=== PATIENT | male | born 1950 | race Hispanic/Latino ===

== ENCOUNTER 2017-07-30 16:02 | Emergency (ER) | payer MEDICAID, MEDICARE ==
[2017-07-30] MEDS ORDERED: ISOVUE-370 76%-LOCM 1 ML ONE (16:12)
--- NOTE | 2017-07-30 16:57 | RAD ---
RADIOGRAPH CHEST 1 VIEW: HISTORY: 66-year-old male with hematemesis. FINDINGS: There is no air space density, pulmonary edema, or pneumothorax. The lateral costophrenic angles ar e sharp. IMPRESSION: No acute pulmonary findings. margareth [] POS: KYLAH
[2017-07-30 17:04] LABS: #Eosinphils 0.1 thou/uL (0.0-0.7); #Lymphocytes 0.7 thou/uL (1.20-3.40); #Monocytes 0.4 thou/uL (0.11-0.59); %Eosinophils 0.7 % (0.0-10.0); %Lymphocytes 7.2 % (21.0-51.0); %Monocytes 3.9 % (0.0-10.0); Hematocrit 47.1 % (42.0-52.0); Mean Platelet Volume 10.4 fL (7.4-10.4); Red Blood Cell (RBC) Count 5.07 mill/uL (4.70-6.10); White Blood Cell (WBC) Count 10.2 thou/uL (4.8-10.8)
[2017-07-30 17:10] LABS: PTT 35.7 SEC (22.9-36.1); Prothrombin Time 13.9 SEC (12.0-14.7)
[2017-07-30 17:23] LABS: ALT (SGPT) 23 U/L (8-55); AST (SGOT) 17 U/L (5-34); Alkaline Phosphatase 114 U/L (40-150); Anion Gap 14 mmol/L (10-20); BUN (Urea Nitrogen) 21 mg/dL (8.4-25.7); Bilirubin, Total 0.5 mg/dL (0.2-1.2); Calc. Creatinine Clearance 0 mL/min (70-130); Calcium 10.4 mg/dL (7.8-10.44); Carbon Dioxide 31 mmol/L (23-31); Chloride 100 mmol/L (98-107); Estimated GFR-MDRD Greater than 90; Globulin 3.6 g/dL (2.4-3.5); Lipase 52 U/L (8-78); Magnesium 1.8 mg/dL (1.6-2.6); Protein, Total 7.6 g/dL (5.8-8.1)
[2017-07-30] MEDS ORDERED: Ondansetron HCl/PF 4 MG/2 ML Vial ONE (18:52)
[2017-07-30] MEDS ORDERED: Metoclopramide HCl 10 MG/2 ML VIAL ONE (20:53)
--- NOTE | 2017-07-30 21:27 | CT ---
CT ABDOMEN WITH CONTRAST CT PELVIS WITH CONTRAST: DATE: 07/30/2017 TIME: 7:23 p.m. HISTORY: A 66-year-old male with hematemesis, vomiting, and nausea. Small bowel obstruction. COMPARISON: 02/05/2014 TECHNIQUE: IV injection of iodinated contrast media: Administered. Oral contrast media: Not administered. FINDINGS: Again noted is the percutaneous gastrostomy tube. Again noted is the ventral diastasis between the very thin left and right rectus abdominus muscles, at midline, in the upper portion of the abdomen. This has widened from previous diameter of 5.8 cm, to current diameter of 7 cm. Again noted is a p ortion of the gastric body herniating through this. There is a new finding of a loop of transverse colon which also now herniates through this. There is no edema within the hernia sac, and no coloni c or small intestinal dilation to indicate any bowel obstruction. The lung bases are grossly clear. No pneumoperitoneum or ascites. Atherosclerotic calcification without aneurysm of the abdominal a ephraim. Distended urinary bladder with normal, thin zavala. No acute colonic diverticulitis. Normal appendix. Adherence of ascending colon and small bowel loops to the right anterior peritoneal surfa ce, suggestive of adhesions from previous surgery. No fat stranding. A dependent layer of numerous tiny calcified gallstones, significantly increased in number since previous CT. No gallbladder wal l thickening or pericholecystic edema. No major pathology of the bilateral kidneys, liver, pancreas , adrenals, or spleen. Diffuse mural thickening and mural low attenuation of the distal esophagus. IMPRESSION: 1. Possible esophagitis. 2. Percutaneous gastrostomy tube. 3. Interval widening of ventral hernia, with herniation of portions of the transverse colon and sto mach. 4. Cholelithiasis without acute cholecystitis. 5. No small bowel obstruction. JAKE Riley POS: KYLA[facility]
== END 2017-07-30 21:55 | disposition home or self-care (01) ==
LOC: ERS 16:02
DX: K20.9 Esophagitis, unspecified (principal); D64.9 Anemia, unspecified; E11.9 Type 2 diabetes mellitus without complications; F32.9 Major depressive disorder, single episode, unspecified; F41.9 Anxiety disorder, unspecified; I10 Essential (primary) hypertension; J44.9 Chronic obstructive pulmonary disease, unspecified; K21.9 Gastro-esophageal reflux disease without esophagitis; Z87.891 Personal history of nicotine dependence; Z86.73 Personal history of transient ischemic attack (TIA), and cerebral infarction without residual deficits; Z79.84 Long term (current) use of oral hypoglycemic drugs; Z79.899 Other long term (current) drug therapy
CPT/HCPCS: 36415; 71010; 74177; 80053; 82271; 82274; 83690; 83735; 85025; 85610; 85730; 86850; 86900; 86901; 96361; 96365; 96375; J2405; J2765

== ENCOUNTER 2018-01-18 16:16 | Emergency (ER) | payer MEDICARE, MEDICAID ==
[~2018-01-18 16:16] MED LIST: ISOVUE-370 76%-LOCM 1 ML ONE; Iopamidol 370 76% 50 ML VIAL FS ONE
[2018-01-18] MEDS ORDERED: Ondansetron HCl/PF 4 MG/2 ML Vial ONE (17:07)
[2018-01-18 17:17] LABS: Hemoglobin 15.4 g/dL (14.0-18.0); Mean Corpuscular HGB CONC 34.7 g/dL (32.0-36.0); Mean Platelet Volume 10.5 fL (7.4-10.4); Platelet Count 158 thou/uL (130-400); RBC Distribution Width 12.4 % (11.5-14.5); White Blood Cell (WBC) Count 13.7 thou/uL (4.8-10.8)
--- NOTE | 2018-01-18 17:20 | RAD ---
PORTABLE CHEST: FINDINGS: Provided Clinical History: Cough. FINDINGS: Comparison 07-30-17. Cardiac and mediastinal silhouette is unchanged in appearance. Lungs appear clear. No pleural fluid o r pneumothorax apparent. IMPRESSION: No evidence for an acute cardiopulmonary process. POS: CET
[2018-01-18 17:22] LABS: INR-International Normal Ratio 1.2; PTT 38.8 SEC (22.9-36.1)
[2018-01-18 17:31] LABS: Band 6 % (5-11); Eosinophils 1 % (0-10); Lymphocytes 1 % (21-51); MDiff Complete? YES; Monocytes 1 % (0-10); Neutrophil 90 % (42-75); PLT Morphology Comment Appears Adequate; RBC Morphology Normal; Reactive Lymphocytes 1 % (0-10)
[2018-01-18 17:39] LABS: ALT (SGPT) 33 U/L (8-55); AST (SGOT) 21 U/L (5-34); Alkaline Phosphatase 112 U/L (40-150); Anion Gap 15 mmol/L (10-20); BUN (Urea Nitrogen) 18 mg/dL (8.4-25.7); Bilirubin, Total 1.2 mg/dL (0.2-1.2); CK (CPK) 55 U/L (30-200); Calc. Creatinine Clearance 0 mL/min (70-130); Carbon Dioxide 26 mmol/L (23-31); Chloride 101 mmol/L (98-107); Estimated GFR-MDRD Greater than 90; Globulin 3.5 g/dL (2.4-3.5); Glucose 126 mg/dL (80-115); Potassium 4.2 mmol/L (3.5-5.1); Protein, Total 7.5 g/dL (5.8-8.1); Sodium 138 mmol/L (136-145)
--- NOTE | 2018-01-18 21:34 | CT ---
ABDOMEN AND PELVIC CT SCAN WITH IV CONTRAST: 01/18/18 HISTORY: 67-year-old male with abdominal distention. COMPARISON: 07/30/17. FINDINGS: Minimal bilateral posterior pleural thickening and minimal pleural based parenchymal changes having m ore of an appearance of chronic change versus some minimal subsegmental atelectasis. There does appea r to be some distal esophageal borderline wall thickening, nonspecific, possibly related to some esop hagitis. Three vessel coronary artery calcific disease. Gallstones in the dependent portion of the ga llbladder without gallbladder wall thickening or pericholecystic fluid or fat stranding. The liver, p ancreas, spleen, adrenal glands are unremarkable. No evidence for renal calculi or acute obstructi on. Again noted is a very large ventral hernia which contains a portion of a somewhat gas and barium distended stomach, although there does not appear to be any associated obstruction with this. Gastros delmer tube in place. Oral contrast has progressed throughout most of the small bowel and into the ileu m in the right lower quadrant without evidence for associated bowel obstruction. No CT evidence for a cute appendicitis. 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 No abscess or adenopathy or abnormal fluid collection. IMPRESSION: Fairly large anterior abdominal defect/ventral hernia containing a somewhat gas and barium distended portion of the stomach without evidence for associated obstruction. Contrast media has progressed wel l into the ileum. Cholelithiasis without cholecystitis. Possible mild thickening of the distal esopha garfield, nonspecific. Nonspecific pleural thickening and pleural based parenchymal changes in both lung b ases, possibly chronic versus minimal subsegmental atelectasis. No evidence for other significant acu te process. POS: KYLA[facility]
--- NOTE | 2018-01-22 00:26 | EKG ---
Test Reason : Blood Pressure : / mmHG Vent. Rate : 096 BPM Atrial Rate : 096 BPM P-R Int : 148 ms QRS Dur : 080 ms QT Int : 364 ms P-R-T Axes : 044 070 043 degrees QTc Int : 459 ms Normal sinus rhythm Nonspecific T wave abnormality Abnormal ECG Confirmed by ANGELA TORO ([id number]), television news video editor DESHAWN PAEZ ([id number]) on 01/22/2018 12:25:29 AM Referred By: Confirmed By:ANGELA TORO
== END 2018-01-18 21:54 | disposition home or self-care (01) ==
LOC: ERS 16:16
DX: K43.9 Ventral hernia without obstruction or gangrene (principal); K20.9 Esophagitis, unspecified; J44.9 Chronic obstructive pulmonary disease, unspecified; I10 Essential (primary) hypertension; D64.9 Anemia, unspecified; F41.9 Anxiety disorder, unspecified; F32.9 Major depressive disorder, single episode, unspecified; E11.9 Type 2 diabetes mellitus without complications; K21.9 Gastro-esophageal reflux disease without esophagitis; Z79.899 Other long term (current) drug therapy; Z87.442 Personal history of urinary calculi; Z87.891 Personal history of nicotine dependence; Z86.73 Personal history of transient ischemic attack (TIA), and cerebral infarction without residual deficits
CPT/HCPCS: 36415; 71045; 74177; 80053; 82550; 85025; 85610; 85730; 86850; 86900; 86901; 87040; 87149; 87186; 93005; 94760; 96374; J2405

== ENCOUNTER 2018-01-24 09:31 | Emergency (ER) | payer MEDICARE, MEDICAID ==
[2018-01-24 10:33] LABS: Hemoglobin 13.9 g/dL (14.0-18.0); Mean Corpuscular HGB CONC 33.8 g/dL (32.0-36.0); Mean Corpuscular Hemoglobin 32.4 pg (27.0-31.0); Mean Corpuscular Volume 95.9 fl (80.0-94.0); Mean Platelet Volume 9.8 fL (7.4-10.4); Platelet Count 215 thou/uL (130-400); RBC Distribution Width 12.3 % (11.5-14.5); Red Blood Cell (RBC) Count 4.29 mill/uL (4.70-6.10); White Blood Cell (WBC) Count 7.8 thou/uL (4.8-10.8)
[2018-01-24 10:52] LABS: ALT (SGPT) 29 U/L (8-55); AST (SGOT) 23 U/L (5-34); Albumin 3.7 g/dL (3.4-4.8); Alkaline Phosphatase 94 U/L (40-150); Anion Gap 12 mmol/L (10-20); BUN (Urea Nitrogen) 20 mg/dL (8.4-25.7); Band 4 % (5-11); Bilirubin, Total 0.3 mg/dL (0.2-1.2); CRP (Inflammatory) 3.64 mg/dL (= or < 0.5); Calc. Creatinine Clearance 0 mL/min (70-130); Calcium 9.9 mg/dL (7.8-10.44); Carbon Dioxide 29 mmol/L (23-31); Chloride 103 mmol/L (98-107); Eosinophils 3 % (0-10); Estimated GFR-MDRD Greater than 90; Globulin 3.6 g/dL (2.4-3.5); Glucose 131 mg/dL (80-115); Lymphocytes 12 % (21-51); MDiff Complete? YES; Monocytes 5 % (0-10); Neutrophil 76 % (42-75); Potassium 4.1 mmol/L (3.5-5.1); Protein, Total 7.3 g/dL (5.8-8.1); RBC Morphology Normal; Sodium 140 mmol/L (136-145)
== END 2018-01-24 13:10 | disposition home or self-care (01) ==
LOC: ERS 09:31
DX: R10.9 Unspecified abdominal pain (principal); F03.90 Unspecified dementia, unspecified severity, without behavioral disturbance, psychotic disturbance, mood disturbance, and anxiety; I10 Essential (primary) hypertension; J44.9 Chronic obstructive pulmonary disease, unspecified; D64.9 Anemia, unspecified; E11.9 Type 2 diabetes mellitus without complications; K21.9 Gastro-esophageal reflux disease without esophagitis; F41.9 Anxiety disorder, unspecified; Z87.442 Personal history of urinary calculi; Z87.891 Personal history of nicotine dependence; Z79.899 Other long term (current) drug therapy; Z79.84 Long term (current) use of oral hypoglycemic drugs
CPT/HCPCS: 36415; 80053; 85025; 85652; 86140; 87040; 99285

== ENCOUNTER 2018-07-11 16:18 | Emergency (ER) | payer MEDICARE, MEDICAID | END 2018-07-11 16:38 | disposition home or self-care (01) | LOC: ERS 16:18 | DX: Z43.1 Encounter for attention to gastrostomy (principal); F41.9 Anxiety disorder, unspecified; F32.9 Major depressive disorder, single episode, unspecified; D64.9 Anemia, unspecified; I10 Essential (primary) hypertension; J44.9 Chronic obstructive pulmonary disease, unspecified; Z86.73 Personal history of transient ischemic attack (TIA), and cerebral infarction without residual deficits; Z79.899 Other long term (current) drug therapy; Z87.442 Personal history of urinary calculi; Z79.84 Long term (current) use of oral hypoglycemic drugs | CPT/HCPCS: 43760; B4087 ==

== ENCOUNTER 2019-05-25 11:24 | Inpatient (IN) | payer MEDICARE, MEDICAID ==
--- NOTE | 2019-05-25 13:22 | CT ---
CT OF THE ABDOMEN AND PELVIS WITH CONTRAST: Date: 05/25/19 COMPARISON: 01/18/18. HISTORY: Sepsis. TECHNIQUE: Multiple contiguous axial images were obtained in a CT of the abdomen and pelvis with contrast. A sma ll amount of enteric contrast was given. Coronal reformats were performed. FINDINGS: There are calcified gallstones in the gallbladder. The liver, kidneys, adrenal glands, spleen, and pa ncreas are unremarkable. No free air, free fluid, or stranding changes are seen in the abdomen or pel vis. The patient has a large ventral hernia measuring 6.2 cm in width containing colon and stomach. A meng rostomy tube is seen in the stomach. The small bowel is normal in caliber. No abdominal or pelvic lym phadenopathy seen. Atherosclerotic calcifications are seen in the aorta. Degenerative changes are seen in the spine. Bibasilar atelectasis is seen in the lung bases. IMPRESSION: 1. Cholelithiasis. 2. Ventral hernia containing stomach and colon that are nonobstructed. POS: KYLA[facility]
[2019-05-25 14:11] LABS: Lactic Acid 1.6 mmol/L (0.5-2.2)
[2019-05-25] MEDS ORDERED: ISOVUE-370 76%-LOCM 1 ML ONE (15:49)
[2019-05-25] MEDS ORDERED: Ondansetron ODT 4 MG TAB SL PRN (16:15)
[2019-05-25] MEDS ORDERED: Sodium Chloride 0.9% 1,000 ML IV SCH (16:15)
[2019-05-25] MEDS ORDERED: Ondansetron PF 4 MG/2 ML Vial IVP PRN (16:15)
[2019-05-25 16:34] VITALS: BMI 25.4
[2019-05-25] MEDS ORDERED: Piperacillin/Tazobactam 4.5 GM in Sodium Chloride 0.9% 100 ML IVPB SCH (17:00)
[2019-05-25] MEDS ORDERED: Acetaminophen 650 MG Suppository PR PRN (18:11)
[2019-05-25] MEDS ORDERED: Bisacodyl 10 MG SUPP PR PRN (18:11)
[2019-05-25] MEDS ORDERED: Enoxaparin Sodium 40 MG/0.4 ML SYRINGE SC SCH (18:15)
[2019-05-25] MEDS ORDERED: Dextrose 50% Abboject 50 ML SYRINGE SLOW IVP PRN (18:44)
[2019-05-25] MEDS ORDERED: Insulin Regular 300 UNITS/3 ML VIAL SC PRN (18:44)
[2019-05-25] MEDS ORDERED: Dextrose 5% in Water 1,000 ML IV PRN (18:44)
[2019-05-25] MEDS ORDERED: hydrALAZINE 20 MG/ML VIAL SLOW IVP PRN (18:48)
[2019-05-25] MEDS ORDERED: Haloperidol Lactate 5 MG/ML VIAL IM PRN (18:49)
[2019-05-25] MEDS ORDERED: Lorazepam 2 MG/ML VIAL SLOW IVP PRN (18:50)
[2019-05-25 19:35] LABS: Bilirubin Negative (Negative); Blood, Urine 2+ (Negative); Clarity Clear (Clear); Glucose, Urine (Dipstick) Normal (Negative); Leukocyte 25 Leu/uL (Negative); Nitrite Negative (Negative); Protein, Urine (Dipstick) 10 mg/dL (Neg-Trace); Urobilinogen Normal mg/dL (Less than 2)
--- NOTE | 2019-05-25 19:45 | RAD ---
XR Chest 1 View History: Shortness of breath Comparison: Radiograph same day Findings: Mild atelectasis in the lung bases. No pneumothorax. No acute osseous abnormality. There is a collection of contrast within the gastric fundus. Impression: Mild atelectasis in the lung bases.
[2019-05-25] MEDS: levETIRAcetam In NaCl (Iso-Os) 1,000 MG in Premix Bag 1 BAG IVPB SCH (20:26)
--- NOTE | 2019-05-25 20:37 | HP ---
CHIEF COMPLAINT: Sepsis. HISTORY OF PRESENT ILLNESS: Mr. Cannon is an unfortunate 68-year-old gentleman with extensive past medical history including stroke with residual deficits, dysphagia with chronic PEG tube, hypertension, seizure disorder, depression, BPH, seasonal allergies, and diabetes. The patient is minimally verbal at baseline and is able to only answer yes and no to simple questions. Per history, the patient is a chronic resident of long term facility. There was some difficulty with his feeding tube and the patient was transferred for further evaluation where he was found to be febrile and having elevated WBC count. He was transferred to [facility] for higher level of care. History is primarily obtained from chart and staff as the patient is not able to give meaningful history. At outside facility, the patient was found to have WBC count of 15,000 and fever of 102 in addition to elevated lactic acid level at 2.8. Upon arrival to [place], the patient was found to be afebrile after administration of broad-spectrum antibiotics including vancomycin and Zosyn in addition to several liters of IV fluid resuscitation. It was reported that the patient was having malfunctioning PEG tube at [facility], however, when further tested in the emergency department, appears to be flushing and returning fluid without difficulty. I have found the patient on the medical floor/surgical floor in no apparent distress and resting in bed comfortably. The patient does have significant flexion contractures of the right upper extremity and profound generalized weakness. Again, the patient not able to give much meaningful history at this time. PAST MEDICAL HISTORY: 1. Cerebrovascular accident with residual right-sided motor deficits with flexion contractures. 2. Seizure disorder. 3. Diabetes mellitus. 4. Hypertension. 5. Hyperlipidemia. 6. Depression. 7. GERD. 8. BPH. REVIEW OF SYSTEMS: A 10-point review of systems was obtained, however, unreliable secondary to the patient's mental status. MEDICATIONS: See full list for details: 1. Multivitamin. 2. Amlodipine. 3. Acetaminophen. 4. Escitalopram. 5. Doxazosin. 6. Docusate liquid. 7. Loratadine. 8. Esomeprazole. 9. Metoprolol tartrate. 10. Milk of magnesia. 11. Potassium chloride. 12. Polyethylene glycol 3350 (MiraLax). 13. Zofran. 14. Ranitidine. 15. Keppra. 16. Simethicone. 17. Saccharomyces. 18. Metformin. ALLERGIES: CODEINE. PHYSICAL EXAMINATION: GENERAL: The patient is lying in bed, in no acute distress. He is responsive with yes and no to simple questions; however, he is not able to give any other words or significant history. VITAL SIGNS: Temperature on arrival 98.3, pulse 81, respirations 20, O2 saturations 95% on 2 L nasal cannula, blood pressure 124/76. HEENT: The patient has moist mucous membranes. Pupils are equally round and reactive to light and accommodation. Extraocular muscles are intact. NECK: Supple. CARDIOVASCULAR: Regular rate and rhythm. No murmur appreciated. No rubs or gallops. LUNGS: There is diffuse wheezing bilaterally in upper lung moise, more significant in lower lung moise. There are few scattered rhonchi, no rales. ABDOMEN: PEG tube is intact, however, not connected. Dressing is clean and dry. There is no obvious infection at PEG tube site. Abdomen is soft, nontender, nondistended. EXTREMITIES: Right upper extremity with flexion contracture. The patient does resist active and passive range of motion and it is stuck in a flexed position. The patient is globally weak, however, motor strength cannot be accurately assessed secondary to mental status. PSYCHIATRIC: The patient answers yes to his name and answers no to if he knows where he is at. The patient answers no to pain. LABORATORY DATA: Much of the laboratory data was performed at outside facility and initially reviewed for WBC count of 15,000. Lactic acid level of 2.8. Please see for transfer documents for detail. IMAGING DATA: CT scan of the abdomen, impression: 1. Cholelithiasis without acute cholecystitis. 2. Ventral hernia containing the stomach that is nonobstructive. 3. Gastrostomy tube is seen in the stomach. ASSESSMENT: 1. Sepsis without definitive source at this time. Chest x-ray was clear from outside facility. Urinalysis is pending though the patient is a resident of a nursing facility. The patient was started on broad-spectrum IV antibiotics, sepsis protocol, IV fluid resuscitation. 2. Leukocytosis. 3. Fever. 4. Cerebrovascular accident with residual deficits on the right side. 5. Seizure disorder. 6. Diabetes mellitus. 7. Hypertension. 8. Hyperlipidemia. 9. Benign prostatic hypertrophy. 10. Chronic dysphagia with percutaneous endoscopic gastrostomy tube. PLAN: 1. Admit to medical floor/surgical unit. 2. Broad-spectrum IV antibiotics. 3. IV fluid resuscitation. 4. Sepsis protocol. 5. Gastroenterology consultation requested to further assess the patient's malfunctioning PEG tube that was reported at long term [facility]. 6. We will resume enteral nutrition after being given the okay by Gastroenterology. 7. Resume home medications as able, no oral medications at this time as we are not using the PEG tube. 8. Symptomatic control of elevated blood pressure. 9. Symptomatic control for agitation. Job ID: [id number]
[2019-05-25] MEDS ORDERED: Vancomycin HCl 1 GM in Premix Bag 1 BAG IVPB SCH (22:00)
[2019-05-25] MEDS: Vancomycin HCl 1.25 GM in Sodium Chloride 0.9% 250 ML 250 ML IVPB SCH (22:17)
[2019-05-26] MEDS: Piperacillin/Tazobactam 4.5 GM in Sodium Chloride 0.9% 100 ML IVPB SCH ×5 (00:04→23:54)
[2019-05-26 05:53] LABS: #Lymphocytes 0.6 thou/uL (1.20-3.40); #Monocytes 0.8 thou/uL (0.11-0.59); #Neutrophils 8.3 thou/uL (1.40-6.50); %Eosinophils 0.1 % (0.0-10.0); %Lymphocytes 5.9 % (21.0-51.0); %Monocytes 8.1 % (0.0-10.0); %Neutrophils 85.9 % (42.0-75.0); Hemoglobin 12.9 g/dL (14.0-18.0); Mean Corpuscular HGB CONC 34.4 g/dL (32.0-36.0); Mean Corpuscular Hemoglobin 32.3 pg (27.0-31.0); Mean Platelet Volume 11.2 fL (7.4-10.4); Platelet Count 127 thou/uL (130-400); Red Blood Cell (RBC) Count 3.99 mill/uL (4.70-6.10); White Blood Cell (WBC) Count 9.6 thou/uL (4.8-10.8)
[2019-05-26 06:10] LABS: Albumin 3.3 g/dL (3.4-4.8); Anion Gap 11 mmol/L (10-20); BUN (Urea Nitrogen) 15 mg/dL (8.4-25.7); BUN/Creatinine Ratio 20.55; Calc. Creatinine Clearance 113 mL/min (70-130); Calcium 8.5 mg/dL (7.8-10.44); Carbon Dioxide 24 mmol/L (23-31); Chloride 108 mmol/L (98-107); Estimated GFR-MDRD Greater than 90; Glucose 109 mg/dL (80-115); Potassium 3.1 mmol/L (3.5-5.1); Sodium 140 mmol/L (136-145)
[2019-05-26 06:16] LABS: Phosphorus 1.9 mg/dL (2.3-4.7)
[2019-05-26] MEDS ORDERED: Potassium Phosphate 21 MMOL in Sodium Chloride 0.9% 250 ML 250 ML IVPB SCH (06:45)
[2019-05-26] MEDS ORDERED: Furosemide 40 MG/4 ML VIAL SLOW IVP SCH (06:45)
[2019-05-26] MEDS: levETIRAcetam In NaCl (Iso-Os) 1,000 MG in Premix Bag 1 BAG IVPB SCH (09:05)
[2019-05-26] MEDS: Vancomycin HCl 1.25 GM in Sodium Chloride 0.9% 250 ML 250 ML IVPB SCH ×2 (10:30→22:27)
[2019-05-26] MEDS ORDERED: Docusate Sodium 100 MG/10 ML UDCUP PER TUBE PRN (13:32)
[2019-05-26] MEDS ORDERED: Loratadine 10 MG TAB PER TUBE PRN (13:32)
[2019-05-26] MEDS ORDERED: Polyethylene Glycol 3350 17 GM Packet PER TUBE PRN (13:32)
[2019-05-26] MEDS ORDERED: Milk Of Magnesia 30 ML UDCUP PER TUBE PRN (13:32)
[2019-05-26] MEDS ORDERED: [UNRECOGNIZED DRUG - REMARK] PER TUBE PRN (13:32)
[2019-05-26] MEDS ORDERED: Non-Formulary Item 1 EACH (Ondansetron Hcl [Zofran] 4 MG) PER TUBE PRN (13:32)
[2019-05-26] MEDS ORDERED: Mag-Al Plus 1200 MG/1200 MG/120 MG/30 ML UDCUP PER TUBE PRN (13:32)
[2019-05-26] MEDS ORDERED: Acetaminophen 650 MG/20.3 ML UDCUP PER TUBE PRN (13:40)
[2019-05-26] MEDS ORDERED: Ondansetron ORAL SOLN. 4 MG/5 ML UDCUP PER TUBE PRN (13:53)
--- NOTE | 2019-05-26 14:10 | PDOC.HOSPP ---
- Subjective Subjective: Patient seen and examined. Doing better clinically. Discussed case with GI who state that PEG tube is now functional. Patient more quick to respond to questions. Denies pain. Denies trouble breathing though there are still audible secretions in upper airway even without stethoscope. Duonebs seem to be helping. Resuming meds and feedings via PEG. - Objective Vital Signs & Weight: Vital Signs (12 hours) Temp Pulse Resp BP Pulse Ox 05/26/19 11:05 99 20 96 05/26/19 10:35 99.0 F 99 18 132/76 100 05/26/19 08:31 100 05/26/19 08:28 100 05/26/19 07:31 97.7 F 110 H 18 129/75 100 05/26/19 07:14 99 05/26/19 07:12 98 20 99 05/26/19 04:00 98.6 F 102 H 18 129/75 97 05/26/19 02:27 103 H 18 96 Weight Weight 177 lb Result Diagrams: 05/26/19 05:27 05/26/19 05:27 Additional Labs: Accuchecks 05/26/19 05/26/19 05/26/19 10:42 08:32 05:18 POC Glucose 134 H 130 H 109 05/26/19 05/25/19 00:19 19:26 POC Glucose 113 H 117 H Radiology Reviewed by me: Yes (Reviewed CXR portable) ROS - Medication Medications: Active Medications Generic Name Dose Route Start Last Admin Trade Name Freq PRN Reason Stop Dose Admin Albuterol/Ipratropium 3 ml 05/25/19 22:30 05/26/19 11:05 Duoneb NEB 3 ml [id number] ZHANG Administration Vancomycin HCl 1.25 gm/ Sodium 250 mls @ 166.67 mls/hr 05/25/19 22:00 10:30 Chloride IVPB 250 mls 1000,2200 ZHANG Administration Piperacillin Sod/Tazobactam 100 mls @ 200 mls/hr 05/25/19 23:59 05/26/19 12: 50 Sod 4.5 gm/ Sodium Chloride IVPB 06/01/19 23:59 100 mls Q6HR ZHANG Administration - Exam NAD Eye: PERRL, anicteric sclera Neck: supple, symmetric Heart: RRR, no murmur Respiratory: rhonchi, wheezes Respiratory - other findings: Decreased pulm excursion, poor air movement secondary to position in bed Gastrointestinal: soft, non-tender, non-distended Gastrointestinal - other findings: PEG tube in position, dressing clean and dry Extremities: no edema Skin: normal turgor, no lesions Skin - other findings: No significant skin breakdown/ sacral decub, see wound care pictures Neurological: no new deficit Neurological - other findings: Baseline flexion contractures and motor deficits from old CVA Musculoskeletal: generalized weakness, diffuse muscle atrophy Psychiatric: oriented to person, flat affect, lethargic Hosp A/P - Plan Plan: GI consultion, recommendations appreciated PEG tube now functional Resume diet and meds via PEG On broad spectrum ABX for sepsis. Improving WBC count 15 -> 9.6 Lactic acidosis resolving No significant growth on cultures to date Would consider ID consult if patient does not respond to IV ABX DVT PPX GI PPX
[2019-05-26] MEDS: levETIRAcetam 500 mg/5 ml Oral Solution PER TUBE SCH (20:28)
[2019-05-26] MEDS: Famotidine 40 MG/5 ML Oral Suspension PER TUBE SCH (20:30)
[2019-05-26] MEDS: Metoprolol Tartrate 50 MG TAB PER TUBE SCH (20:30)
[2019-05-26] MEDS: Simethicone Chewable 80 MG TAB PER TUBE SCH (20:30)
[2019-05-26] MEDS ORDERED: Non-Formulary Item 1 EACH (Ranitidine Hcl [Ranitidine Hcl] 150 MG) PER TUBE SCH (21:00)
[2019-05-26 21:26] LABS: Vancomycin, Trough 16.9 ug/mL
[2019-05-27] MEDS: Piperacillin/Tazobactam 4.5 GM in Sodium Chloride 0.9% 100 ML IVPB SCH ×3 (05:24→17:54)
[2019-05-27 06:04] LABS: Hemoglobin 12.5 g/dL (14.0-18.0); Mean Corpuscular HGB CONC 33.6 g/dL (32.0-36.0); Mean Corpuscular Hemoglobin 31.7 pg (27.0-31.0); Mean Corpuscular Volume 94.5 fL (78.0-98.0); Mean Platelet Volume 11.5 fL (7.4-10.4); Platelet Count 133 thou/uL (130-400); RBC Distribution Width 12.1 % (11.5-14.5); Red Blood Cell (RBC) Count 3.95 mill/uL (4.70-6.10); White Blood Cell (WBC) Count 9.4 thou/uL (4.8-10.8)
[2019-05-27 06:29] LABS: Anion Gap 13 mmol/L (10-20); BUN (Urea Nitrogen) 17 mg/dL (8.4-25.7); Calc. Creatinine Clearance 79 mL/min (70-130); Calcium 9.1 mg/dL (7.8-10.44); Carbon Dioxide 25 mmol/L (23-31); Chloride 107 mmol/L (98-107); Estimated GFR-MDRD 71; Glucose 109 mg/dL (80-115); Sodium 142 mmol/L (136-145)
[2019-05-27 06:34] LABS: Potassium 2.8 mmol/L (3.5-5.1)
[2019-05-27] MEDS: levETIRAcetam 500 mg/5 ml Oral Solution PER TUBE SCH ×2 (08:58→20:13)
[2019-05-27] MEDS: Pantoprazole 40 MG GRANULES PACKET PER TUBE SCH (08:59)
[2019-05-27] MEDS: Metoprolol Tartrate 50 MG TAB PER TUBE SCH ×2 (08:59→20:13)
[2019-05-27] MEDS: Saccharomyces boulardii 250 MG CAP PER TUBE SCH (08:59)
[2019-05-27] MEDS: Doxazosin Mesylate 1 MG TAB PER TUBE SCH (08:59)
[2019-05-27] MEDS: Escitalopram Oxalate 20 mg Tablet PER TUBE SCH (08:59)
[2019-05-27] MEDS: Simethicone Chewable 80 MG TAB PER TUBE SCH ×2 (08:59→20:13)
[2019-05-27] MEDS: Multivits W-Minerals Liquid 15mL UDCUP PER TUBE SCH (09:00)
[2019-05-27] MEDS ORDERED: MULTIVITAMIN PER TUBE SCH (09:00)
[2019-05-27] MEDS ORDERED: IRON PER TUBE SCH (09:00)
[2019-05-27] MEDS ORDERED: Non-Formulary Item 1 EACH (Esomeprazole Magnesium [Nexium Oral Suspension] 40 MG) PER TUBE SCH (09:00)
[2019-05-27] MEDS ORDERED: FOLIC ACID PER TUBE SCH (09:00)
[2019-05-27] MEDS: Famotidine 40 MG/5 ML Oral Suspension PER TUBE SCH ×2 (09:00→20:16)
[2019-05-27] MEDS: Vancomycin HCl 1.25 GM in Sodium Chloride 0.9% 250 ML 250 ML IVPB SCH (09:00)
[2019-05-27] MEDS: Amlodipine 10 MG TAB PER TUBE SCH (11:39)
--- NOTE | 2019-05-27 13:03 | PDOC.HOSPP ---
- Subjective Subjective: Patient seen and examined. Clinically improved. Faster to answers questions. More awake and alert. Right side remains with deficit and flexion contracture. Denies pain. Breathing more easily, still with some rhonchi. - Objective Vital Signs & Weight: Vital Signs (12 hours) Temp Pulse Resp BP BP Pulse Ox 05/27/19 11:39 88 119/76 05/27/19 10:24 103 H 20 05/27/19 08:00 96 05/27/19 07:10 99.1 F 98 17 104/70 96 05/27/19 06:38 97 05/27/19 06:37 90 20 05/27/19 04:47 99.2 F 95 19 129/76 95 05/27/19 01:36 84 18 95 Weight Admit Weight 177 lb Weight 177 lb I&O: 05/26/19 05/27/19 05/28/19 06:59 06:59 06:59 Intake Total 1100 Balance 1100 Result Diagrams: 05/27/19 05:07 05/27/19 05:07 Additional Labs: Accuchecks 05/27/19 05/27/19 05/27/19 11:26 07:39 04:34 POC Glucose 122 H 134 H 155 H 05/26/19 05/26/19 21:19 16:29 POC Glucose 163 H 145 H Radiology Reviewed by me: Yes (No new imaging) ROS - Medication Medications: Active Medications Generic Name Dose Route Start Last Admin Trade Name Freq PRN Reason Stop Dose Admin Albuterol/Ipratropium 3 ml 05/25/19 22:30 05/27/19 10:24 Duoneb NEB 3 ml [id number] ZHANG Administration Amlodipine Besylate 10 mg 05/27/19 09:00 05/27/19 11:39 Norvasc PER TUBE 10 mg DAILY ZHANG Administration Doxazosin Mesylate 1 mg 05/27/19 09:00 05/27/19 08:59 Cardura PER TUBE 1 mg DAILY ZHANG Administration Escitalopram Oxalate 20 mg 05/27/19 09:00 05/27/19 08:59 Lexapro PER TUBE 20 mg DAILY ZHANG Administration Famotidine 20 mg 05/26/19 21:00 05/27/19 09:00 Pepcid PER TUBE 20 mg BID ZHANG Administration Vancomycin HCl 1.25 gm/ Sodium 250 mls @ 166.67 mls/hr 05/25/19 22:00 09:00 Chloride IVPB 250 mls 1000,2200 ZHANG Administration Piperacillin Sod/Tazobactam 100 mls @ 200 mls/hr 05/25/19 23:59 05/27/19 12: 58 Sod 4.5 gm/ Sodium Chloride IVPB 06/01/19 23:59 100 mls Q6HR ZHANG Administration Iron/Minerals/Multivitamins 15 ml 05/27/19 09:00 05/27/19 09:00 Certa Praveen Liquid PER TUBE 15 ml DAILY ZHANG Administration Levetiracetam 1,000 mg 05/26/19 21:00 05/27/19 08:58 Keppra Oral Solution PER TUBE 1,000 mg BID ZHANG Administration Metoprolol Tartrate 75 mg 05/26/19 21:00 05/27/19 08:59 Lopressor PER TUBE 75 mg BID ZHANG Administration Pantoprazole Sodium 40 mg 05/27/19 09:00 05/27/19 08:59 Protonix PER TUBE 40 mg DAILY ZHANG Administration Potassium Chloride 20 meq 05/27/19 09:00 05/27/19 11:38 Klor-Con PER TUBE 20 meq DAILY ZHANG Administration Potassium Chloride 20 meq 05/27/19 08:00 05/27/19 11:38 Klor-Con PO 20 meq BID-WM ZHANG Administration Saccharomyces Boulardii 250 mg 05/27/19 09:00 05/27/19 08:59 Florastor PER TUBE 250 mg DAILY ZHANG Administration Simethicone 80 mg 05/26/19 21:00 05/27/19 08:59 Mylicon Chewable PER TUBE 80 mg BID ZHANG Administration Sodium Chloride 10 ml 05/26/19 21:00 05/27/19 09:00 Flush - Normal Saline IVF 10 ml Q12HR ZHANG Administration - Exam NAD, awake alert Eye: PERRL, anicteric sclera ENT: moist mucosa Neck: supple, symmetric Heart: RRR, no murmur, no gallops, no rubs Respiratory: rhonchi (Though improving). negative: rales Respiratory - other findings: Improved air movement. Breathing more easily. Gastrointestinal: soft, non-tender, non-distended, normal bowel sounds, no palpable masses, no hepatomegaly, no splenomegaly Gastrointestinal - other findings: PEG in position Extremities: no edema Skin: no lesions Neurological: no new deficit, speech deficit (at baseline) Neurological - other findings: Right sided deficits at baseline. Left UE 4/4 motor. Left LE 2/4 motor. Musculoskeletal: generalized weakness Psychiatric: oriented to person, flat affect Hosp A/P - Plan old records reviewed/req, PT/OT Plan: De escilate broad spectrum ABX for sepsis, culture negative at 48 hours will D/ c vancomycin. No significant growth on cultures to date Continue Zosyn Improving WBC count 15 -> 9.6 -> 9.4 GI consultion, recommendations appreciated PEG tube now functional Resume diet and meds via PEG Continue home meds as able DVT PPX GI PPX
[2019-05-28] MEDS: Piperacillin/Tazobactam 4.5 GM in Sodium Chloride 0.9% 100 ML IVPB SCH ×4 (05:46→17:02)
[2019-05-28 05:53] LABS: Hemoglobin 12.5 g/dL (14.0-18.0); Mean Corpuscular HGB CONC 33.5 g/dL (32.0-36.0); Mean Corpuscular Hemoglobin 31.2 pg (27.0-31.0); Mean Corpuscular Volume 93.2 fL (78.0-98.0); Mean Platelet Volume 10.6 fL (7.4-10.4); Platelet Count 119 thou/uL (130-400); Red Blood Cell (RBC) Count 4.02 mill/uL (4.70-6.10); White Blood Cell (WBC) Count 7.5 thou/uL (4.8-10.8)
[2019-05-28 06:21] LABS: Anion Gap 12 mmol/L (10-20); BUN (Urea Nitrogen) 26 mg/dL (8.4-25.7); Calc. Creatinine Clearance 40 mL/min (70-130); Carbon Dioxide 23 mmol/L (23-31); Chloride 111 mmol/L (98-107); Estimated GFR-MDRD 33; Glucose 141 mg/dL (80-115); Potassium 3.9 mmol/L (3.5-5.1); Sodium 142 mmol/L (136-145)
[2019-05-28] MEDS: Doxazosin Mesylate 1 MG TAB PER TUBE SCH (09:53)
[2019-05-28] MEDS: Metoprolol Tartrate 50 MG TAB PER TUBE SCH ×2 (09:53→20:16)
[2019-05-28] MEDS: levETIRAcetam 500 mg/5 ml Oral Solution PER TUBE SCH ×2 (09:53→20:16)
[2019-05-28] MEDS: Escitalopram Oxalate 20 mg Tablet PER TUBE SCH (09:53)
[2019-05-28] MEDS: Pantoprazole 40 MG GRANULES PACKET PER TUBE SCH (09:54)
[2019-05-28] MEDS: Amlodipine 10 MG TAB PER TUBE SCH (09:54)
[2019-05-28] MEDS: Saccharomyces boulardii 250 MG CAP PER TUBE SCH (09:55)
[2019-05-28] MEDS: Simethicone Chewable 80 MG TAB PER TUBE SCH ×2 (09:55→20:16)
[2019-05-28] MEDS: Multivits W-Minerals Liquid 15mL UDCUP PER TUBE SCH (09:55)
[2019-05-28] MEDS: Famotidine 40 MG/5 ML Oral Suspension PER TUBE SCH (09:57)
--- NOTE | 2019-05-28 11:06 | CON ---
DATE OF CONSULTATION: 05/26/2019 REASON FOR CONSULTATION/HISTORY OF PRESENT ILLNESS: A 68-year-old Latin- Maltese male, previous CVA, status post PEG tube placement in the past. Apparently, there was some malfunctioning of the PEG tube and he was [facility]. There is also history of some fever of 102 at the [facility]. MEDICAL ILLNESSES: 1. CVA with residual right-sided weakness and contractions on the right side. 2. Seizure disorder. 3. Diabetes mellitus. 4. Hypertension. 5. Hyperlipidemia. 6. Depression. 7. Chronic upper extremity contractures 8. BPH. ALLERGIES: CODEINE. SOCIAL HISTORY: The patient does not smoke or drink alcohol. MEDICATIONS: List reviewed, multiple, per Dr. Graf's admitting history and physical. REVIEW OF SYSTEMS: Nonrelevant. PHYSICAL EXAMINATION: GENERAL: The patient appears very comfortable. He is awake and alert and does communicate well. He has abdominal pain and nausea. He has right-sided contractures upper extremities. VITAL SIGNS: Afebrile, pulse is 81, and blood pressure is 124/76. NECK: Supple. CARDIOVASCULAR SYSTEM: Within normal limits. LUNGS: Within normal limits. ABDOMEN: Soft. Abdomen is mildly distended, but nontender. Does have a gastrostomy tube and was irrigated with water and_ suctioned out, there is good flow. RECOMMENDATIONS: 1. We will start tube feeding as before. 2. We will sign off and if any problems, please call us back. Job ID: [id number] [id number]
[2019-05-28] MEDS: 1/2 NS w/KCL 20 mEq 1,000 ML IV SCH (12:55)
--- NOTE | 2019-05-28 14:35 | PDOC.HOSPP ---
- Subjective Subjective: Patient seen and examined. Clinically unchanged from yesterday. Yes and no to questions. Denies pain. Breathing better. Renal function up trending, starting IV fluids, will consider Nephrology consultation if does not improve. - Objective Vital Signs & Weight: Vital Signs (12 hours) Temp Pulse Resp BP BP Pulse Ox 05/28/19 14:07 106 H 20 96 05/28/19 13:00 123/65 05/28/19 10:28 87 16 96 05/28/19 10:11 98 05/28/19 09:54 106 H 123/67 05/28/19 07:17 98.0 F 106 H 18 123/67 98 05/28/19 06:35 98 16 94 L Weight Admit Weight 177 lb Weight 177 lb I&O: 05/27/19 05/28/19 05/29/19 06:59 06:59 06:59 Intake Total 1100 Balance 1100 Result Diagrams: 05/28/19 05:39 05/28/19 05:39 Additional Labs: Accuchecks 05/28/19 05/27/19 05/27/19 04:44 20:31 15:49 POC Glucose 140 H 127 H 126 H ROS - Medication Medications: Active Medications Generic Name Dose Route Start Last Admin Trade Name Freq PRN Reason Stop Dose Admin Albuterol/Ipratropium 3 ml 05/25/19 22:30 05/28/19 14:07 Duoneb NEB 3 ml [id number] ZHANG Administration Amlodipine Besylate 10 mg 05/27/19 09:00 05/28/19 09:54 Norvasc PER TUBE 10 mg DAILY ZHANG Administration Doxazosin Mesylate 1 mg 05/27/19 09:00 05/28/19 09:53 Cardura PER TUBE 1 mg DAILY ZHANG Administration Escitalopram Oxalate 20 mg 05/27/19 09:00 05/28/19 09:53 Lexapro PER TUBE 20 mg DAILY ZHANG Administration Piperacillin Sod/Tazobactam 100 mls @ 200 mls/hr 05/25/19 23:59 05/28/19 12: 34 Sod 4.5 gm/ Sodium Chloride IVPB 06/01/19 23:59 100 mls Q6HR ZHANG Administration Potassium Chloride/Sodium Chloride 1,000 mls @ 75 mls/hr 05/28/19 08:30 05/28 12:55 1/2 Ns W/Kcl 20 Meq IV 1,000 mls .[id number] ZHANG Administration Iron/Minerals/Multivitamins 15 ml 05/27/19 09:00 05/28/19 09:55 Certa Praveen Liquid PER TUBE 15 ml DAILY ZHANG Administration Levetiracetam 1,000 mg 05/26/19 21:00 05/28/19 09:53 Keppra Oral Solution PER TUBE 1,000 mg BID ZHANG Administration Metoprolol Tartrate 75 mg 05/26/19 21:00 05/28/19 09:53 Lopressor PER TUBE 75 mg BID ZHANG Administration Pantoprazole Sodium 40 mg 05/27/19 09:00 05/28/19 09:54 Protonix PER TUBE 40 mg DAILY ZHANG Administration Saccharomyces Boulardii 250 mg 05/27/19 09:00 05/28/19 09:55 Florastor PER TUBE 250 mg DAILY ZHANG Administration Simethicone 80 mg 05/26/19 21:00 05/28/19 09:55 Mylicon Chewable PER TUBE 80 mg BID ZHANG Administration Sodium Chloride 10 ml 05/26/19 21:00 05/28/19 09:57 Flush - Normal Saline IVF 10 ml Q12HR ZHANG Administration Sodium Chloride 10 ml 05/26/19 10:42 05/28/19 12:38 Flush - Normal Saline IVF 10 ml PRN PRN Administration Saline Flush - Exam NAD, awake alert Eye: PERRL, anicteric sclera ENT: moist mucosa Neck: supple, symmetric, no lymphadenopathy Heart: no murmur, no gallops, no rubs Respiratory: normal chest expansion, rhonchi, wheezes Respiratory - other findings: Few scattered rhonchi and wheezes - though improved since admission Gastrointestinal: soft, non-tender, non-distended, normal bowel sounds Gastrointestinal - other findings: Peg tube in position Extremities: no edema Neurological: no new deficit Neurological - other findings: Right sided deficits at baseline. Psychiatric: oriented to person, flat affect Hosp A/P (1) UTI (urinary tract infection) Status: Acute (2) History of CVA (cerebrovascular accident) Code(s): Z86.73 - PRSNL HX OF TIA (TIA), AND CEREB INFRC W/O RESID DEFICITS Status: Acute (3) ARNALDO (acute kidney injury) Code(s): N17.9 - ACUTE KIDNEY FAILURE, UNSPECIFIED Status: Acute (4) Dysphagia as late effect of cerebral aneurysm Code(s): I69.891 - DYSPHAGIA FOLLOWING OTHER CEREBROVASCULAR DISEASE Status: Acute (5) Shortness of breath Code(s): R06.02 - SHORTNESS OF BREATH Status: Acute (6) PEG tube malfunction Code(s): K94.23 - GASTROSTOMY MALFUNCTION Status: Acute - Plan Plan: Renal function up trending, starting IV fluids, will consider Nephrology consultation if does not improve. Start IV fluids for ARNALDO Confirmed with RN and dietitian that patient has been getting 200mL free water flush Q6 hours - though I&O only documented as 200mL for 24 hours De escilate broad spectrum ABX for sepsis, culture negative at 48 hours will D/ c vancomycin. No significant growth on cultures to date Continue Zosyn GI consultion, recommendations appreciated PEG tube now functional Resume diet and meds via PEG Continue home meds as able DVT PPX GI PPX
[2019-05-29] MEDS: Piperacillin/Tazobactam 4.5 GM in Sodium Chloride 0.9% 100 ML IVPB SCH ×5 (00:20→23:00)
[2019-05-29] MEDS: 1/2 NS w/KCL 20 mEq 1,000 ML IV SCH ×3 (05:14→23:00)
[2019-05-29 06:30] LABS: Hemoglobin 12.1 g/dL (14.0-18.0); Mean Corpuscular HGB CONC 33.5 g/dL (32.0-36.0); Mean Corpuscular Volume 95.6 fL (78.0-98.0); Mean Platelet Volume 10.7 fL (7.4-10.4); Platelet Count 118 thou/uL (130-400); Red Blood Cell (RBC) Count 3.78 mill/uL (4.70-6.10); White Blood Cell (WBC) Count 6.4 thou/uL (4.8-10.8)
[2019-05-29 06:46] LABS: Anion Gap 12 mmol/L (10-20); BUN (Urea Nitrogen) 27 mg/dL (8.4-25.7); Calc. Creatinine Clearance 40 mL/min (70-130); Calcium 8.7 mg/dL (7.8-10.44); Carbon Dioxide 23 mmol/L (23-31); Chloride 110 mmol/L (98-107); Estimated GFR-MDRD 32; Glucose 111 mg/dL (80-115); Potassium 4.2 mmol/L (3.5-5.1); Sodium 141 mmol/L (136-145)
[2019-05-29] MEDS: levETIRAcetam 500 mg/5 ml Oral Solution PER TUBE SCH ×2 (09:20→20:46)
[2019-05-29] MEDS: Metoprolol Tartrate 50 MG TAB PER TUBE SCH ×2 (09:20→20:48)
[2019-05-29] MEDS: Amlodipine 10 MG TAB PER TUBE SCH (09:20)
[2019-05-29] MEDS: Saccharomyces boulardii 250 MG CAP PER TUBE SCH (09:20)
[2019-05-29] MEDS: Simethicone Chewable 80 MG TAB PER TUBE SCH ×2 (09:21→20:48)
[2019-05-29] MEDS: Doxazosin Mesylate 1 MG TAB PER TUBE SCH (09:21)
[2019-05-29] MEDS: Escitalopram Oxalate 20 mg Tablet PER TUBE SCH (09:22)
[2019-05-29] MEDS: Multivits W-Minerals Liquid 15mL UDCUP PER TUBE SCH (09:22)
[2019-05-29] MEDS: Pantoprazole 40 MG GRANULES PACKET PER TUBE SCH (09:22)
--- NOTE | 2019-05-29 13:46 | PDOC.HOSPP ---
- Subjective Subjective: Seen and examined. Alert and oriented to his baseline. Denies pain. Breathing well. Renal function stabilized, if downtrends may plan for D/c back to SNF. - Objective Vital Signs & Weight: Vital Signs (12 hours) Temp Pulse Resp BP BP Pulse Ox 05/29/19 11:41 83 20 116/76 95 05/29/19 10:25 81 16 94 L 05/29/19 09:20 99 116/64 05/29/19 09:19 99 96 05/29/19 09:00 95 05/29/19 07:40 98.4 F 120 H 22 H 116/64 95 05/29/19 06:59 94 16 92 L 05/29/19 02:28 82 16 98 Weight Admit Weight 177 lb Weight 177 lb I&O: 05/28/19 05/29/19 05/30/19 06:59 06:59 06:59 Intake Total 3525 Balance 3525 Result Diagrams: 05/29/19 06:09 05/29/19 06:09 ROS - Medication Medications: Active Medications Generic Name Dose Route Start Last Admin Trade Name Freq PRN Reason Stop Dose Admin Albuterol/Ipratropium 3 ml 05/25/19 22:30 05/29/19 10:25 Duoneb NEB 3 ml [id number] ZHANG Administration Amlodipine Besylate 10 mg 05/27/19 09:00 05/29/19 09:20 Norvasc PER TUBE 10 mg DAILY ZHANG Administration Doxazosin Mesylate 1 mg 05/27/19 09:00 05/29/19 09:21 Cardura PER TUBE 1 mg DAILY ZHANG Administration Escitalopram Oxalate 20 mg 05/27/19 09:00 05/29/19 09:22 Lexapro PER TUBE 20 mg DAILY ZHANG Administration Piperacillin Sod/Tazobactam 100 mls @ 200 mls/hr 05/25/19 23:59 05/29/19 11: 38 Sod 4.5 gm/ Sodium Chloride IVPB 06/01/19 23:59 100 mls Q6HR ZHANG Administration Potassium Chloride/Sodium Chloride 1,000 mls @ 75 mls/hr 05/28/19 08:30 05/29 11:38 1/2 Ns W/Kcl 20 Meq IV Not Given .[id number] ZHANG Iron/Minerals/Multivitamins 15 ml 05/27/19 09:00 05/29/19 09:22 Certa Praveen Liquid PER TUBE 15 ml DAILY ZHANG Administration Levetiracetam 1,000 mg 05/26/19 21:00 05/29/19 09:20 Keppra Oral Solution PER TUBE 1,000 mg BID ZHANG Administration Metoprolol Tartrate 75 mg 05/26/19 21:00 05/29/19 09:20 Lopressor PER TUBE 75 mg BID ZHANG Administration Pantoprazole Sodium 40 mg 05/27/19 09:00 05/29/19 09:22 Protonix PER TUBE 40 mg DAILY ZHANG Administration Potassium Chloride 20 meq 05/28/19 17:00 05/29/19 09:17 Klor-Con PO 20 meq BID-WM ZHANG Administration Saccharomyces Boulardii 250 mg 05/27/19 09:00 05/29/19 09:20 Florastor PER TUBE 250 mg DAILY ZHANG Administration Simethicone 80 mg 05/26/19 21:00 05/29/19 09:21 Mylicon Chewable PER TUBE 80 mg BID ZHANG Administration Sodium Chloride 10 ml 05/26/19 21:00 05/29/19 09:22 Flush - Normal Saline IVF Not Given Q12HR ZHANG Sodium Chloride 10 ml 05/26/19 10:42 05/28/19 12:38 Flush - Normal Saline IVF 10 ml PRN PRN Administration Saline Flush - Exam NAD, awake alert Eye: PERRL Eye - other findings: EOMI ENT: moist mucosa Neck: supple, no JVD Heart: RRR, no murmur, no gallops Respiratory: no wheezes, no rales, normal chest expansion, rhonchi Gastrointestinal: soft, non-tender, non-distended Extremities: no edema Neurological: CN's grossly intact, normal sensation to touch, no weakness, no focal deficits Musculoskeletal: generalized weakness, diffuse muscle atrophy Psychiatric: oriented to person, flat affect Hosp A/P (1) UTI (urinary tract infection) Status: Acute (2) History of CVA (cerebrovascular accident) Code(s): Z86.73 - PRSNL HX OF TIA (TIA), AND CEREB INFRC W/O RESID DEFICITS Status: Acute (3) ARNALDO (acute kidney injury) Code(s): N17.9 - ACUTE KIDNEY FAILURE, UNSPECIFIED Status: Acute (4) Dysphagia as late effect of cerebral aneurysm Code(s): I69.891 - DYSPHAGIA FOLLOWING OTHER CEREBROVASCULAR DISEASE Status: Acute (5) Shortness of breath Code(s): R06.02 - SHORTNESS OF BREATH Status: Acute (6) PEG tube malfunction Code(s): K94.23 - GASTROSTOMY MALFUNCTION Status: Acute - Plan Plan: Renal function now stabilized on IV fluids, if continues to downtrend will plan for D/c in the next 24 hours IV fluids for ARNALDO Confirmed with RN and dietitian that patient has been getting 200mL free water flush Q6 hours - though I&O only documented as 200mL for 24 hours De escilate broad spectrum ABX for sepsis, culture negative at 48 hours D/c vancomycin. No significant growth on cultures to date Continue Zon GI consultion, recommendations appreciated PEG tube now functional Resume diet and meds via PEG Continue home meds as able DVT PPX GI PPX
[2019-05-29 14:51] LABS: Anion Gap 12 mmol/L (10-20); BUN (Urea Nitrogen) 27 mg/dL (8.4-25.7); Calc. Creatinine Clearance 41 mL/min (70-130); Calcium 9.2 mg/dL (7.8-10.44); Carbon Dioxide 23 mmol/L (23-31); Chloride 110 mmol/L (98-107); Estimated GFR-MDRD 33; Glucose 105 mg/dL (80-115); Potassium 5.2 mmol/L (3.5-5.1); Sodium 140 mmol/L (136-145)
[2019-05-30 05:45] LABS: Hemoglobin 12.1 g/dL (14.0-18.0); Mean Corpuscular HGB CONC 33.9 g/dL (32.0-36.0); Mean Corpuscular Hemoglobin 32.3 pg (27.0-31.0); Mean Corpuscular Volume 95.1 fL (78.0-98.0); Mean Platelet Volume 10.9 fL (7.4-10.4); Platelet Count 123 thou/uL (130-400); Red Blood Cell (RBC) Count 3.75 mill/uL (4.70-6.10); White Blood Cell (WBC) Count 6.7 thou/uL (4.8-10.8)
[2019-05-30 06:03] LABS: Anion Gap 10 mmol/L (10-20); BUN (Urea Nitrogen) 25 mg/dL (8.4-25.7); Calc. Creatinine Clearance 42 mL/min (70-130); Calcium 8.8 mg/dL (7.8-10.44); Carbon Dioxide 24 mmol/L (23-31); Chloride 108 mmol/L (98-107); Estimated GFR-MDRD 34; Glucose 106 mg/dL (80-115); Potassium 4.1 mmol/L (3.5-5.1); Sodium 138 mmol/L (136-145)
[2019-05-30] MEDS: Piperacillin/Tazobactam 4.5 GM in Sodium Chloride 0.9% 100 ML IVPB SCH ×3 (06:04→11:16)
[2019-05-30] MEDS: Pantoprazole 40 MG GRANULES PACKET PER TUBE SCH (09:19)
[2019-05-30] MEDS: Saccharomyces boulardii 250 MG CAP PER TUBE SCH (09:20)
[2019-05-30] MEDS: levETIRAcetam 500 mg/5 ml Oral Solution PER TUBE SCH (09:20)
[2019-05-30] MEDS: Amlodipine 10 MG TAB PER TUBE SCH (09:20)
[2019-05-30] MEDS: Simethicone Chewable 80 MG TAB PER TUBE SCH (09:20)
[2019-05-30] MEDS: Metoprolol Tartrate 50 MG TAB PER TUBE SCH (09:20)
[2019-05-30] MEDS: Escitalopram Oxalate 20 mg Tablet PER TUBE SCH (09:20)
[2019-05-30] MEDS: Doxazosin Mesylate 1 MG TAB PER TUBE SCH (09:21)
[2019-05-30] MEDS: Multivits W-Minerals Liquid 15mL UDCUP PER TUBE SCH (09:26)
[2019-05-30 11:40] VITALS: BP 125/72; TEMP 97.7
--- NOTE | 2019-05-30 16:13 | DIS ---
DATE OF ADMISSION: 05/25/2019 DATE OF DISCHARGE: 05/30/2019 REASON FOR HOSPITALIZATION: Malfunctioning PEG tube and severe sepsis. SIGNIFICANT FINDINGS: The patient is found to be septic. PROCEDURES PERFORMED AND TREATMENTS RENDERED: The patient was placed on broad-spectrum antibiotics with good improvement of symptoms. The patient was seen by Gastroenterology, who addressed malfunctioning PEG tube. CONDITION ON DISCHARGE: Stable. SPECIFIC INSTRUCTIONS WITH PATIENT OR FAMILY: 1. The patient is to take all medications as directed. 2. The patient is to complete a full 7-day course of IV piperacillin/tazobactam/Zosyn to be completed on 06/01/2019. 3. The patient is to continue all home medications as directed, to be re- evaluated by admitting physician at assisted facility. 4. The patient changed from Glucerna to Nepro enteral feeding per recommendations of dietitian. DISCHARGE DIAGNOSES: 1. Acute urinary tract infection. 2. Malfunctioning percutaneous endoscopic gastrostomy tube. 3. Insulin-dependent diabetes mellitus. 4. Hypertension. 5. Hyperlipidemia. 6. History of cerebrovascular accident with residual right-sided deficits. 7. Dysphagia chronically with percutaneous endoscopic gastrostomy tube in place. 8. Gastroesophageal reflux disease. 9. Depression. 10. Seizure disorder. DISCHARGE MEDICATIONS: Please see full home medication list for details. HISTORY OF PRESENT ILLNESS/HOSPITAL COURSE: Mr. Cannon is a 68-year-old gentleman with past medical history of CVA with residual right-sided deficit, who is bedbound at baseline, who was transferred from assisted facility for malfunctioning PEG tube, found to be septic with urinary tract infection. The patient was initially transferred from [facility] for higher level of care. The patient was seen by Gastroenterology, please see full consultation note for details. Gastroenterology testing PEG tube and was able to get the PEG tube to functional status again. The patient was placed on broad-spectrum IV antibiotics or sepsis with WBC count of 15,000 and fever of 102 on arrival. The patient was treated for sepsis with good improvement of symptoms. On the day of discharge, the patient's WBC count is 6.7. The patient is afebrile. The patient's renal function did trend up with sepsis, however, remained stable with a new creatinine baseline at the level of 1.9. Dietitian consultation requested, please see full consultation and progress notes for details. Dietitian recommending changing the patient to Nepro to avoid renal complication. The patient recommended safe for discharge by all specialists on 05/30/2019. The patient recommended safer transfer back to assisted facility, where he is a chronic resident. The patient recommended to complete a full course of IV antibiotics, Zosyn, which will be completed on 06/01/2019. The patient to continue all other home medications as directed, to be re-evaluated by admitting physician. The patient recommended to return to acute care hospital immediately if signs or symptoms return, worsen, or any other new symptoms occur. Greater than 35 minutes spent with discharge planning, coordinating on this patient. Job ID: [id number] MTDD
== END 2019-05-30 12:38 | DRG 872 ==
LOC: ERS 11:24 → T4-A 13:27
PROVIDERS: ADMIT Internal Medicine; ATTEND Internal Medicine
DX: A41.9 Sepsis, unspecified organism (principal); K94.23 Gastrostomy malfunction; N39.0 Urinary tract infection, site not specified; I69.351 Hemiplegia and hemiparesis following cerebral infarction affecting right dominant side; N17.9 Acute kidney failure, unspecified; E87.2 Acidosis; R65.20 Severe sepsis without septic shock; Y83.3 Surgical operation with formation of external stoma as the cause of abnormal reaction of the patient, or of later complication, without mention of misadventure at the time of the procedure; I10 Essential (primary) hypertension; E78.5 Hyperlipidemia, unspecified; E11.9 Type 2 diabetes mellitus without complications; G40.909 Epilepsy, unspecified, not intractable, without status epilepticus; K21.9 Gastro-esophageal reflux disease without esophagitis; F32.9 Major depressive disorder, single episode, unspecified; J30.2 Other seasonal allergic rhinitis; N40.0 Benign prostatic hyperplasia without lower urinary tract symptoms; R13.10 Dysphagia, unspecified; Z88.8 Allergy status to other drugs, medicaments and biological substances; I69.391 Dysphagia following cerebral infarction; Z79.4 Long term (current) use of insulin
CPT/HCPCS: 36415; 36416; 71045; 74177; 80048; 80069; 80202; 83605; 85025; 85027; 87086; 94640; J1650; J1940; J1953; J1956; J2543; J3370; J3480; J3490; J7050; J7620; Q9966

== ENCOUNTER 2019-12-14 21:32 | Emergency (ER) | payer MEDICAID | END 2019-12-14 23:14 | LOC: ERS 21:32 | DX: Z43.1 Encounter for attention to gastrostomy (principal); F03.90 Unspecified dementia, unspecified severity, without behavioral disturbance, psychotic disturbance, mood disturbance, and anxiety; E11.9 Type 2 diabetes mellitus without complications; I10 Essential (primary) hypertension; K21.9 Gastro-esophageal reflux disease without esophagitis; D50.9 Iron deficiency anemia, unspecified; Z86.73 Personal history of transient ischemic attack (TIA), and cerebral infarction without residual deficits; G40.909 Epilepsy, unspecified, not intractable, without status epilepticus; J44.9 Chronic obstructive pulmonary disease, unspecified; F41.9 Anxiety disorder, unspecified; F32.9 Major depressive disorder, single episode, unspecified; Z87.891 Personal history of nicotine dependence; Z79.84 Long term (current) use of oral hypoglycemic drugs; Z79.899 Other long term (current) drug therapy | CPT/HCPCS: 43762; B4087 ==

== ENCOUNTER 2020-05-01 05:04 | Inpatient (IN) | payer MEDICARE, MEDICAID, OTHER ==
[2020-05-01 05:46] LABS: Bacteria/HPF None Seen HPF (None Seen); Bilirubin Negative (Negative); Blood, Urine Negative (Negative); Clarity Clear (Clear); Glucose, Urine (Dipstick) Normal (Negative); Ketone, Urine Negative (Negative); Leukocyte Negative Leu/uL (Negative); Nitrite Negative (Negative); Protein, Urine (Dipstick) 30 mg/dL (Neg-Trace); RBC/HPF 0-3 HPF (0-3); Specific Gravity, Urine 1.027 (1.002-1.036); Squamous Epithelial None Seen HPF (0-3); Urobilinogen Normal mg/dL (Less than 2); WBC/HPF 0-3 HPF (0-3)
[2020-05-01] MEDS ORDERED: Acetaminophen 500 MG TAB ONE (05:50)
[2020-05-01 05:59] LABS: Hemoglobin 13.8 g/dL (14.0-18.0); Mean Corpuscular HGB CONC 32.5 g/dL (32.0-36.0); Mean Corpuscular Hemoglobin 30.2 pg (27.0-31.0); Mean Corpuscular Volume 92.9 fL (78.0-98.0); Mean Platelet Volume 11.8 fL (7.4-10.4); Platelet Count 156 thou/uL (130-400); Red Blood Cell (RBC) Count 4.56 mill/uL (4.70-6.10); White Blood Cell (WBC) Count 16.4 thou/uL (4.8-10.8)
[2020-05-01 06:07] LABS: ALT (SGPT) 20 U/L (8-55); AST (SGOT) 16 U/L (5-34); Alkaline Phosphatase 102 U/L (40-110); Anion Gap 16 mmol/L (10-20); BUN (Urea Nitrogen) 41 mg/dL (8.4-25.7); Bilirubin, Total 0.5 mg/dL (0.2-1.2); Calc. Creatinine Clearance 0 mL/min (70-130); Calcium 9.8 mg/dL (7.8-10.44); Carbon Dioxide 28 mmol/L (23-31); Chloride 101 mmol/L (98-107); Estimated GFR-MDRD 79; Globulin 3.7 g/dL (2.4-3.5); Glucose 140 mg/dL (80-115); Potassium 3.8 mmol/L (3.5-5.1); Protein, Total 7.7 g/dL (5.8-8.1); Sodium 141 mmol/L (136-145)
[2020-05-01] MEDS ORDERED: Vancomycin 1 GM/200 ML BAG ONE (06:07)
[2020-05-01] MEDS ORDERED: Cefepime 2 GM VIAL ONE (06:07)
[2020-05-01 06:18] LABS: Band 5 % (5-11); Lymphocytes 3 % (21-51); MDiff Complete? YES; Monocytes 7 % (0-10); Neutrophil 85 % (42-75); Platelet Morphology Comment Appears Adequate; RBC Morphology Normal
[2020-05-01 07:29] LABS: SARS-CoV-2 NAA Rapid Test Not Detected (NotDetected)
--- NOTE | 2020-05-01 07:43 | RAD ---
EXAM: Single view of the chest HISTORY: Cough and upper GI bleed COMPARISON: 05/25/2019 FINDINGS: Single view of the chest shows a normal sized cardiomediastinal silhouette. There is no samantha dence of consolidation, mass, or pleural effusion. Degenerative changes are seen in the spine. IMPRESSION: No evidence of acute cardiopulmonary disease
[2020-05-01 08:52] LABS: Lactic Acid 3.9 mmol/L (0.5-2.2)
[2020-05-01 10:23] VITALS: BMI 23.5
[2020-05-01] MEDS ORDERED: Acetaminophen 325 MG TAB PO PRN (11:09)
[2020-05-01] MEDS ORDERED: Pantoprazole 80 MG in Sodium Chloride 0.9% 100 ML IVP SCH (11:15)
[2020-05-01 12:12] LABS: Hemoglobin 12.1 g/dL (14.0-18.0)
[2020-05-01] MEDS: Sodium Chloride 0.9% 1,000 ML IV SCH ×2 (13:23→20:16)
[2020-05-01] MEDS: Cefepime 2 GM in Sodium Chloride 0.9% 100 ML IVPB SCH ×2 (13:23→22:09)
--- NOTE | 2020-05-01 13:27 | HP ---
PRIMARY CARE PHYSICIAN: Dr. Garzon. CHIEF COMPLAINT: Vomiting. HISTORY OF PRESENT ILLNESS: The patient is a 69-year-old male with past medical history significant for diabetes type 2, GERD, ischemic CVA, and dementia. He presented to the ER today for two episodes of coffee-ground emesis. The vomiting episodes were last night at 10 o'clock and then just prior to arrival in the ER this morning. No vomiting per EMS, just dry heaving, they gave him 12.[address] into the hospital. He does have a PEG tube site and there was some coffee-ground drainage from the site. Of note, he also was 90% on room air when EMS got him when he is normally not in need of O2. He is unable to provide any further history due to his baseline dementia. When interviewed, he states that he feels fine. No cough noted, but it was charted in the ER that he had a significant thick cough with weak effort. He denies any pain at this time. He does confirm that he vomited, but states he feels good now. Today in the ER, they completed lab work , urinalysis, COVID swab, and a chest x-ray. PAST MEDICAL HISTORY: Diabetes type 2, GERD, iron deficiency anemia, ischemic CVA, epilepsy, dementia, COPD. 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 ALLERGIES: CODEINE. MEDICATIONS: 1. Metformin 1000 mg q.a.m. 2. Keppra 1000 mg twice a day. 3. Simethicone 80 mg twice a day. 4. Florastor 250 mg daily. 5. Ranitidine 150 mg daily. 6. Potassium chloride 20 mEq daily. 7. MiraLAX 17 g daily. 8. Multivitamin daily. 9. Metoprolol 25 mg twice a day. 10. Nexium 40 mg daily. 11. Lexapro 20 mg daily. 12. Cardura 1 mg daily. 13. Norvasc 10 mg daily. SOCIAL HISTORY: The patient lives in [facility] as a resident. He is a former tobacco user. He quit about 2 years ago. No alcohol or illicit drug use. FAMILY HISTORY: Noncontributory to this case. REVIEW OF SYSTEMS: All other review of systems negative unless noted in the HPI. PHYSICAL EXAMINATION: VITAL SIGNS: Temperature 98.2, pulse 107, respiratory rate 20, 100% on 2 L, 136 /82 for blood pressure. GENERAL: The patient appears nontoxic and pain-free. HEENT: Head; normocephalic, atraumatic. Eyes; extraocular muscles intact. PERRLA. ENT; mucous membranes moist. RESPIRATORY: Clear to auscultation bilaterally. Normal chest expansion. No rhonchi. No wheezes. No rales. No cough. CARDIOVASCULAR: Tachycardic. Regular rate and rhythm. No murmurs. No gallops. No rubs. ABDOMEN: PEG tube to left upper quadrant. Large parastomal hernia, soft and easily reducible. No tenderness. Bowel sounds normal. EXTREMITIES: Posterior tibial pulses intact. Pedal pulse intact. No edema. No cyanosis. NEURO: The patient is awake and responsive, oriented to person only. SKIN: Warm, dry, and normal. LABORATORY DATA: COVID swab negative. WBC 16.4, RBCs 4.56, hemoglobin 13.8. Next hemoglobin was 12.1. Initial hematocrit of 42.4, second one 35.6. Sodium 141, BUN elevated at 41, glucose 140. Lactic acid 4.8. Initial troponin negative. BNP 43.2. His initial lactic acid 4.8, next one was 3.9. Urine does not show signs of acute urinary infection. EKG showed sinus tach 116 beats per minute. Chest x- ray, no evidence of acute cardiopulmonary disease. IMPRESSION AND PLAN: We will consult GI for presumed upper GI bleed. The patient's hemoglobin and hematocrit both decreased since admission and we will continue to trend them along with his vital signs. We will continue his IV antibiotics as the patient was septic and hypoxic upon arrival to the ER. The patient will be started on a Protonix drip for the GI bleed. GI prophylaxis will be covered with him on Protonix drip. VTE prophylaxis will be SCDs as we are holding anticoagulants due to the possible bleed. Code status, full. We will obtain next-of-kin information from the [facility]. The patient has been discussed with Dr. Justice. Job ID: [id number] [facility]
[2020-05-01 17:43] LABS: Hemoglobin 11.2 g/dL (14.0-18.0)
--- NOTE | 2020-05-01 19:17 | CON ---
DATE OF CONSULTATION: 05/01/2020 CHIEF COMPLAINT: Coffee-ground emesis. HISTORY OF PRESENT ILLNESS: Mr. Cannon is a 69-year-old man, who is senior care bound and has a gastrostomy tube in place. He was sent to the emergency room from the senior care because he vomited last night and then was also noted to have some coffee-ground drainage from his gastrostomy site. He has had no blood in the stool. No known diarrhea or constipation. The patient is not significantly verbally communicative, is unable to contribute to his history. He is able to state that he has no pain and feels fine. He has had a gastrostomy tube in place for years. History is primarily from the chart. PAST MEDICAL HISTORY: Diabetes mellitus type 2, gastroesophageal reflux disease, stroke, dementia, COPD, and anemia. 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 FAMILY HISTORY: Negative for GI malignancy. SOCIAL HISTORY: The patient lives at [facility]. Former smoker. No drugs or alcohol. ALLERGIES: CODEINE. MEDICATIONS: Prior to admission; 1. Metformin. 2. Keppra. 3. Simethicone. 4. Florastor. 5. Ranitidine. 6. Potassium chloride. 7. MiraLAX. 8. Multiple vitamin. 9. Metoprolol. 10. Nexium. 11. Lexapro. 12. Cardura. 13. Norvasc. REVIEW OF SYSTEMS: Negative x10 systems reviewed except extremely limited based on the patient's ability to communicate. PHYSICAL EXAMINATION: VITAL SIGNS: Temperature is 98.5, pulse 96, blood pressure 122/77. GENERAL: He is in no acute distress. He is awake and responds to some questions. NECK: He has no cervical or supraclavicular lymphadenopathy. HEENT: Eyes have no scleral icterus. Oropharynx has poor dentition. LUNGS: Clear to auscultation bilaterally. HEART: Regular rate and rhythm without murmur. ABDOMEN: Soft, nontender, and nondistended. Bowel sounds are present. He has an incisional hernia in the epigastric region. EXTREMITIES: Have no lower extremity edema. His gastrostomy tube appears healthy with some granulation tissue around the gastrostomy site. I opened his gastrostomy tube, and thin brown liquid about 300 mL drained out. There was no blood in the liquid. No typical coffee-ground material. RECTAL: Performed and reveals light brown to yellowish stool again without melena or evidence of GI bleed. LABORATORY DATA: Creatinine 0.95, BUN 41, bilirubin 0.5, AST 16, ALT 20, and alkaline phosphatase 102, albumin 4.0. COVID test was negative. White blood cell count 16.4, hemoglobin was 13.8 initially this morning and 12.1 on recheck after hydration, and platelets 156. IMPRESSION: 1. Gastrointestinal bleed. There was a question of coffee-ground material draining from his gastrostomy tube earlier this morning. Currently does have brownish fluid that drains from his tube, but no obvious coffee-grounds and no red blood. Rectal exam reveals no melena or blood in the rectal vault. He just has light brown to yellowish stool there. His hemoglobin is 12.1, which is at his baseline from previous draws. He does not appear to have a significant bleed at this point; however, his BUN is elevated, and if he passed a coffee-ground material earlier, he could have had some gastritis and/or peptic ulcer bleed. At this point, I would put him on a proton pump inhibitor IV daily and recheck his hemoglobin tomorrow. As he does not appear to have any active bleeding now, I would hold off endoscopy. 2. Leukocytosis and dehydration on presentation. He is on broad-spectrum antibiotics now. 3. Question of mild ileus. He did have 300 mL of fluid in his stomach that drained out from the gastrostomy tube. He had an episode of vomiting this morning. This can be managed symptomatically for now, and he should continue to receive IV fluids. RECOMMENDATIONS: Proton pump inhibitor. Job ID: [id number]
[2020-05-01] MEDS: Vancomycin 1 GM in Premix Bag 1 BAG IVPB SCH (20:15)
[2020-05-01] MEDS: Pantoprazole 40 MG VIAL IVP SCH (20:16)
[2020-05-01 23:45] LABS: Hemoglobin 11.1 g/dL (14.0-18.0)
[2020-05-02] MEDS: Sodium Chloride 0.9% 1,000 ML IV SCH ×4 (05:18→21:59)
[2020-05-02] MEDS: Cefepime 2 GM in Sodium Chloride 0.9% 100 ML IVPB SCH ×3 (05:59→22:00)
[2020-05-02 06:45] LABS: Mean Corpuscular HGB CONC 33.3 g/dL (32.0-36.0); Mean Corpuscular Hemoglobin 31.8 pg (27.0-31.0); Mean Corpuscular Volume 95.5 fL (78.0-98.0); Red Blood Cell (RBC) Count 3.77 mill/uL (4.70-6.10)
[2020-05-02 06:55] LABS: Anion Gap 10 mmol/L (10-20); BUN (Urea Nitrogen) 25 mg/dL (8.4-25.7); Calc. Creatinine Clearance 96 mL/min (70-130); Calcium 8.8 mg/dL (7.8-10.44); Carbon Dioxide 26 mmol/L (23-31); Chloride 107 mmol/L (98-107); Estimated GFR-MDRD Greater than 90; Glucose 84 mg/dL (80-115); Potassium 3.6 mmol/L (3.5-5.1); Sodium 139 mmol/L (136-145)
[2020-05-02 07:20] LABS: #Eosinphils 0.2 thou/uL (0.0-0.7); #Monocytes 0.5 thou/uL (0.11-0.59); #Neutrophils 7.2 thou/uL (1.40-6.50); %Basophils 0.3 % (0.0-1.0); %Eosinophils 2.4 % (0.0-10.0); %Lymphocytes 11.1 % (21.0-51.0); %Neutrophils 80.1 % (42.0-75.0); Mean Platelet Volume 11.5 fL (7.4-10.4); Platelet Count 108 thou/uL (130-400); Platelet Morphology Comment Appears Decreased; RBC Morphology Normal
[2020-05-02 07:28] LABS: Band 2 % (5-11); Lymphocytes 12 % (21-51); Monocytes 4 % (0-10); Neutrophil 82 % (42-75)
[2020-05-02 07:30] LABS: MDiff Complete? YES
[2020-05-02] MEDS: Pantoprazole 40 MG VIAL IVP SCH ×2 (08:16→20:40)
[2020-05-02] MEDS ORDERED: Prevnar 13-Val Conj/PF 0.5 ML SYRINGE IM ONE (09:00)
[2020-05-02] MEDS: Vancomycin 1 GM in Premix Bag 1 BAG IVPB SCH ×2 (09:50→20:35)
--- NOTE | 2020-05-02 12:24 | PRG ---
DATE OF SERVICE: 05/02/2020 SUBJECTIVE: Mr. Cannon has had no further vomiting or signs of overt bleeding. No bowel movement reported. OBJECTIVE: VITAL SIGNS: Temperature 98.0, pulse 86, blood pressure 133/77. GENERAL: He is in no acute distress. He is able to tell me that he has no pain or discomfort. LUNGS: Clear to auscultation bilaterally. HEART: Regular rate and rhythm without murmur. ABDOMEN: Soft. Bowel sounds are active. Has mild abdominal distention. EXTREMITIES: Have no lower extremity edema. LABORATORY DATA: Hemoglobin is 12.0. IMPRESSION: Reported hematemesis with coffee-grounds emesis. No signs of ongoing overt bleeding now. His rectal exam yesterday was negative for melena. He had no red blood in his effluent from his gastrostomy yesterday. We will restart his tube feeds today. If he has recurrent vomiting, then a small-bowel follow-through could be considered. RECOMMENDATIONS: 1. Restart tube feeds today. If he tolerates these then he can discharge home. 2. If he vomits his tube feeds again, then obtain abdominal x-rays and if those are not helpful, then a small-bowel follow-through could be considered as a next step. Job ID: [id number]
--- NOTE | 2020-05-02 14:09 | PDOC.HOSPP ---
- Subjective Encounter Date: 05/02/20 Encounter Time: 14:07 Subjective: Patient minimally verbal, unable to answer open ended questions but follows comands and answers yes & no. Denies any pain. Denies any n/v. Confirmed with RN, patient has not had any vomiting yet since starting tube feedings. He does have abdominal bloating which is reportedly stable until tube feedings started. Now seems to be more distended. He has had urine output as well. No bowel movement since admission. Seen by Dr. Quiñonez today who advised d/c if tolerated feedings. However if he developed vomiting will need small bowel FT. - Objective Vital Signs & Weight: Vital Signs (12 hours) Temp Pulse Resp BP Pulse Ox 05/02/20 12:00 98.6 F 80 18 122/72 98 05/02/20 08:01 98.0 F 86 18 133/77 95 05/02/20 02:30 99 Weight Admit Weight 159 lb 3.2 oz Weight 159 lb 3.2 oz I&O: 05/01/20 05/02/20 05/03/20 06:59 06:59 06:59 Intake Total 2176 Balance 2176 Result Diagrams: 05/02/20 06:00 05/02/20 06:00 Additional Labs: Accuchecks 05/02/20 05/02/20 05/01/20 11:22 04:53 20:22 POC Glucose 105 92 116 H 05/01/20 16:34 POC Glucose 115 H Radiology Reviewed by me: Yes EKG Reviewed by me: Yes Hospitalist ROS - Review of Systems ROS unobtainable: due to mental status - Medication Medications: Active Medications Generic Name Dose Route Start Last Admin Trade Name Freq PRN Reason Stop Dose Admin Cefepime HCl 2 gm/ Sodium 100 mls @ 200 mls/hr 05/01/20 14:00 05/02/20 05:59 Chloride IVPB 100 mls Q8HR ZHANG Administration Vancomycin HCl 1 gm/ Device 200 mls @ 200 mls/hr 05/01/20 21:00 05/02/20 09: 50 IVPB 200 mls Q12HR ZHANG Administration Levofloxacin 750 mg/ Device 150 mls @ 100 mls/hr 05/02/20 08:00 05/02/20 08: 04 IVPB 150 mls 0800 ZHANG Administration Pantoprazole Sodium 40 mg 05/01/20 21:00 05/02/20 08:16 Protonix IVP 40 mg Q12HR ZHANG Administration Sodium Chloride 10 ml 05/01/20 21:00 05/02/20 08:22 Flush - Normal Saline IVF 10 ml Q12HR ZHANG Administration - Exam General Appearance: NAD, awake alert Eye: PERRL ENT: dry oral mucosa Neck: supple, no lymphadenopathy Heart: RRR, no murmur, no gallops, no rubs, normal peripheral pulses Respiratory: CTAB, no wheezes, no rales, no ronchi, normal chest expansion Gastrointestinal: soft, normal bowel sounds, tender to palpation (Winced on palpation of suprapubic region which feels semi-firm), distended Gastrointestinal - other findings: ventral hernia, also distended but reducible with no tenderness noted Extremities: no edema Skin: normal turgor, no lesions, no rashes Psychiatric: flat affect Hosp A/P (1) GI bleed Code(s): K92.2 - GASTROINTESTINAL HEMORRHAGE, UNSPECIFIED Status: Acute Plan: H/H stable, continue to monitor. Continue PPI IV. Management as per GI team. Seen by Dr. Quiñonez today. (2) Abdominal distention Code(s): R14.0 - ABDOMINAL DISTENSION (GASEOUS) Status: Acute Plan: Worse since starting tube feedings but patient without vomiting. Tube feedings stopped and KUB ordered. Obtain bladder scan to ensure patient is not retaining. (3) Leukocytosis Code(s): D72.829 - ELEVATED WHITE BLOOD CELL COUNT, UNSPECIFIED Status: Resolved (4) Dehydration Code(s): E86.0 - DEHYDRATION Status: Acute Plan: Continue IV fluids. Monitor renal function. (5) Dysphagia as late effect of cerebral aneurysm Code(s): I69.891 - DYSPHAGIA FOLLOWING OTHER CEREBROVASCULAR DISEASE Status: Chronic (6) History of CVA (cerebrovascular accident) Code(s): Z86.73 - PRSNL HX OF TIA (TIA), AND CEREB INFRC W/O RESID DEFICITS Status: Chronic
--- NOTE | 2020-05-02 14:32 | RAD ---
EXAM: Single view of the abdomen HISTORY: Abdominal distention COMPARISON: 05/25/2019 FINDINGS: Single view of the abdomen shows a nonspecific, nonobstructive bowel gas pattern. Air is se en throughout the colon to the level the rectum. There appears to be a gastrostomy tube overlying the stomach. No suspicious calcifications are seen. Degenerative changes are seen in the spine. IMPRESSION: Unremarkable exam
[2020-05-02 19:54] LABS: Vancomycin, Trough 17.7 ug/mL
[2020-05-03] MEDS: Sodium Chloride 0.9% 1,000 ML IV SCH ×3 (03:11→21:56)
[2020-05-03] MEDS: Cefepime 2 GM in Sodium Chloride 0.9% 100 ML IVPB SCH (05:23)
[2020-05-03 06:49] LABS: #Basophils 0.1 thou/uL (0.0-0.2); #Eosinphils 0.2 thou/uL (0.0-0.7); #Lymphocytes 0.8 thou/uL (1.20-3.40); #Monocytes 0.5 thou/uL (0.11-0.59); #Neutrophils 4.5 thou/uL (1.40-6.50); %Basophils 1.1 % (0.0-1.0); %Eosinophils 2.8 % (0.0-10.0); %Lymphocytes 12.7 % (21.0-51.0); %Monocytes 8.3 % (0.0-10.0); %Neutrophils 75.1 % (42.0-75.0); Hemoglobin 12.3 g/dL (14.0-18.0); Mean Corpuscular HGB CONC 34.1 g/dL (32.0-36.0); Mean Corpuscular Hemoglobin 31.2 pg (27.0-31.0); Mean Corpuscular Volume 91.7 fL (78.0-98.0); Mean Platelet Volume 11.9 fL (7.4-10.4); Platelet Count 116 thou/uL (130-400); RBC Distribution Width 11.7 % (11.5-14.5); Red Blood Cell (RBC) Count 3.93 mill/uL (4.70-6.10)
[2020-05-03 06:50] LABS: Anion Gap 9 mmol/L (10-20); BUN (Urea Nitrogen) 14 mg/dL (8.4-25.7); Calc. Creatinine Clearance 90 mL/min (70-130); Carbon Dioxide 30 mmol/L (23-31); Chloride 104 mmol/L (98-107); Estimated GFR-MDRD Greater than 90; Glucose 91 mg/dL (80-115); Potassium 3.5 mmol/L (3.5-5.1); Sodium 139 mmol/L (136-145)
[2020-05-03] MEDS: Pantoprazole 40 MG VIAL IVP SCH ×2 (07:53→21:55)
[2020-05-03] MEDS: Vancomycin 1 GM in Premix Bag 1 BAG IVPB SCH (09:30)
[2020-05-03] MEDS ORDERED: Electrolyte Replacement Protocol FS PRN (09:30)
[2020-05-03] MEDS ORDERED: Electrolyte Replacement Protoc 1 EACH EACH FS SCH (09:30)
[2020-05-03] MEDS ORDERED: levETIRAcetam 500 mg/5 ml Oral Solution PER TUBE SCH (10:15)
[2020-05-03] MEDS ORDERED: Potassium Chloride 40 MEQ in Sodium Chloride 0.9% 250 ML 250 ML IVPB SCH (10:45)
--- NOTE | 2020-05-03 17:58 | PDOC.HOSPP ---
- Subjective Encounter Date: 05/03/20 Encounter Time: 10:00 Subjective: overnight, feeding stopped due to abdominal distention but no reported nausea / vomiting. This morning, patient feeling well. Difficult to understand the patient but seems to be complaining of mild abdominal pain. Feedings restarted, nurse requested to check residual and increase as per environmental studies professor recs, stop only in case of residuals = rate x 2 or vomiting. - Objective Vital Signs & Weight: Vital Signs (12 hours) Temp Pulse Resp BP Pulse Ox 05/03/20 08:00 97 05/03/20 07:18 98.9 F 97 20 131/91 H 97 Weight Admit Weight 159 lb 3.2 oz Weight 159 lb 3.2 oz I&O: 05/02/20 05/03/20 05/04/20 06:59 06:59 06:59 Intake Total 2176 950 255 Output Total 1850 Balance 2174 310 -5743 Result Diagrams: 05/03/20 06:01 05/03/20 06:01 Additional Labs: Accuchecks 05/03/20 05/03/20 05/03/20 16:09 11:16 04:13 POC Glucose 114 H 122 H 95 05/02/20 19:35 POC Glucose 98 Hospitalist ROS - Review of Systems Constitutional: denies: fever Respiratory: denies: cough, shortness of breath Cardiovascular: denies: chest pain Gastrointestinal: reports: abdominal pain. denies: nausea, vomiting, diarrhea, constipation - Medication Medications: Active Medications Generic Name Dose Route Start Last Admin Trade Name Freq PRN Reason Stop Dose Admin Sodium Chloride 1,000 mls @ 75 mls/hr 05/02/20 14:02 05/03/20 17:55 Normal Saline 0.9% IV Not Given .[id number] ZHANG Pantoprazole Sodium 40 mg 05/01/20 21:00 05/03/20 07:53 Protonix IVP 40 mg Q12HR ZHANG Administration Sodium Chloride 10 ml 05/01/20 21:00 05/03/20 07:56 Flush - Normal Saline IVF 10 ml Q12HR ZHANG Administration - Exam General Appearance: NAD, awake alert Neck: no JVD Heart: RRR, no murmur, no gallops, no rubs Respiratory: CTAB, no wheezes, no rales, no ronchi Gastrointestinal: soft, non-tender, non-distended, normal bowel sounds Gastrointestinal - other findings: periumbilical hernia with audible bowel sounds, easily reducible Extremities: no edema Psychiatric: normal affect, normal behavior, A&O x 3 Hosp A/P - Plan #dysphagia #cerebal aneurysm restarted tube feeds; as of time of writing this note, 40cc/hr with no residuals , well tolerated -increase up to 60cc/hr; if residuals > 120cc or vomiting, hold feeds #urinary retention -straight cath yeilded 700cc urine -likely due to holding doxazosin -lyles placed -doxazosin restarted -lyles trial prior to discharge ELOS: 1 night if tolerating tube feeds
--- NOTE | 2020-05-03 18:48 | PRG ---
DATE OF SERVICE: 05/03/2020 SUBJECTIVE: Mr. Cannon is awake and reports no abdominal pain. Nursing states that his abdomen became more distended after starting tube feeds yesterday, but he had no residuals in his stomach. Tube feeds were held, but then today, after nursing palpated his abdomen, they recognized that his bladder was distended and he had a Godinez catheter placed with immediate return of 700 mL of urine. Since then, his feeds have been restarted and he is tolerating those again well without residuals. OBJECTIVE: VITAL SIGNS: Temperature 98.9, pulse 97, blood pressure 131/91. LUNGS: Clear to auscultation bilaterally. HEART: Regular rate and rhythm without murmur. ABDOMEN: Soft, nondistended. He has a midline ventral incisional hernia, which is reducible. EXTREMITIES: No lower extremity edema. IMPRESSION: 1. Gastrointestinal bleed, resolved. There was a question of coffee-ground emesis on presentation, but no further evidence of overt bleeding and his hemoglobin is stable. 2. Nausea and vomiting. Again, these are resolved. He is tolerating tube feeds with minimal residuals now. 3. Bladder distention, improved, status post Godinez catheter placement. RECOMMENDATIONS: 1. Continue tube feeds. 2. I will sign off for now. Please call if GI can be of assistance. Job ID: [id number]
[2020-05-04 06:39] LABS: Anion Gap 8 mmol/L (10-20); BUN (Urea Nitrogen) 13 mg/dL (8.4-25.7); Calc. Creatinine Clearance 95 mL/min (70-130); Calcium 8.6 mg/dL (7.8-10.44); Carbon Dioxide 31 mmol/L (23-31); Chloride 104 mmol/L (98-107); Estimated GFR-MDRD Greater than 90; Glucose 143 mg/dL (80-115); Magnesium 1.7 mg/dL (1.6-2.6); Potassium 3.4 mmol/L (3.5-5.1); Sodium 140 mmol/L (136-145)
[2020-05-04] MEDS ORDERED: Magnesium 2 GM/50 ML 2 GM in Premix Bag 1 BAG IVPB SCH ×2 (07:00→08:45)
[2020-05-04] MEDS ORDERED: Potassium Chloride 40 MEQ in Sodium Chloride 0.9% 250 ML 250 ML IVPB SCH (07:00)
[2020-05-04 08:35] LABS: #Eosinphils 0.2 thou/uL (0.0-0.7); #Lymphocytes 0.7 thou/uL (1.20-3.40); #Monocytes 0.5 thou/uL (0.11-0.59); #Neutrophils 3.4 thou/uL (1.40-6.50); %Basophils 0.3 % (0.0-1.0); %Eosinophils 4.8 % (0.0-10.0); %Lymphocytes 15.3 % (21.0-51.0); %Monocytes 10.1 % (0.0-10.0); %Neutrophils 69.5 % (42.0-75.0); Hemoglobin 11.1 g/dL (14.0-18.0); Large Platelets SLIGHT; MDiff Complete? YES; Mean Corpuscular HGB CONC 33.7 g/dL (32.0-36.0); Mean Corpuscular Hemoglobin 31.2 pg (27.0-31.0); Mean Corpuscular Volume 92.8 fL (78.0-98.0); Mean Platelet Volume 12.2 fL (7.4-10.4); Platelet Count 125 thou/uL (130-400); Platelet Morphology Comment Appears Decreased; RBC Distribution Width 11.9 % (11.5-14.5); Red Blood Cell (RBC) Count 3.57 mill/uL (4.70-6.10); White Blood Cell (WBC) Count 4.8 thou/uL (4.8-10.8)
[2020-05-04] MEDS: metFORMIN 500 MG TAB PER TUBE SCH (09:07)
[2020-05-04] MEDS: Escitalopram Oxalate 20 mg Tablet PER TUBE SCH (09:07)
[2020-05-04] MEDS: Docusate Sodium 100 MG/10 ML UDCUP PER TUBE SCH (09:07)
[2020-05-04] MEDS: Pantoprazole 40 MG VIAL IVP SCH ×2 (09:08→21:27)
[2020-05-04] MEDS: levETIRAcetam 500 mg/5 ml Oral Solution PER TUBE SCH (09:08)
[2020-05-04] MEDS: Doxazosin Mesylate 1 MG TAB PER TUBE SCH (09:08)
[2020-05-04] MEDS: Sodium Chloride 0.9% 1,000 ML IV SCH (09:09)
[2020-05-04 13:07] LABS: Potassium 3.8 mmol/L (3.5-5.1)
--- NOTE | 2020-05-04 17:00 | PDOC.HOSPP ---
- Subjective Encounter Date: 05/04/20 Encounter Time: 09:00 Subjective: no overnight events. tolerated continuous feeds well. Will attempt to transition to bolus feeds. On attempt to ROS, winces face but doesn't verbally explain - Objective Vital Signs & Weight: Vital Signs (12 hours) Temp Pulse Resp BP Pulse Ox 05/04/20 16:40 98.4 F 87 20 109/70 98 05/04/20 12:20 99.0 F 87 20 126/82 18 L 05/04/20 08:00 99 05/04/20 07:36 98.6 F 96 18 159/92 H 99 Weight Admit Weight 159 lb 3.2 oz Weight 159 lb 3.2 oz I&O: 05/03/20 05/04/20 05/05/20 06:59 06:59 06:59 Intake Total 950 2505 310 Output Total 2625 Balance 950 -120 310 Result Diagrams: 05/04/20 05:39 05/04/20 12:27 Additional Labs: Accuchecks 05/04/20 05/04/20 05/03/20 11:48 05:59 20:26 POC Glucose 129 H 151 H 135 H Hospitalist ROS - Review of Systems ROS unobtainable: due to mental status (not verbal) - Medication Medications: Active Medications Generic Name Dose Route Start Last Admin Trade Name Jarvisq PRN Reason Stop Dose Admin Docusate Sodium 100 mg 05/04/20 09:00 05/04/20 09:07 Colace Liquid PER TUBE 100 mg DAILY ZHANG Administration Doxazosin Mesylate 1 mg 05/04/20 09:00 05/04/20 09:08 Cardura PER TUBE 1 mg DAILY ZHANG Administration Escitalopram Oxalate 10 mg 05/04/20 09:00 05/04/20 09:07 Lexapro PER TUBE 10 mg DAILY ZHANG Administration Sodium Chloride 1,000 mls @ 75 mls/hr 05/02/20 14:02 05/04/20 09:09 Normal Saline 0.9% IV 1,000 mls .[id number] ZHANG Administration Levetiracetam 1,000 mg 05/04/20 09:00 05/04/20 09:08 Keppra Oral Solution PER TUBE 1,000 mg DAILY ZHANG Administration Metformin HCl 1,000 mg 05/04/20 08:00 05/04/20 09:07 Glucophage PER TUBE 1,000 mg QAM-WM ZHANG Administration Pantoprazole Sodium 40 mg 05/01/20 21:00 05/04/20 09:08 Protonix IVP 40 mg Q12HR ZHANG Administration Sodium Chloride 10 ml 05/01/20 21:00 05/04/20 09:09 Flush - Normal Saline IVF 10 ml Q12HR ZHANG Administration - Exam General Appearance: NAD, awake alert Neck: no JVD Heart: RRR, no murmur, no gallops, no rubs Respiratory: CTAB, no wheezes, no rales, no ronchi Gastrointestinal: soft, non-tender, non-distended, normal bowel sounds Gastrointestinal - other findings: periumbilical hernia easily reducible Extremities: no edema Hosp A/P - Plan #dysphagia #cerebal aneurysm restarted tube feeds; as of time of writing this note, 40cc/hr with no residuals , well tolerated well tolerated tube feeds at 65cc/hr with no residuals -attempt to transition to bolus #urinary retention -straight cath yeilded 700cc urine -likely due to holding doxazosin -lyles trial -doxazosin restarted ELOS: 1 night
[2020-05-05 06:01] LABS: #Eosinphils 0.4 thou/uL (0.0-0.7); #Lymphocytes 0.8 thou/uL (1.20-3.40); #Monocytes 0.2 thou/uL (0.11-0.59); #Neutrophils 3.7 thou/uL (1.40-6.50); %Basophils 0.4 % (0.0-1.0); %Eosinophils 7.3 % (0.0-10.0); %Lymphocytes 15.4 % (21.0-51.0); %Monocytes 4.7 % (0.0-10.0); %Neutrophils 72.3 % (42.0-75.0); Hemoglobin 11.7 g/dL (14.0-18.0); Mean Corpuscular HGB CONC 34.2 g/dL (32.0-36.0); Mean Corpuscular Hemoglobin 32.2 pg (27.0-31.0); Mean Corpuscular Volume 94.2 fL (78.0-98.0); Mean Platelet Volume 11.4 fL (7.4-10.4); Platelet Count 124 thou/uL (130-400); RBC Distribution Width 12.1 % (11.5-14.5); Red Blood Cell (RBC) Count 3.62 mill/uL (4.70-6.10); White Blood Cell (WBC) Count 5.1 thou/uL (4.8-10.8)
[2020-05-05 06:19] LABS: Anion Gap 9 mmol/L (10-20); BUN (Urea Nitrogen) 17 mg/dL (8.4-25.7); Calc. Creatinine Clearance 102 mL/min (70-130); Calcium 8.7 mg/dL (7.8-10.44); Carbon Dioxide 31 mmol/L (23-31); Chloride 103 mmol/L (98-107); Estimated GFR-MDRD Greater than 90; Glucose 90 mg/dL (80-115); Potassium 3.7 mmol/L (3.5-5.1); Sodium 139 mmol/L (136-145)
[2020-05-05] MEDS ORDERED: Magnesium 2 GM/50 ML 2 GM in Premix Bag 1 BAG IVPB SCH (06:30)
[2020-05-05 07:42] VITALS: TEMP 98.6
[2020-05-05] MEDS: Escitalopram Oxalate 20 mg Tablet PER TUBE SCH (09:12)
[2020-05-05] MEDS: metFORMIN 500 MG TAB PER TUBE SCH (09:13)
[2020-05-05] MEDS: levETIRAcetam 500 mg/5 ml Oral Solution PER TUBE SCH (09:14)
[2020-05-05] MEDS: Docusate Sodium 100 MG/10 ML UDCUP PER TUBE SCH (09:14)
[2020-05-05] MEDS: Doxazosin Mesylate 1 MG TAB PER TUBE SCH (09:15)
[2020-05-05] MEDS: Pantoprazole 40 MG VIAL IVP SCH (09:16)
--- NOTE | 2020-05-05 15:49 | PQF ---
Q55 2019 [facility] Updated: CLINICAL DOCUMENTATION CLARIFICATION FORM: Patient Name: JACI GENTILE Date of : 1950 Account: [id number] Admit Date: 05/01/2020 Facility: [facility] Dear Dr. Han Date 05/05/20 Please exercise your independent, professional judgment in responding to the clarification form. Clinical indicators are provided on the bottom of this form for your review. Please check appropriate box(es) to clarify if the following diagnosis has been ruled in our ruled out: SEPSIS [ ] Ruled in diagnosis [ ] Continue to treat [ ] Resolved [ x ] Ruled out diagnosis [ ] Improving [ ] Cannot rule out diagnosis [ ] Other diagnosis [ ] Unable to determine In addition, please specify: Present on Admission (POA): [ ] Yes [ ] No [ ] Unable to determine ER NOTE: "SEVERE SEPSIS WITH SEPTIC SHOCK" PULSE 115 RR 32 RECTAL TEMP 100.5 LACTIC ACID (05/01): 4.8 H&P (A. MEGHA): "THE PATIENT WAS SEPTIC AND HYPOXIC UPON ARRIVAL TO ER" NO FURTHER MENTION OF SEPSIS RISKS: H/O COPD (ER NOTE) H/O DIABETES (ER NOTE) TREATMENT: IN LEVAQUIN (ER) IV VANCOMYCIN (ER) IV FLUIDS (ER-05/04) IV CEFEPIME (ER) BLOOD CULTURES 05/01 For continuity of documentation, please document condition throughout progress notes and discharge summary. Thank You. CDS/[place] Signature: Macie Rossi RN Phone #: Date 05/05/20 This is a permanent part of the Medical Record [facility]
[2020-05-05 16:36] VITALS: BP 134/83
--- NOTE | 2020-05-06 12:17 | DIS ---
DATE OF ADMISSION: 05/01/2020 DATE OF DISCHARGE: 05/05/2020 Mr. Cannon is a 69-year-old male with medical history of CVA, dysphagia, and enteral feeding through a PEG tube, who presented with acute nausea and vomiting. He was diagnosed with acute gastroenteritis. The patient initially did not tolerate his tube feedings, but feedings were well tolerated after the second day of admission. On the second day of the admission, the patient also developed urinary retention, most likely due to discontinuation of his doxazosin. Godinez was placed, but was discontinued on the 3rd day of admission of inpatient stay. The patient passed a Godinez trial. Tube feedings were changed to bolus feeds and he tolerated feeds with minimal residuals. He was discharged home hemodynamically stable with no complaints and with dietitian recommendations regarding his tube feeds. PHYSICAL EXAMINATION: VITAL SIGNS: Blood pressure 171/94, pulse 101, respiratory rate 20, oxygen saturation 97% on room air, and temperature 98.6. GENERAL: Lying comfortably in bed. Alert, following commands, nonverbal, which is baseline. HEENT: No JVD. HEART: Regular rate and rhythm. No murmurs, gallops, or rubs. RESPIRATORY: Clear to auscultation bilaterally. No wheezing, rales, or rhonchi. GASTROINTESTINAL: History of reducible periumbilical hernia. Soft, nontender, and nondistended. Normal bowel sounds. EXTREMITIES: No edema. MEDICATION LIST: New medications: No new medications. Modified medications: No modified medications. Discontinued medications: No discontinued medications. Old medications: 1. Docusate. 2. Doxazosin. 3. Escitalopram. 4. Levetiracetam. 5. Metformin. 6. Acetaminophen p.r.n. 7. Amlodipine. 8. Chlorpheniramine p.r.n. 9. Meclizine p.r.n. Job ID: [id number]
--- NOTE | 2020-05-06 13:01 | PQF ---
CLINICAL DOCUMENTATION CLARIFICATION FORM: Dear : Isauro Han Date / Time: 05/06/2020 Please exercise your independent, professional judgment in responding to the clarification form. Clinical indicators are provided on the bottom of this form for your review Please check appropriate box(es) to clarify if the following diagnosis has been ruled in our ruled out: Ileus [ ] Ruled in diagnosis [ ] Continue to treat [ ] Resolved [ ] Ruled out diagnosis [ ] Improving [ ] Cannot rule out diagnosis [ ] Other diagnosis [ x] Unable to determine In addition, please specify: Present on Admission (POA): [ x ] Yes [ ] No [ ] Unable to determine To be completed by CDI/Coding staff for physician review: Present Clinical Indicators - Signs / Symptoms / Labs Results and Location in Medical Record [ x ] Question of mild ileus. He did have 300 mL of fluid in his stomach that drained out from the gastrostomy tube. Had an episode of vomiting this morning. This can be managed symptomatically for now and he should continue to receive IV fluids Consult 05/01 by Levi Quiñonez MD [ x ] He presented to the ER today for 2 episodes of coffee-ground emesis. The vomiting episodes were last night and just prior to arrival in the ER this morning H&P Present Risk Factors Results and Location in Medical Record [ x ] Acute gastroenteritis Discharge summary Present Treatments Results and Location in Medical Record [ x ] IV fluids 05/01-05/05 Medications CDS/Desktop Architect Signature: SJ1 Phone #: Date/ Time: 05/06/2020 This is a permanent part of the Medical Record [facility]
--- NOTE | 2020-05-12 12:27 | PQF ---
CLINICAL DOCUMENTATION CLARIFICATION FORM: Dear : Isauro Han Date / Time: 05/12/2020 Please exercise your independent, professional judgment in responding to the clarification form. Clinical indicators are provided on the bottom of this form for your review Please check appropriate box(es): [ ] GI bleed is due to gastritis [ ] GI bleed is due to peptic ulcer disease [ ] GI bleed is due to gastroenteritis [ x ] Other diagnosis _no GI bleed [ ] Unable to determine In addition, please specify: Present on Admission (POA): [ ] Yes [ x ] No [ ] Unable to determineSHEA To be completed by CDI/Coding staff for physician review: Present Clinical Indicators - Signs / Symptoms / Labs Results and Location in Medical Record [ x ] Gastrointestinal bleed. If he passed a coffee-ground material earlier, he could have had some gastritis and/or peptic ulcer bleed Consult 05/01 by Levi Quiñonez MD [ x ] Report hematemesis with coffee-ground emesis. No signs of ongoing over bleeding now Progress note 05/02 by Levi Quiñonez MD [ x ] GI bleed, acute. H/H stable, continue to monitor. Continue PPI IV Progress 05/02 by Cristina Nicole [ x ] Gastrointestinal bleed resolved. There was a question of coffee-ground emesis on presentation, but no further evidence of overt bleeding Progress 05/01 by Levi Quiñonez MD [ x ] Presented with acute nausea and vomiting. He was diagnosed with acute gastroenteritis Discharge summary Present Risk Factors Results and Location in Medical Record [ x ] Gastroenteritis Discharge summary [ x ] PEG tube placement H&P Present Treatments Results and Location in Medical Record [ x ] Would put him on a proton pump inhibitor IV and recheck his hemoglobin tomorrow Consult 05/01 by Levi Quiñonez MD CDS/Facilities Maintenance Assistant Signature: [email or web address] Phone #: Date/ Time: 05/12/2020 This is a permanent part of the Medical Record [facility]
== END 2020-05-05 16:25 | DRG 392 ==
LOC: ERS 05:04 → T4-B 08:55
PROVIDERS: ADMIT Internal Medicine; ATTEND Internal Medicine
PROC: 0T9B70Z Drainage of Bladder with Drainage Device, Via Natural or Artificial Opening (ICD-10-PCS; principal; 2020-05-03)
DX: K52.9 Noninfective gastroenteritis and colitis, unspecified (principal); K56.7 Ileus, unspecified; Z20.828 Contact with and (suspected) exposure to other viral communicable diseases; K21.9 Gastro-esophageal reflux disease without esophagitis; E11.9 Type 2 diabetes mellitus without complications; F03.90 Unspecified dementia, unspecified severity, without behavioral disturbance, psychotic disturbance, mood disturbance, and anxiety; J44.9 Chronic obstructive pulmonary disease, unspecified; G40.909 Epilepsy, unspecified, not intractable, without status epilepticus; F41.9 Anxiety disorder, unspecified; F32.9 Major depressive disorder, single episode, unspecified; D72.829 Elevated white blood cell count, unspecified; N32.89 Other specified disorders of bladder; R14.0 Abdominal distension (gaseous); R11.2 Nausea with vomiting, unspecified; E86.0 Dehydration; R33.9 Retention of urine, unspecified; I69.891 Dysphagia following other cerebrovascular disease; Z93.1 Gastrostomy status; Z88.5 Allergy status to narcotic agent; Z79.84 Long term (current) use of oral hypoglycemic drugs; Z87.891 Personal history of nicotine dependence
CPT/HCPCS: 36415; 36416; 71045; 74018; 80048; 80053; 80202; 81003; 81015; 82271; 83605; 83735; 83880; 84484; 85025; 87040; 87149; 93005; 96361; 96365; 96367; 96375; C9113; J0692; J1956; J3370; J3475; J3480; J3490; J7050; U0002

== ENCOUNTER 2020-06-02 18:35 | Inpatient (IN) | payer MEDICARE, MEDICAID, OTHER ==
[~2020-06-02 18:35] MED LIST changes: -ISOVUE-370 76%-LOCM 1 ML ONE; -Iopamidol 370 76% 50 ML VIAL FS ONE; +Iopamidol-370 76% 500 ML 1 ML ONE
[2020-06-02 19:23] LABS: #Basophils 0.1 thou/uL (0.0-0.2); #Monocytes 0.8 thou/uL (0.11-0.59); #Neutrophils 13.6 thou/uL (1.40-6.50); %Basophils 0.3 % (0.0-1.0); %Eosinophils 0.2 % (0.0-10.0); %Lymphocytes 6.6 % (21.0-51.0); %Neutrophils 87.8 % (42.0-75.0); Hemoglobin 9.2 g/dL (14.0-18.0); Mean Corpuscular HGB CONC 33.2 g/dL (32.0-36.0); Mean Corpuscular Hemoglobin 32.2 pg (27.0-31.0); Mean Platelet Volume 11.8 fL (7.4-10.4); Platelet Count 200 thou/uL (130-400); RBC Distribution Width 12.2 % (11.5-14.5); Red Blood Cell (RBC) Count 2.87 mill/uL (4.70-6.10); White Blood Cell (WBC) Count 15.5 thou/uL (4.8-10.8)
[2020-06-02 19:31] LABS: INR-International Normal Ratio 1.1; Prothrombin Time 14.6 sec (12.0-14.7)
[2020-06-02 19:39] LABS: ALT (SGPT) 27 U/L (8-55); AST (SGOT) 14 U/L (5-34); Alkaline Phosphatase 65 U/L (40-110); Anion Gap 14 mmol/L (10-20); BUN (Urea Nitrogen) 78 mg/dL (8.4-25.7); Bilirubin, Total 0.2 mg/dL (0.2-1.2); Calc. Creatinine Clearance 0 mL/min (70-130); Calcium 9.1 mg/dL (7.8-10.44); Carbon Dioxide 30 mmol/L (23-31); Chloride 109 mmol/L (98-107); Estimated GFR-MDRD 78; Globulin 2.5 g/dL (2.4-3.5); Glucose 126 mg/dL (80-115); Lipase 25 U/L (8-78); Potassium 4.2 mmol/L (3.5-5.1); Protein, Total 5.5 g/dL (5.8-8.1); Sodium 149 mmol/L (136-145)
--- NOTE | 2020-06-02 20:45 | CT ---
CT abdomen and pelvis with IV contrast HISTORY: Hematemesis. COMPARISON: Multiple exams back to 2012. FINDINGS: Minimal atelectasis at the lung bases. Left upper quadrant PEG in place. Upper abdominal an terior midline hernia contains a small amount of the stomach and colon without obstruction. Stable. Calcification within the coronary arteries and other arterial structures. Significant fluid within the partially visualized esophagus. Small right adrenal lesion is stable back to 2012 and consistent with an adenoma. Hyperdense stones are present within the dependent portion of the gallbladder lumen. Prominent degenerative changes throughout the lumbar spine. IMPRESSION : Gastroesophageal reflux. Cause for hematemesis is not apparent. Left upper quadrant PEG in good posit ion. Atherosclerosis. Cholelithiasis. Chronic-type findings are stable.
--- NOTE | 2020-06-02 23:26 | PDOC.HHP ---
Hospitalist HPI - History of Present Illness coffe ground emesis History of Present Illness: Case of an 69y/o male bed bound skilled nursing resident with pmhx of cva with residual effects, dm, htn and dementia who comes to hospital due to two episodes of coffe ground hemesis. apparently patient was on his usual state of health until today when he had those episodes. of note patient with a similar admission 1 month ago for similar symptoms and was dx with acute gastoenteritis , this time patient seems to be more dehydrated and a decreased of 2-3grams of hemoglobin in 1 month. ED called Gi which refer no need for urget egd, hospitalist was called for further evaluation and management. history is limited , patient is almost non verbal can follow simple commands and answer simple questions, does refer abdominal pain Hospitalist ROS - Review of Systems ROS unobtainable: due to mental status Hospitalist History - Past Surgical History Other Surgical History: uanble to asses due to mental status - Family History Other Family History: uanble to asses due to mental status - Social History Other Social History: unable to asses due to mental status - Exam General Appearance: NAD, awake alert Eye: PERRL, anicteric sclera ENT: normocephalic atraumatic, no oropharyngeal lesions Neck: supple, symmetric, no JVD Heart: no murmur, no gallops, no rubs Heart - other findings: tachycardic Respiratory: CTAB, no wheezes, no rales Gastrointestinal: tender to palpation Extremities: no cyanosis, no clubbing, no edema Skin: normal turgor, no lesions, no rashes Neurological: no new deficit Musculoskeletal: normal tone, normal strength Psychiatric: normal affect, normal behavior Hospitalist Results - Labs Result Diagrams: 06/02/20 19:11 06/02/20 19:11 Lab results: WBC 15.5 thou/uL (4.8-10.8) H 06/02/20 19:11 Hgb 9.2 g/dL (14.0-18.0) L 06/02/20 19:11 Hct 27.8 % (42.0-52.0) L 06/02/20 19:11 MCV 97.0 fL (78.0-98.0) 06/02/20 19:11 Plt Count 200 thou/uL (130-400) 06/02/20 19:11 Neutrophils % 87.8 % (42.0-75.0) H 06/02/20 19:11 Sodium 149 mmol/L (136-145) H 06/02/20 19:11 Potassium 4.2 mmol/L (3.5-5.1) 06/02/20 19:11 Chloride 109 mmol/L (98-107) H 06/02/20 19:11 Carbon Dioxide 30 mmol/L (23-31) 06/02/20 19:11 BUN 78 mg/dL (8.4-25.7) H 06/02/20 19:11 Creatinine 0.96 mg/dL (0.7-1.3) 06/02/20 19:11 Glucose 126 mg/dL (80-115) H 06/02/20 19:11 Calcium 9.1 mg/dL (7.8-10.44) 06/02/20 19:11 Total Bilirubin 0.2 mg/dL (0.2-1.2) 06/02/20 19:11 AST 14 U/L (5-34) 06/02/20 19:11 ALT 27 U/L (8-55) 06/02/20 19:11 Alkaline Phosphatase 65 U/L (40-110) 06/02/20 19:11 Troponin I Less than 0.010 ng/mL (< 0.028) 06/02/20 19:11 Serum Total Protein 5.5 g/dL (5.8-8.1) L 06/02/20 19:11 Albumin 3.0 g/dL (3.4-4.8) L 06/02/20 19:11 Lipase 25 U/L (8-78) 06/02/20 19:11 Hospitalist H&P A/P - Problem (1) GI bleed Code(s): K92.2 - GASTROINTESTINAL HEMORRHAGE, UNSPECIFIED Status: Acute (2) Dehydration Code(s): E86.0 - DEHYDRATION Status: Acute (3) History of CVA with residual deficit Code(s): I69.30 - UNSPECIFIED SEQUELAE OF CEREBRAL INFARCTION Status: Acute (4) HTN (hypertension) Code(s): I10 - ESSENTIAL (PRIMARY) HYPERTENSION Status: Acute (5) Diabetes Code(s): E11.9 - TYPE 2 DIABETES MELLITUS WITHOUT COMPLICATIONS Status: Acute (6) Hypernatremia Code(s): E87.0 - HYPEROSMOLALITY AND HYPERNATREMIA Status: Acute - Plan Plan: 69y/o male with the stated pmhx who present with gi bleeding gi bleeding - 2-3g of decreased hg compared to last month - protonix drip - npo - gi consulted - 2 prbcs ordered by ed - gi consulted - check hg q 6hr hypernatremia / dehydration - likely hypovolemic - ivfs - f/u bmp dm -ss and acc htn - holding medication for now due to hypotension
[2020-06-02] MEDS ORDERED: Dextrose 5% in Water 1,000 ML IV PRN (23:39)
[2020-06-02] MEDS ORDERED: Dextrose 50% Abboject 50 ML SYRINGE SLOW IVP PRN (23:39)
[2020-06-03] MEDS: Sodium Chloride 0.9% 1,000 ML IV SCH ×2 (02:54→12:56)
[2020-06-03] MEDS: Pantoprazole 80 MG, Admixture Fee 1 EACH in Sodium Chloride 0.9% 100 ML IVPB SCH ×2 (02:54→12:41)
[2020-06-03 03:44] LABS: #Lymphocytes 1.2 thou/uL (1.20-3.40); #Monocytes 0.8 thou/uL (0.11-0.59); #Neutrophils 10.4 thou/uL (1.40-6.50); %Basophils 0.3 % (0.0-1.0); %Eosinophils 0.2 % (0.0-10.0); %Lymphocytes 9.7 % (21.0-51.0); %Monocytes 6.5 % (0.0-10.0); %Neutrophils 83.3 % (42.0-75.0); Hemoglobin 9.9 g/dL (14.0-18.0); Mean Corpuscular Hemoglobin 31.8 pg (27.0-31.0); Mean Corpuscular Volume 96.5 fL (78.0-98.0); Mean Platelet Volume 11.4 fL (7.4-10.4); Platelet Count 166 thou/uL (130-400); RBC Distribution Width 12.8 % (11.5-14.5); White Blood Cell (WBC) Count 12.5 thou/uL (4.8-10.8)
[2020-06-03 04:40] LABS: ALT (SGPT) 24 U/L (8-55); AST (SGOT) 15 U/L (5-34); Alkaline Phosphatase 57 U/L (40-110); Anion Gap 14 mmol/L (10-20); BUN (Urea Nitrogen) 72 mg/dL (8.4-25.7); Bilirubin, Total 0.3 mg/dL (0.2-1.2); Calc. Creatinine Clearance 88 mL/min (70-130); Calcium 8.7 mg/dL (7.8-10.44); Carbon Dioxide 25 mmol/L (23-31); Chloride 115 mmol/L (98-107); Estimated GFR-MDRD Greater than 90; Globulin 2.4 g/dL (2.4-3.5); Glucose 102 mg/dL (80-115); Potassium 3.9 mmol/L (3.5-5.1); Protein, Total 5.4 g/dL (5.8-8.1); Sodium 150 mmol/L (136-145)
[2020-06-03] MEDS ORDERED: Ondansetron PF 4 MG/2 ML Vial IVP PRN (07:55)
[2020-06-03 12:11] VITALS: BMI 24.3
[2020-06-03 13:19] LABS: Bacteria/HPF None Seen HPF (None Seen); Bilirubin Negative (Negative); Blood, Urine Negative (Negative); Clarity Clear (Clear); Glucose, Urine (Dipstick) Normal (Negative); Ketone, Urine Negative (Negative); Leukocyte 75 Leu/uL (Negative); Nitrite Negative (Negative); Protein, Urine (Dipstick) Negative (Neg-Trace); RBC/HPF 0-3 HPF (0-3); Specific Gravity, Urine 1.028 (1.002-1.036); Squamous Epithelial 0-3 HPF (0-3); Urobilinogen Normal mg/dL (Less than 2)
[2020-06-03] MEDS ORDERED: [UNRECOGNIZED DRUG - REMARK] PER TUBE PRN (13:30)
[2020-06-03] MEDS ORDERED: Acetaminophen 325 MG/10.15 ML UDCUP PER TUBE PRN (13:30)
[2020-06-03 15:48] LABS: SARS-CoV-2 MS2 Positive; SARS-CoV-2 N Gene Negative; SARS-CoV-2 S Gene Negative; SARS-CoV-2 by NAA Not Detected (NotDetected); SARS-CoV-2 orf1ab Negative
--- NOTE | 2020-06-03 17:21 | PDOC.HOSPP ---
- Subjective Subjective: Patient was seen examined at bedside. Discussed with nursing staff. His hemoglobin remained stable after 1 unit transfusion. No further bleeding noted. He currently is on PPI drip. Awaiting for GI eval. No other acute events overnight. - Objective Vital Signs & Weight: Vital Signs (12 hours) Temp Pulse Ox 06/03/20 15:22 97.6 F 06/03/20 11:38 98.0 F 06/03/20 07:53 99 06/03/20 07:40 97.9 F Weight Admit Weight 159 lb 9.835 oz Weight 159 lb 9.835 oz Most Recent Monitor Data Heart Rate from ECG 112 NIBP 126/69 NIBP BP-Mean 88 Respiration from ECG 16 SpO2 100 I&O: 06/02/20 06/03/20 06/04/20 06:59 06:59 06:59 Output Total 250 Balance -250 Result Diagrams: 06/03/20 15:11 06/03/20 03:19 Additional Labs: Accuchecks 06/03/20 06/03/20 06/03/20 17:07 13:09 06:24 POC Glucose 126 H 106 117 H 06/03/20 02:54 POC Glucose 117 H Hosp A/P - Plan - Exam General Appearance: NAD, awake alert Eye: PERRL, anicteric sclera ENT: normocephalic atraumatic, no oropharyngeal lesions Neck: supple, symmetric, no JVD Heart: no murmur, no gallops, no rubs Heart - other findings: tachycardic Respiratory: CTAB, no wheezes, no rales Gastrointestinal: tender to palpation Extremities: no cyanosis, no clubbing, no edema Skin: normal turgor, no lesions, no rashes Neurological: nonverbal Musculoskeletal: normal tone, normal strength Psychiatric: normal affect, normal behavior ASSESSMENT and plan: #Upper GI bleed-suspect gastritis and/or ulcer given history #Anemia of acute blood loss status post blood transfusion #History of CVA with residual weakness, bedbound #Dysphasia secondary to stroke, status post PEG #Hyponatremia #Diabetes mellitus #Chronic physical debility #Essential hypertension 06/03/2020 Patient remained hemodynamically stable after blood transfusion, status post 1 unit of packed RBC. His hemoglobin remaining above 9. We will change his PPI drip to IV twice daily. Adjust IV fluid hydration to correct his sodium. Continue monitor hemoglobin, transfuse if needed to keep hemoglobin above 9. No further bleeding noted. Awaiting for GI input. Repeat lab in a.m. Continue supportive care. Reviewed and resumed appropriate home meds.
[2020-06-03] MEDS: D5 1/2 NS w/10 mEq KCl 1,000 ML/1,000 ML BAG IV SCH (18:30)
[2020-06-03] MEDS: Pantoprazole 40 MG VIAL IVP SCH (20:08)
--- NOTE | 2020-06-04 02:34 | CON ---
DATE OF CONSULTATION: 06/03/2020 CHIEF COMPLAINT: Coffee-grounds emesis and anemia. HISTORY OF PRESENT ILLNESS: Mr. Cannon was sent to the emergency room from the long term after he reportedly had coffee-grounds emesis or coffee-ground material from his PEG tube. He had a similar episode a month ago for which empiric treatment with proton pump inhibitor was advised. He was discharged to the long term with a stable hemoglobin at that time. However, he was not continued on a proton pump inhibitor. He now comes back again with coffee-grounds emesis or at least coffee-grounds from his PEG tube and at this time, his hemoglobin has dropped down from a baseline of 12 to 9.2 to 9.9. The patient is not verbally interactive significantly. He has had prior strokes and has been bed bound and long term bound. He has had no blood in the stool or diarrhea or constipation known. PAST MEDICAL HISTORY: Diabetes mellitus type 2, gastroesophageal reflux disease, stroke, dementia, and COPD. 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 FAMILY HISTORY: Negative for GI malignancies. SOCIAL HISTORY: He is a former smoker. No drugs or alcohol. He resides at a long term now. ALLERGIES: CODEINE. MEDICATIONS: 1. Amlodipine. 2. Docusate. 3. Doxazosin. 4. Escitalopram. 5. Levetiracetam. 6. Meclizine. 7. Metformin. These were prior to admission. Currently as an inpatient, he is takin. Amlodipine. 2. Docusate. 3. Levetiracetam. 4. Pantoprazole 40 mg IV q.12 hours. REVIEW OF SYSTEMS: Unobtainable due to his dementia and stroke. PHYSICAL EXAMINATION: VITAL SIGNS: Temperature 97.2, blood pressure 124/78, and pulse 96. GENERAL: He is in no acute distress. He is arousable, but not oriented. HEENT: His eyes have no scleral icterus. Oropharynx is clear without lesions. No cervical or supraclavicular lymphadenopathy. LUNGS: Clear to auscultation bilaterally. HEART: Regular rate and rhythm without murmur. ABDOMEN: Soft, nontender, and nondistended. Bowel sounds are present. He has a PEG tube in place and granulation tissue around the PEG tube opening, but the tube looks appropriate and is not tight. RECTAL: Reveals light brown stool in the rectal vault without signs of melena or blood. EXTREMITIES: No lower extremity edema. His gastrostomy tube does have some black flecks in the tubing. IMAGING: He had a CT scan of the abdomen and pelvis on presentation, which showed cholelithiasis. LABORATORY DATA: White blood cell count 12.5, hemoglobin 9.9, platelets 166. Baseline hemoglobin on May 05 was 11.7. INR 1.1. Creatinine 0.83. Bilirubin 0.3, AST 15, ALT 24, alkaline phosphatase 57, and albumin 3.0. IMPRESSION: 1. Recurrent gastrointestinal bleed presenting with hematemesis or black material in the gastrostomy tube. At this time, he has had a drop in his hemoglobin by couple of grams. He had a similar presentation a month ago, which was treated empirically with proton pump inhibitor in the hospital, but he has not been continued on the proton pump inhibitor as an outpatient. He could have an ulcer or gastritis. He could have mechanical irritation of the gastric lining if his internal bumper of his gastrostomy tube was rubbing on the mucosa. He could have erosive esophagitis. He did have an endoscopy by Dr. Meyer back in 2013 that showed erosive esophagitis. I discussed the options with his daughter, Samantha, who has the power of securities attorney. Given that he is now having recurrent hospitalizations with similar problems and now with a drop in his hemoglobin, we have decided to pursue upper endoscopy to assess for bleeding source. Overall, he does not appear to have significant large volume bleeding now as he has light brown stool in the rectal vault. 2. Anemia. This could be related to acute blood loss. I would check iron studies and B12 and folate as well. 3. Proton pump inhibitor IV. He should continue on a proton pump inhibitor after discharge. I did discuss the risks and benefits of the procedure in detail with the patient's daughter. Job ID: [id number]
[2020-06-04 03:57] LABS: #Basophils 0.1 thou/uL (0.0-0.2); #Eosinphils 0.2 thou/uL (0.0-0.7); #Lymphocytes 1.5 thou/uL (1.20-3.40); #Monocytes 0.6 thou/uL (0.11-0.59); #Neutrophils 8.4 thou/uL (1.40-6.50); %Basophils 0.5 % (0.0-1.0); %Eosinophils 1.5 % (0.0-10.0); %Lymphocytes 13.8 % (21.0-51.0); %Monocytes 5.6 % (0.0-10.0); %Neutrophils 78.6 % (42.0-75.0); Hemoglobin 9.2 g/dL (14.0-18.0); Mean Corpuscular HGB CONC 32.9 g/dL (32.0-36.0); Mean Corpuscular Hemoglobin 31.5 pg (27.0-31.0); Mean Corpuscular Volume 95.8 fL (78.0-98.0); Mean Platelet Volume 11.3 fL (7.4-10.4); Platelet Count 139 thou/uL (130-400); RBC Distribution Width 13.3 % (11.5-14.5); Red Blood Cell (RBC) Count 2.92 mill/uL (4.70-6.10); White Blood Cell (WBC) Count 10.7 thou/uL (4.8-10.8)
[2020-06-04 04:08] LABS: Anion Gap 10 mmol/L (10-20); BUN (Urea Nitrogen) 36 mg/dL (8.4-25.7); Calc. Creatinine Clearance 94 mL/min (70-130); Calcium 8.6 mg/dL (7.8-10.44); Carbon Dioxide 26 mmol/L (23-31); Chloride 120 mmol/L (98-107); Estimated GFR-MDRD Greater than 90; Glucose 108 mg/dL (80-115); Iron 52 ug/dL (65-175); Iron Binding Capacity, Total 250 mcg/dL (261-462); Potassium 4.4 mmol/L (3.5-5.1); Sodium 152 mmol/L (136-145)
[2020-06-04 04:49] LABS: Ferritin 42.51 ng/mL (22-322)
[2020-06-04] MEDS: D5 1/2 NS w/10 mEq KCl 1,000 ML/1,000 ML BAG IV SCH ×2 (06:35→16:14)
[2020-06-04] MEDS ORDERED: Lidocaine 1% PF 5 ML VIAL ONE (09:20)
[2020-06-04] MEDS ORDERED: PROPOFOL 200 MG/20 ML VIAL ONE (09:20)
[2020-06-04] MEDS ORDERED: Glycopyrrolate 0.2 MG/ML 5 ML SYRINGE ONE (09:20)
[2020-06-04] MEDS ORDERED: Rocuronium Bromide 10 MG/ML (10ML VIAL) ONE (09:20)
[2020-06-04] MEDS: Amlodipine 10 MG TAB PER TUBE SCH (10:52)
[2020-06-04] MEDS: Doxazosin Mesylate 1 MG TAB PER TUBE SCH (10:53)
[2020-06-04] MEDS: Docusate Sodium 100 MG/10 ML UDCUP PER TUBE SCH (10:53)
[2020-06-04] MEDS: levETIRAcetam 500 mg/5 ml Oral Solution PER TUBE SCH (10:53)
[2020-06-04] MEDS: Pantoprazole 40 MG VIAL IVP SCH ×2 (10:53→20:01)
--- NOTE | 2020-06-04 18:01 | PDOC.HOSPP ---
- Subjective Subjective: s/p EGD, procedure reports pending. Hb stable. updated daughter. - Objective Vital Signs & Weight: Vital Signs (12 hours) Temp Pulse Resp BP Pulse Ox 06/04/20 14:42 107 H 19 131/72 100 06/04/20 14:15 101 H 22 H 122/78 100 06/04/20 13:45 98.5 F 106 H 20 114/68 100 06/04/20 07:10 97.4 F L Weight Admit Weight 159 lb 9.835 oz Weight 159 lb 9.835 oz Most Recent Monitor Data Heart Rate from ECG 91 NIBP 109/62 NIBP BP-Mean 77 Respiration from ECG 19 SpO2 100 I&O: 06/03/20 06/04/20 06/05/20 06:59 06:59 06:59 Output Total 250 Balance -250 Result Diagrams: 06/04/20 03:19 06/04/20 03:19 Additional Labs: Accuchecks 06/04/20 06/04/20 06/04/20 16:07 10:41 06:10 POC Glucose 110 118 H 110 06/03/20 23:43 POC Glucose 119 H Hospitalist ROS - Medication Medications: Active Medications Generic Name Dose Route Start Last Admin Trade Name Freq PRN Reason Stop Dose Admin Amlodipine Besylate 10 mg 06/04/20 09:00 06/04/20 10:52 Norvasc PER TUBE Not Given DAILY [facility] Docusate Sodium 100 mg 06/04/20 09:00 06/04/20 10:53 Colace Liquid PER TUBE Not Given DAILY [facility] Doxazosin Mesylate 1 mg 06/04/20 09:00 06/04/20 10:53 Cardura PER TUBE Not Given DAILY [facility] Potassium Chloride/Dextrose/Sod Cl 1,000 ml in 1,000 mls @ 75 mls/hr 06/03/20 18:00 06/04/20 16:14 D5 1/2 Ns W/10 Meq Kcl IV 1,000 mls .[id number] ZHANG Administration Levetiracetam 1,000 mg 06/04/20 09:00 06/04/20 10:53 Keppra Oral Solution PER TUBE Not Given DAILY [facility] Pantoprazole Sodium 40 mg 06/03/20 21:00 06/04/20 10:53 Protonix IVP Not Given Q12HR ZHANG Hosp A/P - Plan - Exam General Appearance: NAD, awake alert Eye: PERRL, anicteric sclera ENT: normocephalic atraumatic, no oropharyngeal lesions Neck: supple, symmetric, no JVD Heart: no murmur, no gallops, no rubs Heart - other findings: tachycardic Respiratory: CTAB, no wheezes, no rales Gastrointestinal: tender to palpation Extremities: no cyanosis, no clubbing, no edema Skin: normal turgor, no lesions, no rashes Neurological: nonverbal Musculoskeletal: normal tone, normal strength Psychiatric: normal affect, normal behavior ASSESSMENT and plan: #Upper GI bleed-suspect gastritis and/or ulcer given history #Anemia of acute blood loss status post blood transfusion #History of CVA with residual weakness, bedbound #Dysphasia secondary to stroke, status post PEG #Hyponatremia #Diabetes mellitus #Chronic physical debility #Essential hypertension 06/03/2020 Patient remained hemodynamically stable after blood transfusion, status post 1 unit of packed RBC. His hemoglobin remaining above 9. We will change his PPI drip to IV twice daily. Adjust IV fluid hydration to correct his sodium. Continue monitor hemoglobin, transfuse if needed to keep hemoglobin above 9. No further bleeding noted. Awaiting for GI input. Repeat lab in a.m. Continue supportive care. Reviewed and resumed appropriate home meds. 06/04/2020 s/p EGD, pending reports. Hb stable. recheck CBC in AM. cont PPI. appreciate GI input. Updated daughter on the phone.
[2020-06-05] MEDS: D5 1/2 NS w/10 mEq KCl 1,000 ML/1,000 ML BAG IV SCH (05:22)
[2020-06-05] MEDS: HumaLOG 300 UNITS/3 ML VIAL SC PRN ×2 (05:25→17:40)
[2020-06-05 08:21] LABS: Platelet Count 149 thou/uL (130-400)
[2020-06-05] MEDS: Amlodipine 10 MG TAB PER TUBE SCH (09:23)
[2020-06-05] MEDS: Doxazosin Mesylate 1 MG TAB PER TUBE SCH (09:24)
[2020-06-05] MEDS: levETIRAcetam 500 mg/5 ml Oral Solution PER TUBE SCH (09:24)
[2020-06-05] MEDS: Pantoprazole 40 MG VIAL IVP SCH (09:24)
[2020-06-05] MEDS: Docusate Sodium 100 MG/10 ML UDCUP PER TUBE SCH (09:24)
[2020-06-05 13:47] LABS: Hemoglobin 8.8 g/dL (14.0-18.0); Platelet Count 151 thou/uL (130-400)
--- NOTE | 2020-06-05 15:44 | DIS ---
DATE OF ADMISSION: 06/02/2020 DATE OF DISCHARGE: 06/05/2020 DISCHARGE DIAGNOSES: 1. Upper gastrointestinal bleed secondary to gastritis. 2. Anemia of acute blood loss, status post blood transfusion. Hemoglobin stable. 3. Hyponatremia, corrected. 4. Diabetes, type 2. 5. Chronic disability. 6. History of cerebrovascular accident with residual weakness, bedbound. 7. Dysphagia secondary to previous stroke, status post percutaneous endoscopic gastrostomy. 8. Essential hypertension. CONSULTATION: GI, Dr. Levi Quiñonez. PROCEDURES PERFORMED: Esophagogastroduodenoscopy performed by Dr. Quiñonez. Procedure note is still pending at the time of discharge; however, I have discussed with GI, it appeared that he has some gastritis noted on esophagogastroduodenoscopy. Otherwise, there is no evidence of active bleeding. HISTORY OF PRESENT ILLNESS AND BRIEF HOSPITAL COURSE: The patient is an unfortunate 69-year-old male, who has significant past medical history of CVA with residual weakness, bedbound; diabetes, type 2; hypertension; dementia; anemia; and dysphagia secondary to stroke with status post PEG, who was sent from the senior living for coffee-grounds emesis x2. Initial workup in the ED found that he had a hemoglobin of 9.2, which came down 2 g from his previous admission. The patient was subsequently admitted to Hospitalist Service. The patient was started on PPI drip and subsequently transitioned to b.i.d. dosing as his hemoglobin remained stable. The patient was given 1 unit of packed RBC transfusion for his acute blood loss anemia. GI was consulted. The patient underwent EGD, which he tolerated procedure well. Found some gastritis, but no evidence of active bleeding. However, his procedure note is still pending at the time of discharge. I have discussed with GI. Since his hemoglobins remained stable, he is stable to discharge back to senior living. I have updated his daughter. His hemoglobin remained above 8. There was no further bleeding or hematemesis noted. I have discussed with GI, recommend to continue with PPI b.i.d. x8 weeks, then once a day thereafter. DISPOSITION: The patient is stable to discharge back to the senior living. ACTIVITY: As tolerated. DIET: Continue PEG tube feeding. PHYSICAL EXAMINATION: GENERAL APPEARANCE: The patient is not in acute distress. HEENT: Normocephalic and atraumatic. NECK: Supple. No lymphadenopathy. CARDIAC: Regular rate and rhythm. S1 and S2 noted. No murmur. RESPIRATORY: Clear to auscultation bilaterally. ABDOMEN: Soft and nondistended. He does have an abdominal hernia. Nontender to palpation. Positive for PEG. PEG site, clean and intact. No erythema or drainage noted. EXTREMITIES: No edema or cyanosis. NEUROLOGIC: The patient had generalized weakness. He is alert and oriented x2. LABORATORY DATA: CT abdomen and pelvis, GERD. Cause for hematemesis is not apparent. Left upper quadrant PEG in good position. Atherosclerosis noted. Cholelithiasis. Chronic type finding. Stable. Hemoglobin 8.8, hematocrit 26.4. INR 1.1. Chemistry; sodium 149, potassium 4.2 , chloride 109, carbon dioxide 30, anion gap 14, BUN 78, creatinine 0.96, albumin 3.0, calcium 9.1. FOLLOWUP: The patient was advised to take his medication as prescribed. Follow up with PCP in 1 to 2 weeks. Repeat CBC to make sure his hemoglobin remains stable. Return to ED if his symptom recurs or worsens. DISCHARGE MEDICATIONS: 1. Tylenol liquid 160 mg/5 mL, take 10 mL per tube q.4 p.r.n. for pain. 2. Norvasc 10 mg per tube daily. 3. Colace liquid 100 mg per tube daily. 4. Cardura 1 mg per tube daily. 5. Lexapro 10 mg per tube daily. 6. Keppra 100 mg per tube daily. 7. Meclizine 25 mg per tube p.r.n. 8. Metformin 1000 mg per tube daily. 9. Protonix 40 mg p.o. b.i.d. x8 weeks, then once daily thereafter. Job ID: [id number] [facility]
[2020-06-05 15:48] VITALS: TEMP 98.6
[2020-06-05 18:04] VITALS: BP 105/64
--- NOTE | 2020-06-06 14:23 | OP ---
DATE OF PROCEDURE: 06/04/2020 PREPROCEDURE DIAGNOSIS: Coffee-grounds emesis. POSTPROCEDURE DIAGNOSES: 1. Erosive esophagitis, biopsied. 2. PEG tube in place in the stomach with replacement balloon which slides in and out of the PEG tube tract. 3. Ulcers in the distal esophagus. 4. Otherwise normal esophagogastroduodenoscopy. PROCEDURES PERFORMED: Esophagogastroduodenoscopy with biopsy. Also, the PEG tube was taped at the bumper, so it could not slide in and out of the stomach and cause functional obstruction with the inflated balloon. RECOMMENDATIONS: 1. Await histopathology. 2. PPI therapy. 3. Resume tube feeds. ANESTHESIA: TIVA. PROCEDURE IN DETAIL: After the patient was informed of the risks, benefits, and possible complications of endoscopy including perforation, reaction to medication, and aspiration, informed consent was obtained. The patient was brought to the endoscopy suite, where he was sedated in gradual fashion. Once he was comfortable, bite block was placed in the incisural orifice. The endoscope was advanced through the esophagus, stomach, into the second and third portions of the duodenum and slowly removed. There was severe erosive esophagitis in the distal esophagus in the distal half. There was an area of raised mucosa, which was unclear if this was area of healing or neoplasia. Multiple biopsies were obtained and submitted to Pathology. This was right at the GE junction. The stomach was entered and found to be normal in forward and retroflexed views except for chronic atrophic gastritis. The balloon from the PEG tube was in the lumen of the stomach, manipulated this. This could be moved in and out through the bumper very easily. The pylorus was entered and found to be normal. The duodenum was normal to the third portion. Retroflexed views were normal in the stomach. The scope was removed. The patient tolerated the procedure well without complications. The PEG tube was tightened, had the bumper with tape, so it could not slide in and out of the PEG tube tract in the stomach causing functional obstruction of the pylorus. This patient was brought to recovery room in stable condition. Job ID: [id number]
--- NOTE | 2020-06-11 15:17 | EKG ---
Test Reason : Blood Pressure : / mmHG Vent. Rate : 128 BPM Atrial Rate : 128 BPM P-R Int : 120 ms QRS Dur : 066 ms QT Int : 314 ms P-R-T Axes : 041 061 062 degrees QTc Int : 458 ms Sinus tachycardia Otherwise normal ECG Confirmed by YFN GUILLEN DO ([id number]), story editor DESHAWN PAEZ ([id number]) on 06/11/2020 3:16:41 PM Referred By: Confirmed By:YFN GUILLEN DO
== END 2020-06-05 17:53 | DRG 378 ==
LOC: ERS 18:35 → IMCU/EMU 22:33 → T4-B 06-04 13:47
PROVIDERS: ADMIT Internal Medicine; ATTEND Internal Medicine
PROC: 30233N1 Transfusion of Nonautologous Red Blood Cells into Peripheral Vein, Percutaneous Approach (ICD-10-PCS; 2020-06-02)
PROC: 0DB58ZX Excision of Esophagus, Via Natural or Artificial Opening Endoscopic, Diagnostic (ICD-10-PCS; principal; 2020-06-04)
DX: K29.71 Gastritis, unspecified, with bleeding (principal); D62 Acute posthemorrhagic anemia; E87.0 Hyperosmolality and hypernatremia; I69.359 Hemiplegia and hemiparesis following cerebral infarction affecting unspecified side; K22.10 Ulcer of esophagus without bleeding; E11.9 Type 2 diabetes mellitus without complications; I69.391 Dysphagia following cerebral infarction; R13.10 Dysphagia, unspecified; I10 Essential (primary) hypertension; F03.90 Unspecified dementia, unspecified severity, without behavioral disturbance, psychotic disturbance, mood disturbance, and anxiety; E86.0 Dehydration; K21.9 Gastro-esophageal reflux disease without esophagitis; J44.9 Chronic obstructive pulmonary disease, unspecified; F41.9 Anxiety disorder, unspecified; R53.81 Other malaise; F32.9 Major depressive disorder, single episode, unspecified; Z74.01 Bed confinement status; Z93.1 Gastrostomy status
CPT/HCPCS: 36415; 36416; 36430; 74177; 80048; 80053; 81001; 82607; 82728; 82746; 83540; 83550; 83690; 83735; 84484; 85014; 85018; 85025; 85049; 85610; 85730; 86850; 86900; 86901; 87635; 88305; 88312; 88313; 93005; 96360; 96361; 96365; 96366; C9113; J2704; J3490; P9016; Q9967; U0003

== ENCOUNTER 2020-08-11 00:38 | Inpatient (IN) | payer MEDICARE, MEDICAID, OTHER ==
[2020-08-11 01:17] LABS: #Lymphocytes 0.7 thou/uL (1.20-3.40); #Monocytes 0.8 thou/uL (0.11-0.59); #Neutrophils 10.2 thou/uL (1.40-6.50); %Basophils 0.1 % (0.0-1.0); %Eosinophils 0.1 % (0.0-10.0); %Lymphocytes 5.7 % (21.0-51.0); %Monocytes 6.7 % (0.0-10.0); %Neutrophils 87.4 % (42.0-75.0); Hemoglobin 11.3 g/dL (14.0-18.0); Mean Corpuscular HGB CONC 33.4 g/dL (32.0-36.0); Mean Corpuscular Hemoglobin 27.8 pg (27.0-31.0); Mean Corpuscular Volume 83.3 fL (78.0-98.0); Mean Platelet Volume 11.7 fL (7.4-10.4); Platelet Count 177 thou/uL (130-400); RBC Distribution Width 14.7 % (11.5-14.5); Red Blood Cell (RBC) Count 4.06 mill/uL (4.70-6.10); White Blood Cell (WBC) Count 11.6 thou/uL (4.8-10.8)
[2020-08-11 01:19] LABS: INR-International Normal Ratio 1.1; PTT 40.5 sec (22.9-36.1)
[2020-08-11 01:36] LABS: ALT (SGPT) 14 U/L (8-55); AST (SGOT) 14 U/L (5-34); Albumin 3.8 g/dL (3.4-4.8); Alkaline Phosphatase 89 U/L (40-110); Anion Gap 14 mmol/L (10-20); BUN (Urea Nitrogen) 25 mg/dL (8.4-25.7); Bilirubin, Total 0.4 mg/dL (0.2-1.2); Calc. Creatinine Clearance 0 mL/min (70-130); Calcium 9.6 mg/dL (7.8-10.44); Carbon Dioxide 28 mmol/L (23-31); Chloride 101 mmol/L (98-107); Estimated GFR-MDRD Greater than 90; Globulin 3.6 g/dL (2.4-3.5); Glucose 134 mg/dL (80-115); Potassium 3.8 mmol/L (3.5-5.1); Protein, Total 7.4 g/dL (5.8-8.1); Sodium 139 mmol/L (136-145)
[2020-08-11] MEDS ORDERED: Ondansetron PF 4 MG/2 ML Vial ONE (02:55)
[2020-08-11] MEDS ORDERED: Pantoprazole 40 MG VIAL ONE (03:13)
--- NOTE | 2020-08-11 04:22 | PDOC.FPRHP ---
- History of Present Illness Chief Complaint: Bloody emesis History of Present Illness: Pt is a 70 yo male with PMH of CVA resulting in dysphagia, aphasia, and hemiplegia/hemiparesis of the right side, HTN, DM, and multiple GI bleeds who presents from his care home for 2 episodes of brown colored emesis. The patient was unable to provide any information during examination, so the majority of info was obtained from handoff, care home paperwork, and previous admission. He underwent EDG on 06/03/2020 which showed erosive esophagitis and ulcers in the distal esophagus. At that time, it was recommended that patient continue PPI BID for 8 weeks followed by PPI once a day. MPOA: Samantha Cannon (daughter) [phone] ED Course: Protonix 40 mg, zofran - Allergies/Adverse Reactions Allergies Allergy/AdvReac Type Severity Reaction Status Date / Time codeine Allergy Verified 06/03/20 00:45 - Home Medications Medication Instructions Recorded Confirmed Type Amlodipine [Norvasc] 10 mg PER TUBE DAILY 04/30/13 06/03/20 History Docusate Sodium [Colace Liquid] 100 mg PER TUBE DAILY 12/13/13 06/03/20 History Doxazosin Mesylate [Cardura] 1 mg PER TUBE DAILY 12/13/13 06/03/20 History Escitalopram Oxalate [Lexapro] 10 mg PER TUBE DAILY 12/13/13 06/03/20 History levETIRAcetam [Keppra Oral 10 ml PER TUBE DAILY 12/13/13 06/03/20 History Solution] Acetaminophen [Children's 10 ml PER TUBE Q4HR PRN 11/10/14 06/03/20 History Acetaminophen Oral Suspension] Chlorpheniramine Maleate 4 mg PER TUBE Q6HR PRN 11/10/14 06/03/20 History [Chlor-Trimeton Allergy 4 Hour] metFORMIN HCl 1,000 mg PER TUBE QAM-WM 11/10/14 06/03/20 History Meclizine HCl 25 mg PER TUBE 12 PRN 05/01/20 06/03/20 History Pantoprazole [Protonix] 40 mg PO BID #60 pk 06/05/20 Rx - History PMHx: CVA resulting in dysphagia, aphasia, and hemiplegia/hemiparesis of the right side, HTN, DM, and multiple GI bleeds PSHx: unable to obtain FHx: unable to obtain Social: unable to obtain - Review of Systems ROS unobtainable: due to mental status - Vital signs BP: 143/90 HR:99 RR: 20 Tmax: 98.4 Pox: 95% on RA Wt: 74 kg - Physical Exam Constitutional: NAD -Constitutional: Aphasic HEENT: normocephalic and atraumatic, MMM -HEENT: Poor dentition Neck: supple, FROM Heart: RRR, normal S1/S2, no murmurs/rubs/gallops -Heart: Large hernia present, soft and reducable, appears to be non tender, PEG tube in place Lungs: CTAB, no respiratory distress Abdomen: soft, non-tender, bowel sounds present Musculoskeletal: normal structure, normal tone -Neurological: Right sided deficits s/p CVA, right upper extremity contracture Skin: no rash/lesions Heme/Lymphatic: no unusual bruising or bleeding, no purpura, no petechia -Psychiatric: Aphasic FMR H&P: Results - Labs Result Diagrams: 08/11/20 01:05 08/11/20 01:04 Lab results: WBC 11.6 thou/uL (4.8-10.8) H 08/11/20 01:05 Hgb 11.3 g/dL (14.0-18.0) L 08/11/20 01:05 Hct 33.8 % (42.0-52.0) L 08/11/20 01:05 MCV 83.3 fL (78.0-98.0) 08/11/20 01:05 Plt Count 177 thou/uL (130-400) 08/11/20 01:05 Neutrophils % 87.4 % (42.0-75.0) H 08/11/20 01:05 Sodium 139 mmol/L (136-145) 08/11/20 01:04 Potassium 3.8 mmol/L (3.5-5.1) 08/11/20 01:04 Chloride 101 mmol/L (98-107) 08/11/20 01:04 Carbon Dioxide 28 mmol/L (23-31) 08/11/20 01:04 BUN 25 mg/dL (8.4-25.7) 08/11/20 01:04 Creatinine 0.82 mg/dL (0.7-1.3) 08/11/20 01:04 Glucose 134 mg/dL (80-115) H 08/11/20 01:04 Calcium 9.6 mg/dL (7.8-10.44) 08/11/20 01:04 Total Bilirubin 0.4 mg/dL (0.2-1.2) 08/11/20 01:04 AST 14 U/L (5-34) 08/11/20 01:04 ALT 14 U/L (8-55) 08/11/20 01:04 Alkaline Phosphatase 89 U/L (40-110) 08/11/20 01:04 Serum Total Protein 7.4 g/dL (5.8-8.1) 08/11/20 01:04 Albumin 3.8 g/dL (3.4-4.8) 08/11/20 01:04 - Radiology Interpretation CT scan - abdomen Additional comment: Official report pending, large abdominal hernia noted US - abdomen Additional comment: Official report pending FMR H&P: A/P - Plan Likely Upper GI Bleed - history of multiple GI bleeds - EKG in May 2020: erosive esophagitis and ulcers in the distal esophagus - patient discharged on PPI BID for 8 weeks followed by PPI once a day - Hgb: 11.6 - vitals stable - s/p IV protonix in ED - will continue 40 mg IV protonix q12hr - patient has PEG tube, but will be made NPO - will consult GI today - LR @ 100 ml/hr Chronic conditions: Hx of CVA with dysphagia, aphasia, and hemiplegia/hemiparesis: aware Dementia: aware DM: continue home meds after GI eval HTN: continue home meds after GI eval Epilepsy: consider switching to IV anti-epileptics while NPO PCP: Dr. Garzon Code: Full IVF: LR @ 100 mls/hr PPx: Protonix, SCDs Diet: NPO pending GI eval Dispo: will admit for further medical management; likely LOS > 48 hrs. FMR H&P: Upper Level - Plan Date/Time: 08/11/20 0421 ILeonela MD, have evaluated this patient and agree with findings/plan as outlined by diversity intern resident. Pertinent changes/additions are listed here. This is a 70yo M sent here via EMS from his [place] in [place] for coffee ground emesis. He has a PMH significant for upper GI bleed in the past from erosive esophagitis. He was last here in May with similar symptoms and had EGD performed by Dr. Medina. He was sent home on protonix. Patient is unable to provide history due to vascular dementia from previous CVA with right sided deficits and aphasia. Daughter was notified of patient's admission but unable to provide any additional information as she has not been able to visit him in the care home. In the ER, the patient was resting comfortably. VS were stable, slightly tachycardic. PE remarkable for midline abdominal hernia, reducible, PEG tube in place with no drainage, poor dentition, right sided upper extremity contracture, patient axoxo. Will admit patient to medical obs for likely upper GI bleed. Will start protonix IV BID. Will consult GI later this AM. Currently VS stable. Hgb increased from May. Abdominal US and CT read pending. Continue medications for chronic conditions. A1c pending. Will consult palliative care to discuss advanced directives with daughter. Dispo: admit to med, inpt Diet: NPO Code: FULL PCP: DO Kenneth Geiger [facility] Case to be discussed with Dr. Kelly. See diversity intern note for full history. Addendum - Attending - Attending Attestation Date/Time: 08/11/20 [id number] I personally evaluated the patient and discussed the management with Dr. Barros/James. I agree with the History, Examination, Assessment and Plan documented above with any addition or exceptions noted below. Patient with history of severe gastritis and multiple hospitalizations for similar issues presenting with concerns for hematemesis. His H/H and vital signs are stable. Protonix BID, Consult GI.
[2020-08-11] MEDS ORDERED: Ondansetron PF 4 MG/2 ML Vial IVP PRN (04:50)
[2020-08-11] MEDS ORDERED: Ondansetron ODT 4 MG TAB PO PRN (04:50)
[2020-08-11] MEDS ORDERED: Acetaminophen 325 MG TAB PO PRN (04:50)
[2020-08-11 05:58] LABS: Hemoglobin A1c 5.3 % (4.0-6.0)
[2020-08-11] MEDS ORDERED: Dextrose 5% in Water 1,000 ML IV PRN (06:02)
[2020-08-11] MEDS ORDERED: Dextrose 50% Abboject 50 ML SYRINGE SLOW IVP PRN (06:02)
[2020-08-11] MEDS ORDERED: HumaLOG 300 UNITS/3 ML VIAL SC PRN ×2 (06:02)
--- NOTE | 2020-08-11 06:52 | PDOC.FM ---
- Subjective Subjective: Mr. Cannon appears to be doing well this morning as he denied any sx I asked him about, although his severe dysphasia limits communication. Denies throat pain/discomfort, abdominal pain, anymore episodes of vomiting since he arrived, diarrhea. He denies SOB but endorses a cough which he appears to indicate is chronic. - Objective Result Diagrams: 08/11/20 01:05 08/11/20 01:04 Phys Exam - Physical Examination Constitutional: NAD (sitting comfortably in bed, awake, alert) Neck: supple Signficant diffuse rales in b/l lungs Cardiovascular: RRR (Auscultation difficult d/t severity of rales) Gastrointestinal: soft, non-tender, no distention, positive bowel sounds Musculoskeletal: no edema, pulses present Hemiplegia of R UE/LE. Severe dysphasia. Psychiatric: normal affect Skin: no rash Dx/Plan - Plan Plan: Likely Upper GI Bleed - history of multiple GI bleeds - EKG in May 2020: erosive esophagitis and ulcers in the distal esophagus - Hgb c/w previous visits - vitals stable - 40 mg IV protonix q12hr - patient has PEG tube, but will be made NPO - CT abd and abd US reports pending - will consult GI today - LR @ 100 ml/hr Chronic conditions: Hx of CVA with dysphagia, aphasia, and hemiplegia/hemiparesis: aware Dementia: POA, aware DM: continue home meds after GI eval HTN: continue home meds after GI eval Epilepsy: consider switching to IV anti-epileptics while NPO PCP: Dr. Garzon Code: Full IVF: LR @ 100 mls/hr PPx: Protonix, SCDs Diet: NPO pending GI eval Dispo: will admit for further medical management; likely LOS > 48 hrs. Addendum - Attending - Attending Attestation Date/Time: 08/11/20 5428 I personally evaluated the patient and discussed the management with Dr. Alhaji Michael. I agree with the History, Examination, Assessment and Plan documented above with any addition or exceptions noted below.
--- NOTE | 2020-08-11 07:41 | ULT ---
PRELIMINARY REPORT/[facility]/EMERGENCY AFTER HOURS PROCEDURE EXAM: US Abdomen Limited, Right Upper Quadrant. CLINICAL HISTORY: HX: VOMITING. SEE NOTES ON LAST IMAGE. THANKS TECHNIQUE: Real-time ultrasound of the right upper quadrant with image documentation. COMPARISON: None provided. FINDINGS: LIVER: Unremarkable. GALLBLADDER: The gallbladder is distended with questionable stone in the neck region. Sonographic Browne's signs i s not conclusive. Cholecystitis cannot be excluded. COMMON BILE DUCT: No dilation. PANCREAS: Not well visualized. RIGHT KIDNEY: Unremarkable. No hydronephrosis. IMPRESSION: The gallbladder is distended with questionable stone in the neck region. Sonographic Browne's signs i s not conclusive. Cholecystitis cannot be excluded. ELECTRONICALLY SIGNED BY: Carl Castellanos MD Aug 11, 2020 3:39:59 AM CDT This report is intended for review by the ordering physician only, in accordance of law. If you recei ve this report in error, please call [facility] at [phone]. FINAL REPORT EXAM: US Gallbladder RUQ CLINICAL HISTORY: Emesis. COMPARISON: None. FINDINGS: Pancreas: Obscured by bowel gas Liver:Hepatic parenchyma has a normal echotexture. No hepatic masses or intrahepatic biliary dilatati on. Gallbladder: Questionable echogenic stone in the neck of the gallbladder. Gallbladder wall thickness is 0.43 cm. No significant pericholecystic fluid. Browne's sign:Cannot be assessed Portal Vein: Patent. Appropriate directional flow Bile ducts: 0.37 cm common bile duct diameter Right kidney: No hydronephrosis. Right kidney measures 9.1 cm in length. IMPRESSION: 1. This report is in agreement with initial report by [facility]. 2. Questionable gallstone in the neck of the gallbladder. Gallbladder wall is thickened. Browne's sig n cannot be assessed. Consider HIDA scan. Code QA Transcribed Date/Time: 08/11/2020 7:57 AM
--- NOTE | 2020-08-11 08:02 | CT ---
PRELIMINARY REPORT/[facility]/EMERGENCY AFTER HOURS PROCEDURE EXAM: CT Abdomen and Pelvis with Intravenous Contrast CLINICAL HISTORY: Pt presents to ER with complaint of N/V. Pt from [place]. Pt x2 episodes brown emesis. Pt has hx of GI bleed with EGD and peg tube placement. TECHNIQUE: Axial computed tomography images of the abdomen and pelvis with intravenous contrast. CONTRAST: With; ISOVUE 370,100mL COMPARISON: None provided. FINDINGS: LUNG BASES: No basilar airspace consolidation or pleural effusion. LIVER: Unremarkable. GALLBLADDER AND BILE DUCTS: The gallbladder is distended with multiple gallstones. PANCREAS: Unremarkable. SPLEEN: Unremarkable. ADRENAL GLANDS: Unremarkable. KIDNEYS, URETERS, AND BLADDER: Unremarkable. No hydronephrosis or nephrolithiasis. No ureteral or bladder calculi. STOMACH AND BOWEL: There is a large anterior abdominal hernia containing stomach. There is a PEG tube in the body of the stomach. APPENDIX: No CT evidence for appendicitis. PERITONEUM: No free fluid. No free air. LYMPH NODES: No lymphadenopathy. REPRODUCTIVE: Unremarkable as visualized. VASCULATURE: No aortic aneurysm. BONES: No fracture or suspicious osseous abnormality. ABDOMINAL WALL AND SOFT TISSUES: Unremarkable. IMPRESSION: 1. There is a large anterior abdominal hernia containing stomach. 2. There is a PEG tube in the body of the stomach. 3. The gallbladder is distended with multiple gallstones. ELECTRONICALLY SIGNED BY: Carl Castellanos MD Aug 11, 2020 2:12:35 AM CDT This report is intended for review by the ordering physician only, in accordance of law. If you recei ve this report in error, please call [facility] at [phone]. FINAL REPORT EXAM: CT ABDOMEN AND PELVIS HISTORY: Nausea and vomiting. Emesis x2 COMPARISON: 06/02/2020 Procedure: Multiple contiguous axial images were obtained and a CT of the abdomen and pelvis with IV contrast. C oronal reformats were performed. FINDINGS: Lower Chest: Dependent atelectatic changes. Additional areas of chronic scarring. Vessels: Normal caliber aorta. Atherosclerosis Heart: Normal heart size. There are coronary artery calcifications. Small amount of pericardial fluid Abdomen: Portal vein:Patent Gallbladder: Cholelithiasis, without evidence of cholecystitis. Moderate gallbladder distention Liver: within normal limits. Pancreas: within normal limits. Spleen: within normal limits. Adrenals: within normal limits. Kidneys: Hypodensities in the right renal cortex, compatible with cysts. Nonobstructing calculus in t he left renal pelvis. Bilaterally no obstructive uropathy Peritoneum: No ascites or free air, no fluid collection. Bowel: Limited evaluation due to the lack of oral contrast administration. No evidence of bowel obstr uction. Ileocecal junction is unremarkable. Normal caliber appendix. Scattered fecal material in a nondistended, nondilated colon. Mesentery and Retroperitoneum: No enlarged mesenteric or retroperitoneal lymph nodes. Abdominal Wall: There is a ventral abdominal wall hernia containing the body and antrum of the stomac h. Percutaneous gastric feeding tube is identified. Pelvis: Reproductive Organs: Reproductive organs are unremarkable. Pelvis: No mass, lymphadenopathy, free air or free fluid. Bladder: within normal limits. Bones: within normal limits. IMPRESSION: 1. This report is in agreement with initial report by [facility]. 2. Gallbladder distention. Cholelithiasis. 3. Anterior abdominal wall hernia containing a portion of the stomach. Gastric feeding tube is identi fied. Transcribed Date/Time: 08/11/2020 8:06 AM
[2020-08-11] MEDS ORDERED: Iopamidol-370 76% 500 ML 1 ML ONE (09:42)
[2020-08-11] MEDS: Lactated Ringer's 1,000 ML IV SCH ×3 (10:01→20:23)
[2020-08-11 10:43] LABS: SARS-CoV-2 MS2 Positive; SARS-CoV-2 N Gene Negative; SARS-CoV-2 S Gene Negative; SARS-CoV-2 by NAA Not Detected (NotDetected); SARS-CoV-2 orf1ab Negative
[2020-08-11] MEDS ORDERED: levETIRAcetam In NaCl (Iso-Os) 1,000 MG in Premix Bag 1 BAG IVPB SCH (14:00)
[2020-08-11] MEDS: Pantoprazole 40 MG VIAL IVP SCH ×2 (17:03→20:24)
--- NOTE | 2020-08-11 20:28 | CON ---
DATE OF CONSULTATION: 08/11/2020 REASON FOR CONSULTATION: Coffee-grounds emesis. HISTORY OF PRESENT ILLNESS: Juancarlos Cannon is a -[id number] man, who was admitted from the senior living early this morning after report of coffee-grounds emesis. He evidently had two episodes of emesis with coffee-ground appearance last night, which prompted his presentation. Upon arrival, he has been hemodynamically stable with hemoglobin of 11.3, which is an increase from a couple of months ago when it was 8.8. He has not had any further emesis while here. He is currently not complaining of any abdominal pain or nausea. He had a CT of the abdomen and pelvis, which demonstrates multiple gallstones and moderate gallbladder distention and an ultrasound showing some gallbladder thickening and possible stone in the neck, but his LFTs are normal. Notably, the patient has similar presentation back in May of this year with coffee-grounds emesis. EGD on 06/04/2020 demonstrated severe erosive esophagitis with distal esophageal biopsies coming back benign. He also had a loose external bumper on the PEG tube causing some sliding of the tube in and out which Dr. Baron applied some tape to keep it in position. PPI twice daily for eight weeks had been recommended, which has now been completed. PAST MEDICAL HISTORY: Diabetes, type 2; GERD; stroke; dementia; COPD; anemia; PEG tube; tracheostomy with reversal of SOCIAL DIRECTOR shunt. SOCIAL HISTORY: The patient lives at [facility]. He is a former smoker. No drug or alcohol use. FAMILY HISTORY: Noncontributory. ALLERGIES: CODEINE. MEDICATIONS: 1. Norvasc. 2. Docusate. 3. Doxazosin. 4. Lexapro. 5. Keppra. 6. Metformin. 7. Pantoprazole 40 mg twice daily. 8. Meclizine. REVIEW OF SYSTEMS: Unable to obtain full review of systems due to the patient's expressive aphasia. PHYSICAL EXAMINATION: VITAL SIGNS: Temperature 97.7, pulse 88, blood pressure 137/72, and 94% oxygen saturation on room air. GENERAL: No acute distress, lying in bed comfortably. Mental, he has expressive aphasia, but is alert and attempts to answer questions. SKIN: No jaundice. No rashes that were palpable. EYES: No scleral icterus. Extraocular movements intact. ENT: Mucous membranes moist. No oral lesions. LYMPH: No submandibular or supraclavicular lymphadenopathy. Thyroid nontender to palpation. HEART: Regular rate and rhythm. LUNGS: Clear to auscultation bilaterally. ABDOMEN: Bowel sounds present. Soft and nontender to palpation. He has a large ventral abdominal hernia, just to the left of this is his PEG site which looks good. There is tape affixed to the PEG tube externally and it slides easily between 3 cm and 2 cm. There is no exudate or purulence or erythema around the PEG site. EXTREMITIES: No peripheral edema. Vessels, radial pulses 2+ bilaterally. LABORATORY STUDIES: Hemoglobin 11.3, WBC 11.6, and platelets 177. INR 1.1. Sodium 139, potassium 3.8, BUN 25, and creatinine 0.82. Hemoglobin A1c only 5.3%. Total bilirubin 0.4, alkaline phosphatase 89, AST 14, ALT 14, and albumin 3.8. COVID PCR is negative. CT of the abdomen and pelvis demonstrates large anterior abdominal hernia. PEG tube is in place. There are gallstones with moderate gallbladder distention but no inflammation. Abdominal ultrasound shows some mild gallbladder wall thickening and possible stone in the gallbladder neck. ASSESSMENT/PLAN: 1. Coffee-ground emesis. 2. History of erosive esophagitis. 3. Percutaneous endoscopic gastrostomy tube in place. Notably, there has been no further emesis since his arrival. Hemoglobin is low but actually better than it was on recent admission. Given the recurrence of coffee-ground appearance to the emesis, we will proceed with EGD tomorrow. Hopefully, his severe esophagitis will have improved since his May exam, rule out any complication from the PEG tube internal bumper, etc. 4. Gallstones. Note, the normal LFTs. At this point, my impression is that the gallstones are asymptomatic. If the EGD is completely normal and vomiting episodes are recurrent, consider getting a HIDA scan. 5. Further recommendations following EGD tomorrow. Job ID: [id number]
--- NOTE | 2020-08-12 01:39 | CON ---
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 The patient is a resident of an extended care facility from where he was brought to the emergency department for suspicious of coffee-grounds emesis. The patient was treated for distal esophagitis with erosive esophageal ulcers back in May of 2020. He has been on proton-pump inhibitor since that time. I am seeing this patient with the charge nurse at bedside. He is unable to give history, therefore most of the history is obtained from chart review and from speaking with the primary service. PAST MEDICAL HISTORY: Pertinent for left cerebrovascular accident with chronic aphasia, chronic dysphagia, and right hemiplegia. Other pertinent past medical history includes large ventral hernia, type 2 diabetes mellitus, chronic dementia of Alzheimer type, COPD, gastroesophageal reflux disease, and essential hypertension. PAST SURGICAL HISTORY: Pertinent for percutaneous endoscopic gastrostomy tube placement, ROOFING APPRENTICE shunt and a previous tracheostomy. SOCIAL HISTORY: He is a resident of an extended care facility with remote history of tobacco abuse, none current. FAMILY HISTORY: Noncontributory for this patient's age. ALLERGIES: TO CODEINE. MEDICATIONS: Prehospitalization medications include, 1. Amlodipine 10 mg p.o. daily. 2. Cardura 1 mg p.o. daily. 3. Lexapro 10 mg p.o. daily. 4. Keppra 1000 mg p.o. daily. 5. Metformin 1000 mg p.o. daily. 6. Protonix 40 mg p.o. b.i.d. REVIEW OF SYSTEMS: Could not be obtained due to the patient's current mental status and aphasia. PHYSICAL EXAMINATION: VITAL SIGNS: Include blood pressure 137/72, pulse 88, respiratory rate is 18, temperature 97.7 degrees Fahrenheit, and oxygen saturation 94% on room air. HEENT: Pupils are equally round and reactive to light bilaterally. HEART: Reveals regular rate and rhythm. LUNGS: Clear to auscultation bilaterally. Breathing, regular and nonlabored. ABDOMEN: Soft, moderately distended, but no specific tenderness to palpation. He has non-incarcerated freely reducible large ventral hernia medial to the gastrostomy tube placement. Liver and spleen otherwise nonpalpable below costal margin. The patient clearly has no peritoneal signs on examination. Bowel sounds are present in all 4 quadrants. LABORATORY FINDINGS: Include CBC with 11,600 white blood cells, hemoglobin and hematocrit 11.3 and 33.8 respectively. Platelet count is 177,000. Metabolic profile; sodium 139, potassium 3.8, chloride is 101, bicarb is 28, BUN 25, creatinine 0.82, glucose 134, AST and ALT normal at 14 and 14 respectively. Total bilirubin is also normal at 0.4. Alkaline phosphatase is normal at 89. I have personally reviewed all radiographic studies including a CT scan of the abdomen and pelvis, which is remarkable for distended gallbladder with layering tiny stones, which appeared to be nonobstructive. I have also reviewed the abdominal ultrasound, which is remarkable for distended gallbladder and possible stone in the gallbladder neck. The common bile duct is, however, normal in diameter for this patient's age at 5 mm. IMPRESSION: 1. Cholelithiasis. No radiographic or laboratory evidence of cholecystitis. Due to this patient's chronic aphasia and right hemiparesis, clinical examination is really suboptimal. 2. History of left cerebrovascular accident with right hemiparesis, chronic dysphagia, and chronic aphasia. RECOMMENDATIONS: There is no acute surgical indication for this patient at this time. However, we will obtain HIDA scan to better evaluate this biliary disease and make further recommendations as necessary. Thank you again, Dr. Vazquez for allowing me the opportunity to participate in the care of this patient. Job ID: [id number] MTDD
[2020-08-12 06:02] LABS: #Eosinphils 0.1 thou/uL (0.0-0.7); #Monocytes 0.7 thou/uL (0.11-0.59); #Neutrophils 5.9 thou/uL (1.40-6.50); %Basophils 0.4 % (0.0-1.0); %Eosinophils 0.9 % (0.0-10.0); %Lymphocytes 12.8 % (21.0-51.0); %Neutrophils 76.8 % (42.0-75.0); Hemoglobin 10.1 g/dL (14.0-18.0); Mean Corpuscular HGB CONC 32.2 g/dL (32.0-36.0); Mean Corpuscular Hemoglobin 27.4 pg (27.0-31.0); Mean Platelet Volume 11.6 fL (7.4-10.4); Platelet Count 151 thou/uL (130-400); RBC Distribution Width 14.7 % (11.5-14.5); White Blood Cell (WBC) Count 7.7 thou/uL (4.8-10.8)
[2020-08-12 06:16] LABS: Anion Gap 10 mmol/L (10-20); BUN (Urea Nitrogen) 19 mg/dL (8.4-25.7); Calc. Creatinine Clearance 101 mL/min (70-130); Calcium 8.9 mg/dL (7.8-10.44); Carbon Dioxide 28 mmol/L (23-31); Chloride 105 mmol/L (98-107); Estimated GFR-MDRD Greater than 90; Glucose 99 mg/dL (80-115); Potassium 3.6 mmol/L (3.5-5.1); Sodium 139 mmol/L (136-145)
--- NOTE | 2020-08-12 06:36 | PDOC.FM ---
- Subjective Subjective: Mr. Cannon appears to be doing well this morning but this is difficult to assess d/t his severe dysphasia and baseline disorientation. He was unable to correctly identify his name, the year, or his location this morning. He grimaced and endorsed diffuse abdominal pain this morning but he was answering "yes" to every question so it is unclear how reliable this is. Dr. Valente is planning to take him to EGD today but they have been having trouble communicating with his daughter to obtain consent. Dr. Harp also saw the pt yesterday and recommended a HIDA which does not require consent but does require the pt to be fed. - Objective Vital Signs & Weight: Vital Signs (12 hours) Temp Pulse Resp BP Pulse Ox 08/12/20 04:00 97.6 F 105 H 18 143/78 H 93 L 08/11/20 23:31 98.2 F 85 18 128/82 93 L 08/11/20 20:00 97.9 F 97 18 143/76 H 94 L Weight Weight 74.435 kg Result Diagrams: 08/12/20 05:34 08/12/20 05:34 Phys Exam - Physical Examination Constitutional: NAD (awake, alert) Neck: supple Significant crackles b/l, mildly improved from yesterday Cardiovascular: RRR Gastrointestinal: soft, no distention, positive bowel sounds Possibly tender on palpation Musculoskeletal: no edema, pulses present R hemiplegia/hemiparesis, severe dysphasia c/w CVA hx Psychiatric: normal affect Deviation from normal: A&O x0 Skin: no rash Dx/Plan - Plan Plan: Likely Upper GI Bleed - Hgb c/w previous visits and vitals stable - 40 mg IV protonix q12hr - LR @ 100 ml/hr - GI consulted, recommending EGD. Appreciate continued recs NPO for EGD Cholelithiasis - CT abd: GB distended w gallstones; large ventral hernia containing stomach - Abd US: thick GB wall, possible gallstone in neck of GB - Gen surg consulted, recommending HIDA. Appreciate continued recs Hx of CVA - Severe dysphagia, aphasia, and R sided hemiplegia/hemiparesis - OT/PT consulted Dementia - POA - Reportedly, baseline A&O x1 - Today, A&O x0 DM - Continue home meds after GI eval - ACHS checks - Mild SSI - Hypoglycemia protocol HTN - Chronic, stable - Continue home meds after GI eval - Monitor BP Epilepsy - Home Keppra switched to IV - MD aware PCP: Dr. Garzon Code: Full IVF: LR @ 100 mls/hr PPx: Protonix, SCDs Diet: NPO pending EGD Dispo: will admit for further medical management; likely LOS > 48 hrs. Addendum - Attending - Attending Attestation Date/Time: 08/12/20 1123 I personally evaluated the patient and discussed the management with Dr. Alhaji Michael. I agree with the History, Examination, Assessment and Plan documented above with any addition or exceptions noted below.
[2020-08-12] MEDS ORDERED: levETIRAcetam In NaCl (Iso-Os) 1,000 MG in Premix Bag 1 BAG IVPB SCH (09:00)
[2020-08-12] MEDS ORDERED: FLU VACC QS2020-21(65YR UP)/PF 240 MCG/0.7 ML SYRINGE IM ONE (12:00)
[2020-08-12] MEDS ORDERED: PROPOFOL 200 MG/20 ML VIAL ONE (12:15)
[2020-08-12] MEDS ORDERED: Lidocaine 1% PF 5 ML VIAL ONE (12:15)
[2020-08-12] MEDS ORDERED: Morphine 2 MG/ML VIAL ONE (13:03)
[2020-08-12] MEDS ORDERED: Sodium Chloride 0.9% 10 ML ONE (13:04)
[2020-08-12] MEDS: Lactated Ringer's 1,000 ML IV SCH ×2 (13:26→20:20)
--- NOTE | 2020-08-12 14:04 | NM ---
Exam: Nuclear medicine HIDA scan HISTORY: Evaluate for biliary disease. COMPARISON: None TECHNIQUE: Patient was pretreated with 1.5 mcg of CCK intravenously 20 minutes prior to injection of radiopharmaceutical. Patient was administered 5 mCi of technetium 99 mebrofenin intravenously. FINDINGS: There is appropriate what uptake of the radiotracer by the hepatic parenchyma. There is exc retion of the radiotracer into the intrahepatic biliary system. Radiotracer does pass from the common bile duct into multiple small bowel loops. There is no radiotracer localization in the gallbla dder after 1 hour. Patient was administered 2 mg of morphine intravenously. Additional imaging was performed for another hour. There is no evidence of recurrent is localization in the expected region of the gallbladder fossa IMPRESSION: 1. Absent radiotracer localization in the gallbladder lumen after the administration of morphine. The re is scintigraphic evidence of acute cholecystitis.
[2020-08-12] MEDS: Pantoprazole 40 MG VIAL IVP SCH ×2 (16:06→20:20)
[2020-08-12] MEDS: levETIRAcetam In NaCl (Iso-Os) 1,000 MG in Premix Bag 1 BAG IVPB SCH (16:15)
[2020-08-12] MEDS: Piperacillin/Tazobactam 4.5 GM in Sodium Chloride 0.9% 100 ML IVPB SCH ×2 (17:37→23:23)
--- NOTE | 2020-08-12 20:31 | OP ---
DATE OF PROCEDURE: 08/12/2020 PROCEDURE PERFORMED: Esophagogastroduodenoscopy (diagnostic). INDICATION FOR PROCEDURE: Coffee-grounds emesis, recent history of severe reflux esophagitis. DESCRIPTION OF PROCEDURE: After the risks and benefits of the procedure were explained to the patient and the patient's surrogate including risks of bleeding, infection, perforation, reactions to anesthesia, aspiration, and/or pain, informed consent was obtained. The patient was then taken to the endoscopy suite, where he was maneuvered into the left lateral decubitus position, followed by introduction of deep sedation via propofol and anesthesia support. Once adequate sedation was achieved, the standard gastroscope was introduced into the mouth with intubation of the esophagus, stomach, and the proximal small intestines with the findings listed below. The patient tolerated the procedure well with no immediate perioperative complications. On conclusion of the procedure, all equipment was removed from the patient and he was transferred to PACU in satisfactory condition. FINDINGS: Esophagus: Normal-appearing mucosa was seen in the proximal esophagus; however, multiple ulcerations were seen in the mid and distal esophagus that were confluent and occupied the entire circumference of the esophagus from the gastroesophageal junction to approximately 30 cm past the incisors. Proximal to that, there were scattered ulcerations seen contributing to this reflux esophagitis. Initially upon initial evaluation, there was no evidence of active or recent bleeding; however, with manipulation with the scope, the mucosa in the distal esophagus was extremely friable with mild oozing of blood seen upon withdrawal of the scope. However, there was no evidence of mass lesions within the esophagus that may contribute. Stomach: Normal-appearing mucosa was seen in the gastric cardia, fundus, and proximal body. The PEG tube was seen along the greater curvature in the distal gastric body, that was in appropriate position with manipulation of the PEG tube externally, the balloon was able to be brought away from the gastric mucosa with no evidence of ulceration underneath. Otherwise, normal-appearing mucosa was then seen in the antrum and incisura. There was no evidence of erosions, ulcerations, mass lesions, or active/recent bleeding. Duodenum: Normal-appearing mucosa was seen in both the duodenal bulb and second portion of the duodenum. There was no evidence of erosions, ulcerations, mass lesions, or active/recent bleeding. IMPRESSION: 1. LA grade D reflux mediated erosive esophagitis, likely contributing to recent coffee-grounds emesis (very similar to in appearance when compared to prior upper endoscopy in May 2020). 2. Percutaneous endoscopic gastrostomy tube site seen along the greater curvature in appropriate position with no other abnormalities. RECOMMENDATIONS: 1. Would continue to trend his H and H and transfuse as necessary to maintain an H and H of 7/21. 2. Continue to monitor clinically for signs of active GI bleeding. 3. Would continue the patient on pantoprazole IV b.i.d. and will continue him on this regimen until ready for discharge with transfer it to a pill formulation that can be instilled through the PEG tube. 4. Would maintain strict anti-reflux precautions while hospitalized (would sit the patient up in bed during the majority of the day to allow adequate emptying of the stomach, would maintain an upright posture for at least a couple hours after feeds, would avoid feeds within 2 to 3 hours of bedtime, unless otherwise instructed. Would try to maintain at least a 20 to 30 degree upward angle of the patient). 5. Would continue standard PEG tube care (would rotate the PEG tube 720 degrees daily to would refrain from placing any dressings between the external bumper and the skin, flushed with 60 mL of water both before and after feeds, would avoid tightening the external bumper to the skin, but allow for approximately 1 cm distance between the skin in the external bumper). Given no additional findings (actually improved) when compared to his prior upper endoscopy and the severe reflux esophagitis, we will sign off at this time. Please call with any additional questions. Job ID: [id number]
[2020-08-13 06:07] VITALS: BMI 24.6
--- NOTE | 2020-08-13 06:13 | PDOC.FM ---
- Subjective Subjective: Mr. Cannon appears to be doing well and is more chatty this morning although it is difficult to understand what he's saying. His R eye was glued shut with discharge which was easily removed with warm water. His conjunctiva did not appear to be red. His is A&O x1, to self, which is reportedly his baseline. - Objective Vital Signs & Weight: Vital Signs (12 hours) Temp Pulse Resp BP Pulse Ox 08/13/20 04:49 97.9 F 84 18 144/84 H 96 08/13/20 01:00 98.4 F 82 20 136/79 94 L 08/12/20 20:00 95 08/12/20 19:46 97.7 F 89 18 147/84 H 95 Weight Admit Weight 75.001 kg Weight 73.482 kg Result Diagrams: 08/13/20 06:08 08/13/20 06:08 Phys Exam - Physical Examination Constitutional: NAD (sleeping comfortably, easily arousable, head of bed mildly elevated) R eye glued shut with discharge, easily cleaned. Conjunctiva clear Neck: supple Diffuse rhonchi, wet cough Cardiovascular: RRR, no significant murmur Gastrointestinal: soft, no distention, positive bowel sounds Hernia easily reducible Musculoskeletal: no edema, pulses present R hemiplegia/hemiparesis, severe dysphagia and dysphasia Oriented to self Skin: no rash Dx/Plan - Plan Plan: Likely Upper GI Bleed - Hgb stable and c/w previous visits; vitals stable - LR @ 100 ml/hr - EGD showed LA Grade D reflux-mediated erosive esophagitis, improved from EGD in May - GI has provided the following recs and signed off - IV Protonix BID until d/c, then continue orally - Anti-reflux precautions Cholelithiasis with Cholecystitis - CT abd: GB distended w gallstones; large ventral hernia containing stomach - Abd US: thick GB wall, possible gallstone in neck of GB - HIDA scan confirms cholecystitis, therefore pt started on Zosyn - Gen surg consulted, appreciate recs Hx of CVA - Severe dysphagia, aphasia, and R sided hemiplegia/hemiparesis - OT/PT consulted - POWER TR[employer]FORM[employer] INSPECTOR has provided recommendations for his tube feeds Dementia - POA - Reportedly, baseline A&O x1 - Today, A&O x0 DM - Continue home meds after GI eval - ACHS checks - Mild SSI - Hypoglycemia protocol HTN - Chronic, stable - Continue home meds after GI eval - Monitor BP Epilepsy - Home Keppra switched to IV - MD aware PCP: Dr. Garzon Code: Full IVF: LR @ 100 mls/hr PPx: Protonix, SCDs Diet: NPO pending gen surg recs, then tube feeds per POWER TRANSFORMER INSPECTOR recs Dispo: will admit for further medical management; likely LOS > 48 hrs. Addendum - Attending - Attending Attestation Date/Time: 08/13/20 1095 I personally evaluated the patient and discussed the management with Dr. Alhaji Michael. I agree with the History, Examination, Assessment and Plan documented above with any addition or exceptions noted below.
[2020-08-13 06:24] LABS: #Basophils 0.1 thou/uL (0.0-0.2); #Eosinphils 0.2 thou/uL (0.0-0.7); #Lymphocytes 1.2 thou/uL (1.20-3.40); #Monocytes 0.7 thou/uL (0.11-0.59); #Neutrophils 5.1 thou/uL (1.40-6.50); %Basophils 0.8 % (0.0-1.0); %Eosinophils 2.2 % (0.0-10.0); %Lymphocytes 16.5 % (21.0-51.0); %Neutrophils 71.5 % (42.0-75.0); Hemoglobin 10.6 g/dL (14.0-18.0); Mean Corpuscular HGB CONC 32.9 g/dL (32.0-36.0); Mean Corpuscular Hemoglobin 27.8 pg (27.0-31.0); Mean Corpuscular Volume 84.5 fL (78.0-98.0); Mean Platelet Volume 11.4 fL (7.4-10.4); Platelet Count 156 thou/uL (130-400); RBC Distribution Width 14.7 % (11.5-14.5); White Blood Cell (WBC) Count 7.2 thou/uL (4.8-10.8)
[2020-08-13 06:42] LABS: Anion Gap 15 mmol/L (10-20); BUN (Urea Nitrogen) 16 mg/dL (8.4-25.7); Calc. Creatinine Clearance 105 mL/min (70-130); Carbon Dioxide 23 mmol/L (23-31); Chloride 101 mmol/L (98-107); Estimated GFR-MDRD Greater than 90; Glucose 90 mg/dL (80-115); Potassium 3.5 mmol/L (3.5-5.1); Sodium 135 mmol/L (136-145)
[2020-08-13] MEDS: Piperacillin/Tazobactam 4.5 GM in Sodium Chloride 0.9% 100 ML IVPB SCH ×3 (06:52→17:25)
[2020-08-13] MEDS: Lactated Ringer's 1,000 ML IV SCH ×2 (08:31→17:00)
[2020-08-13] MEDS: Pantoprazole 40 MG VIAL IVP SCH ×2 (08:32→19:58)
[2020-08-13] MEDS ORDERED: Albumin 5% 500 ML ONE (10:22)
[2020-08-13] MEDS ORDERED: Midazolam HCl 2 mg/2 ml Vial ONE (10:22)
[2020-08-13] MEDS ORDERED: Fentanyl 100 MCG/2 ML VIAL ONE (10:22)
[2020-08-13] MEDS ORDERED: Dexamethasone 20 MG/5 ML VIAL ONE (11:13)
[2020-08-13] MEDS ORDERED: Rocuronium Bromide 10 MG/ML (10ML VIAL) ONE (11:13)
[2020-08-13] MEDS ORDERED: Ondansetron PF 4 MG/2 ML Vial ONE (11:13)
[2020-08-13] MEDS ORDERED: PHENYLEPHRINE-NS 100 MCG/ML 10 ML SYRINGE ONE (11:13)
[2020-08-13] MEDS ORDERED: PROPOFOL 200 MG/20 ML VIAL ONE (11:13)
[2020-08-13] MEDS ORDERED: Bupivacaine/Epinephrine 0.25% 30 ML VIAL ONE (11:45)
[2020-08-13] MEDS ORDERED: Ketamine 50 MG/ML (10ML VIAL) ONE (12:00)
[2020-08-13] MEDS ORDERED: SUGAMMADEX SODIUM 200 MG/2 ML VIAL ONE (12:31)
--- NOTE | 2020-08-13 13:25 | OP ---
DATE OF PROCEDURE: 08/13/2020 PREOPERATIVE DIAGNOSES: Acute cholecystitis, cholelithiasis. POSTOPERATIVE DIAGNOSES: Acute cholecystitis, cholelithiasis. PROCEDURE PERFORMED: Laparoscopic cholecystectomy. ANESTHESIA: General endotracheal. ESTIMATED BLOOD LOSS: 10 mL. FLUIDS GIVEN: 1000 mL crystalloids and 500 mL of 5% albumin. COUNTS: Sponge and instrument counts were verified as correct x2. COMPLICATIONS: None apparent at the time of operation. INDICATIONS FOR OPERATION: A 70-year-old man, with history of cerebrovascular accident with hemiparesis, chronic dysphagia, and aphasia. The patient was admitted with failure to thrive, nausea and vomiting. Clinical and radiographic examination were consistent with acute cholecystitis with cholelithiasis, for which the patient was brought to the operating room for cholecystectomy. Findings are consistent with dilated gangrenous gallbladder in the usual anatomic location, completely encased by omental adhesions. DESCRIPTION OF PROCEDURE: Informed consent obtained from the patient's daughter. The patient was brought to the operating room and placed in supine position. Following general anesthesia, abdomen was sterilely prepped and draped in usual fashion. The skin below the umbilicus was infiltrated with 0.25% Marcaine with epinephrine. A small curvilinear infraumbilical incision was made using an 11 scalpel. Umbilical stalk was grasped with Tejinder and elevated. Veress needle was inserted through the incision and placed in the peritoneal cavity, through which the abdomen was insufflated with 3 L of CO2 gas. Intraabdominal pressure noted at 2 mmHg. Following abdominal insufflation, Veress needle was removed and a 5 mm trocar introduced using a Visiport under laparoscopy. Laparoscopy confirmed proper placement of the port, no injuries to underlying structures. Additional laparoscopy revealed right upper quadrant completely encased by omental adhesions obscuring the liver. Under direct laparoscopy, a 12 mm epigastric and two 5 mm right lateral subcostal ports were placed after the overlying skin infiltrated with 0.25% Marcaine with epinephrine and appropriate incision was made. The patient was placed in the reverse Trendelenburg position, rotated to his left. I introduced a [place] dissector with cautery, using this to take down omental adhesions to expose the fundus of this markedly dilated gallbladder. I then introduced a Broadcast.mobiige grasper through the right lateral subcostal port, attempted to grasp the gallbladder. It was markedly distended and taut. I decided to decompress the gallbladder using manipulation. I achieved this. I used an Endo suction catheter with cautery to perform a cholecystotomy at the dome of the gallbladder, evacuating excess black bile. A Prestige grasper was then applied at the fundus of the gallbladder, which was elevated cephalad. Omental adhesions were bluntly dissected off the remainder of the gallbladder. A second Prestige grasper introduced through the right medial subcostal port, grasping the Jl pouch, which was retracted laterally. I opened the peritoneum of the gallbladder at the infundibulum, and the cystic duct and artery were individually dissected free from surrounding structures. Critical view of the triangle was obtained. The cystic duct was divided between clips, applying 2 clips proximally and 1 clip at the junction of the cystic duct and gallbladder. Cystic artery divided between clips in a similar fashion. The gallbladder itself was removed from the liver bed and delivered off the abdominal cavity using an EndoCatch. Operative site was irrigated with saline. There was some venous blood from the gallbladder fossa. Hemostasis was readily achieved using Zenon. Finding no other pathology, laparoscopy was terminated. Fascia of the epigastric port was closed using 0 Vicryl suture and Endo-closure device under laparoscopy. The abdomen was desufflated. All ports and instruments were removed and accounted for. Skin incisions were closed using 4-0 Monocryl suture in subcuticular fashion. Dermabond was applied over incisional closure. The patient tolerated the operation without any apparent complication and was returned to the recovery room in satisfactory condition. Job ID: [id number]
[2020-08-13] MEDS: levETIRAcetam In NaCl (Iso-Os) 1,000 MG in Premix Bag 1 BAG IVPB SCH (16:59)
[2020-08-14] MEDS: Piperacillin/Tazobactam 4.5 GM in Sodium Chloride 0.9% 100 ML IVPB SCH ×4 (00:26→17:38)
[2020-08-14] MEDS: Lactated Ringer's 1,000 ML IV SCH ×2 (00:28→13:59)
--- NOTE | 2020-08-14 00:52 | PRG ---
DATE OF SERVICE: 08/13/2020 SUBJECTIVE: This is a 70-year-old male, who is postop day 0, status post laparoscopic cholecystectomy by Dr. Harp. Upon my evaluation this evening, the patient vocalized no complaints. OBJECTIVE: VITAL SIGNS: Reviewed and as documented in the electronic medical record. T-max 99.1. The patient has been mildly tachycardic with heart rate in the high 90s, low 100s. GENERAL: Resting in bed, in no acute distress. Appears to be sleeping and appears comfortable. ASSESSMENT AND PLAN: Continue supportive care as ordered. A.m. labs. Pain management per primary. Job ID: [id number]
--- NOTE | 2020-08-14 06:07 | PDOC.FM ---
- Subjective Subjective: Mr. Cannon is endorsing pain this morning both while resting and on palpation of RUQ. His laparoscopic scars have no erythema/edema/discharge. - Objective Vital Signs & Weight: Vital Signs (12 hours) Temp Pulse Resp BP Pulse Ox 08/14/20 04:00 98.5 F 101 H 18 149/77 H 98 08/14/20 02:20 108 H 16 100 08/14/20 00:00 98.5 F 99 18 137/72 96 08/13/20 22:17 102 H 16 96 08/13/20 20:05 105 H 18 95 08/13/20 19:00 99.1 F 99 18 124/87 97 Weight Admit Weight 75.001 kg Weight 75.523 kg Result Diagrams: 08/14/20 05:39 08/14/20 05:39 Phys Exam - Physical Examination Constitutional: NAD (but does endorse in pain) Awake, alert Neck: supple Respiratory: clear to auscultation bilateral No cough this morning on deep inspiration today Cardiovascular: RRR, no significant murmur Gastrointestinal: soft, no distention, positive bowel sounds Tender to palpation Musculoskeletal: no edema, pulses present R sided dominic-paresis/-plegia, severe dysphagia and dysphasia Psychiatric: normal affect Dx/Plan - Plan Plan: Likely Upper GI Bleed - Hgb stable and c/w previous visits; vitals stable - LR @ 100 ml/hr - EGD showed LA Grade D reflux-mediated erosive esophagitis, improved from EGD in May - GI has provided the following recs and signed off IV Protonix BID until d/c, then continue orally Anti-reflux precautions - Tube feeds have been started per [employer] recs Cholelithiasis with Cholecystitis - On Zosyn - Gen surg consulted, appreciate continued recs Cholecystectomy on 08/13 - Fentanyl and Tylenol for pain - Codeine allergy limits pain control options Hx of CVA - Severe dysphagia, aphasia, and R sided hemiplegia/hemiparesis - OT/PT consulted - Tube feeds have been started per [employer] recs Hypokalemia, Hypomagnesemia - K 2.9, Mg 1.4 - Replace - Phos ordered - Continue to monitor with am BMP and Mg Dementia - POA - Reportedly, baseline A&O x1 - Today, A&O x0 DM - Continue home meds after GI eval - ACHS checks - Mild SSI - Hypoglycemia protocol HTN - Chronic, stable - Continue home meds after GI eval - Monitor BP Epilepsy - Home Keppra switched to IV - MD aware PCP: Dr. Garzon Code: Full IVF: LR @ 100 mls/hr PPx: Protonix, SCDs Diet: Tube feeds per [employer] WARDEN recs Dispo: Admit to medical floor. Discharge pending appropriate recovery from cholecystectomy and clearance by general surgery. Suspect LOS <48h. Addendum - Attending - Attending Attestation Date/Time: 08/14/20 9538 I personally evaluated the patient and discussed the management with Dr. Alhaji Michael. I agree with the History, Examination, Assessment and Plan documented above with any addition or exceptions noted below.
[2020-08-14 06:14] LABS: #Lymphocytes 0.4 thou/uL (1.20-3.40); #Monocytes 0.5 thou/uL (0.11-0.59); #Neutrophils 5.3 thou/uL (1.40-6.50); %Eosinophils 0.3 % (0.0-10.0); %Lymphocytes 6.9 % (21.0-51.0); %Monocytes 8.5 % (0.0-10.0); %Neutrophils 84.3 % (42.0-75.0); Mean Corpuscular HGB CONC 33.5 g/dL (32.0-36.0); Mean Corpuscular Volume 83.6 fL (78.0-98.0); Mean Platelet Volume 11.6 fL (7.4-10.4); Platelet Count 147 thou/uL (130-400); Red Blood Cell (RBC) Count 3.22 mill/uL (4.70-6.10); White Blood Cell (WBC) Count 6.3 thou/uL (4.8-10.8)
[2020-08-14 06:27] LABS: Anion Gap 12 mmol/L (10-20); BUN (Urea Nitrogen) 15 mg/dL (8.4-25.7); Calc. Creatinine Clearance 79 mL/min (70-130); Calcium 8.6 mg/dL (7.8-10.44); Carbon Dioxide 27 mmol/L (23-31); Chloride 103 mmol/L (98-107); Estimated GFR-MDRD 78; Glucose 136 mg/dL (80-115); Sodium 139 mmol/L (136-145)
[2020-08-14 06:39] LABS: Potassium 2.9 mmol/L (3.5-5.1)
[2020-08-14 07:28] VITALS: BP 139/72; TEMP 98.2
[2020-08-14] MEDS ORDERED: Potassium Chloride 40 MEQ in Premix Bag 1 BAG IVPB SCH (07:30)
[2020-08-14] MEDS ORDERED: Magnesium 2 GM/50 ML 2 GM in Premix Bag 1 BAG IVPB SCH (08:30)
[2020-08-14] MEDS: Pantoprazole 40 MG VIAL IVP SCH (08:41)
[2020-08-14] MEDS ORDERED: Fentanyl 100 MCG/2 ML VIAL SLOW IVP SCH (08:45)
[2020-08-14] MEDS: Potassium Chloride 20 MEQ in Premix Bag 1 BAG IVPB SCH ×2 (08:50→11:24)
[2020-08-14] MEDS ORDERED: Acetaminophen 325 MG TAB PO PRN (09:00)
[2020-08-14] MEDS ORDERED: Fentanyl 100 MCG/2 ML VIAL SLOW IVP PRN (09:02)
[2020-08-14 09:56] LABS: Phosphorus 2.8 mg/dL (2.3-4.7)
[2020-08-14 10:00] LABS: ALT (SGPT) 22 U/L (8-55); AST (SGOT) 25 U/L (5-34); Albumin 3.2 g/dL (3.4-4.8); Alkaline Phosphatase 58 U/L (40-110); Bilirubin, Direct 0.3 mg/dL (0.1-0.3); Bilirubin, Total 0.5 mg/dL (0.2-1.2); Protein, Total 5.8 g/dL (5.8-8.1)
[2020-08-14] MEDS ORDERED: Naloxone HCl 0.4 mg/ml Vial IV SCH (12:45)
[2020-08-14] MEDS ORDERED: Naloxone HCl 0.4 mg/ml Vial IV PRN (13:40)
[2020-08-14] MEDS: levETIRAcetam In NaCl (Iso-Os) 1,000 MG in Premix Bag 1 BAG IVPB SCH (13:59)
[2020-08-14 14:45] LABS: Potassium 3.2 mmol/L (3.5-5.1)
[2020-08-14] MEDS ORDERED: Potassium Chloride 20 MEQ TAB PO SCH (16:15)
--- NOTE | 2020-08-15 07:06 | PQF ---
CLINICAL DOCUMENTATION CLARIFICATION FORM: Dear : Micheal Jenkins Date / Time: 08/15/2020 0706 Please exercise your independent, professional judgment in responding to the clarification form. Clinical indicators are provided on the bottom of this form for your review In your clinical opinion based on clinical findings below, can you please identify the etiology of GI bleeding if due to: Please check appropriate box(es): [ ] GERD with Esophagitis [ ] Acute Cholecystitis with Cholelithiasis [ x] Other diagnosis reflux mediated erosive esophagitis [ ] Unable to determine Physician Signature: Date/Time: For continuity of documentation, please document condition throughout progress notes and discharge summary. Thank You. To be completed by CDI/Coding staff for physician review: Present Clinical Indicators - Signs / Symptoms / Labs Results and Location in Medical Record [X] RBC 4.06, Hgb 11.3, Hct 33.8 Laboratory 08/11 [X] BP 139/81, Pulse 96, Resp 20, Temp 98.4 Vital isgns 08/11 [X] CT Abdomen Impression: Cholelithiaisis Imaging 08/11 Dr Pemberton [X] Bloody emesis H&P p1 08/11 Dr Barros [X] 2 episodes of brown colored emesis H&P p1 08/11 Dr Barros [X] Hx of multiple GI bleeds H&P p4 08/11 Dr Barros [X] EGD Impression: LA grade D reflux mediated erosive esophagitis, likely contributing to recent coffee-grounds emesis Operative report Dr Troncoso 08/12 [X] Acute cholecystitis, cholelithiaisis Operative report Dr Harp 08/13 Present Risk Factors Results and Location in Medical Record [X] 70 year-old Male H&P p1 08/11 Dr Barros [X] Hx of CVA with residual of dysphagia, aphasia, hemiparesis H&P p1 08/11 Dr Barros [X] s/p PEG H&P p1 08/11 Dr Barros [X] DM H&P p1 08/11 Dr Barros [X] GERD ED Notes 08/11 [X] Former Smoker ED Notes 08/11 Present Treatments Results and Location in Medical Record [X] IVF NS 1L DEC 24 [X] IV Zosyn 4.5 gm DEC 24 [X] IV Protonix 40 mg DEC 24 [X] IV Lactated Ringers 1L MAR 08/11 [X] CT Abdomen Imaging 08/11 Dr Pemberton [X] Abdominal Ultrasound Imaging 08/11 Dr Pemberton [X] EGD Operative report Dr Troncoso 08/12 [X] Lap Cholecystectomy Operative report Dr Harp 08/13 [X] Gastroenterology Consult Consult 08/11 CDS/[employer]auty [employer] Instructor Signature: Leilani Jackson Dianemonaeaaliyah Phone #: ext [phone] Date/Time: 08/15/2020 0706 This is a permanent part of the Medical Record [facility]
--- NOTE | 2020-08-15 20:46 | DIS ---
DATE OF ADMISSION: 08/11/2020 DATE OF DISCHARGE: 08/14/2020 RESIDENT: Caitlin Vazquez MD ADMITTING ATTENDING: Micheal Kelly MD DISCHARGE ATTENDING: Micheal Kelly MD CONSULTS: 1. GI, Dr. Valente (08/11). 2. General Surgery, Dr. Harp (08/11). PROCEDURES: HIDA scan (08/12), EGD (08/12), cholecystectomy (08/13). PRIMARY DIAGNOSES: 1. Upper gastrointestinal bleed secondary to erosive esophagitis and peptic ulcer disease. 2. Acute cholecystitis. SECONDARY DIAGNOSES: 1. History of previous gastrointestinal bleed. 2. Cerebrovascular accident with right-sided deficits and aphasia. 3. Vascular dementia. 4. Hypertension. 5. Type 2 diabetes. 6. Chronic obstructive pulmonary disease. 7. Epilepsy. DISCHARGE MEDICATIONS: 1. Amlodipine 10 mg per PEG tube daily. 2. Levetiracetam 10 mL per PEG tube daily. 3. Lexapro 10 mg per PEG tube daily. 4. Doxazosin 1 mg per PEG tube daily. 5. Colace 100 mg per PEG tube daily. 6. Metformin 1000 mg per PEG tube . 7. Chlorpheniramine 4 mg per PEG tube q.6 h. p.r.n. 8. Acetaminophen 10 mL per PEG tube q.4 h. p.r.n. 9. Meclizine 25 mg per PEG tube q.12 h. p.r.n. 10. Pantoprazole 40 mg p.o. b.i.d. 11. Tramadol 50 mg p.o. q.6 h. p.r.n. DISCONTINUED MEDICATIONS: None. HISTORY OF PRESENT ILLNESS/HOSPITAL COURSE: This is a 70-year-old male with past medical history of CVA resulting in aphasia, severe dysphagia, and right-sided hemiplegia/hemiparesis. He has a history of multiple GI bleeds with an EGD in May of this year that showed erosive esophagitis and ulcers in the distal esophagus. He presented with 2 episodes of hematemesis from [facility]. He was taking a PPI b.i.d. for 8 weeks as previously instructed. On arrival, his hemoglobin was 11.6, consistent with previous admission. He was started on IV Protonix in the ED. His vitals were normal and stable. The patient has a PEG tube placed due to the severe dysphagia, but was made n.p.o. pending GI evaluation. Dr. Valente evaluated him and felt to be recurrence of coffee-grounds emesis, warranted a repeat EGD, despite having had one 2 months ago. On arrival, abdominal ultrasound showed a questionable gallstone in the neck of the gallbladder as well as a thickened gallbladder wall. Due to the patient's mental and physical limitations, Browne's sign could not be assessed. Abdominal CT confirmed gallbladder distention and cholelithiasis. It also commented on a large ventral hernia consisting a portion of the stomach. Due to the gallstones and thickened gallbladder wall, General Surgery was consulted and recommended a HIDA scan. HIDA scan revealed absent radiotracer in the gallbladder lumen indicative of acute cholecystitis, but Dr. Harp elected to take him to surgery for laparoscopic cholecystectomy. There were no complications during the surgery and pathology of the gallbladder showed chronic and acute cholecystitis as well as cholelithiasis without concern for dysplasia or malignancy. The patient was tolerating his tube feedings well and his incisions sites did not have erythema, edema, discharge. As such, [facility]. DISPOSITION: Stable. DISCHARGE INSTRUCTIONS: 1. Location: [facility]. 2. Diet: Tube feeding as recommended by speech pathology. 3. Activity: As tolerated. 4. Followup: The patient is recommended to follow up with his PCP within 7 to 10 days. A followup appointment with General surgery was also made for 08/28/2020. Job ID: [id number]
== END 2020-08-14 18:44 | DRG 356 ==
LOC: ERS 00:38 → T4-A 04:12
PROVIDERS: ADMIT Student in an Organized Health Care Education/Training Program; ATTEND Student in an Organized Health Care Education/Training Program
PROC: 0DJ08ZZ Inspection of Upper Intestinal Tract, Via Natural or Artificial Opening Endoscopic (ICD-10-PCS; principal; 2020-08-12)
PROC: 0FT44ZZ Resection of Gallbladder, Percutaneous Endoscopic Approach (ICD-10-PCS; 2020-08-13)
DX: K21.01 Gastro-esophageal reflux disease with esophagitis, with bleeding (principal); K22.11 Ulcer of esophagus with bleeding; I69.351 Hemiplegia and hemiparesis following cerebral infarction affecting right dominant side; K80.00 Calculus of gallbladder with acute cholecystitis without obstruction; R13.10 Dysphagia, unspecified; E11.9 Type 2 diabetes mellitus without complications; I10 Essential (primary) hypertension; G40.909 Epilepsy, unspecified, not intractable, without status epilepticus; G30.9 Alzheimer's disease, unspecified; J44.9 Chronic obstructive pulmonary disease, unspecified; K43.9 Ventral hernia without obstruction or gangrene; Z20.828 Contact with and (suspected) exposure to other viral communicable diseases; E87.6 Hypokalemia; E83.42 Hypomagnesemia; F01.50 Vascular dementia, unspecified severity, without behavioral disturbance, psychotic disturbance, mood disturbance, and anxiety; I69.318 Other symptoms and signs involving cognitive functions following cerebral infarction; I69.391 Dysphagia following cerebral infarction; I69.320 Aphasia following cerebral infarction; Z88.5 Allergy status to narcotic agent; Z79.899 Other long term (current) drug therapy; Z79.84 Long term (current) use of oral hypoglycemic drugs; Z87.891 Personal history of nicotine dependence; Z93.1 Gastrostomy status
CPT/HCPCS: 36415; 36416; 74177; 76705; 78227; 80048; 80053; 80076; 83036; 83735; 84100; 85025; 85610; 85730; 86850; 86900; 86901; 87635; 88304; 96374; 96375; A9537; C9113; J1100; J1953; J2250; J2270; J2405; J2543; J2704; J3010; J3475; J3480; J3490; J7620; P9045; Q9967; U0003

== ENCOUNTER 2020-11-16 07:28 | Inpatient (IN) | payer MEDICARE, MEDICAID ==
[2020-11-16] MEDS ORDERED: Ondansetron PF 4 MG/2 ML Vial ONE (08:33)
[2020-11-16] MEDS ORDERED: Piperacillin/Tazobactam 4.5 GM VIAL ONE (09:00)
[2020-11-16 09:09] LABS: PTT 40.5 sec (22.9-36.1); Prothrombin Time 13.6 sec (12.0-14.7)
[2020-11-16 09:14] LABS: ALT (SGPT) 16 U/L (8-55); AST (SGOT) 18 U/L (5-34); Alkaline Phosphatase 103 U/L (40-110); Anion Gap 16 mmol/L (10-20); BUN (Urea Nitrogen) 26 mg/dL (8.4-25.7); Bilirubin, Total 0.3 mg/dL (0.2-1.2); Calc. Creatinine Clearance 0 mL/min (70-130); Calcium 9.6 mg/dL (7.8-10.44); Carbon Dioxide 27 mmol/L (23-31); Chloride 102 mmol/L (98-107); Globulin 3.9 g/dL (2.4-3.5); Glucose 155 mg/dL (80-115); Lipase 20 U/L (8-78); Potassium 3.8 mmol/L (3.5-5.1); Protein, Total 7.9 g/dL (5.8-8.1); Sodium 141 mmol/L (136-145)
[2020-11-16 09:32] LABS: #Lymphocytes 0.4 thou/uL (1.20-3.40); #Monocytes 0.7 thou/uL (0.11-0.59); #Neutrophils 5.5 thou/uL (1.40-6.50); %Eosinophils 0.1 % (0.0-10.0); %Lymphocytes 5.8 % (21.0-51.0); Hemoglobin 11.2 g/dL (14.0-18.0); Large Platelets SLIGHT; MDiff Complete? YES; Mean Corpuscular HGB CONC 32.8 g/dL (32.0-36.0); Mean Corpuscular Hemoglobin 25.8 pg (27.0-31.0); Mean Corpuscular Volume 78.6 fL (78.0-98.0); Mean Platelet Volume 9.5 fL (7.4-10.4); Platelet Count 134 thou/uL (130-400); RBC Distribution Width 16.9 % (11.5-14.5); Red Blood Cell (RBC) Count 4.35 mill/uL (4.70-6.10); White Blood Cell (WBC) Count 6.7 thou/uL (4.8-10.8)
[2020-11-16 09:56] LABS: Actual Bicarbonate (HCO3v) 27 mEq/L (22-28); Analyzer IN Cardio ER; Base Excess 3.2 mEq/L (-2.0 to +3.0); Calcium, Ionized (venous) 1.11 mmol/L (1.16-1.32); Chloride (VBG) 102 mmol/L (98-106); Hemoglobin (Hb) 12.1 g/dL (12.6-17.4); Potassium (VBG) 3.71 mmol/L (3.70-5.30); Sodium 139.1 mmol/L (133-146); pH (venous) 7.45 (7.32-7.43)
[2020-11-16] MEDS ORDERED: Vancomycin 1 GM/200 ML BAG ONE (10:03)
[2020-11-16] MEDS ORDERED: Iopamidol-370 76% 500 ML 1 ML ONE (10:09)
[2020-11-16 10:11] LABS: Bacteria/HPF None Seen HPF (None Seen); Bilirubin Negative (Negative); Blood, Urine Negative (Negative); Clarity Clear (Clear); Glucose, Urine (Dipstick) Normal (Negative); Ketone, Urine Negative (Negative); Leukocyte Negative Leu/uL (Negative); Nitrite Negative (Negative); Protein, Urine (Dipstick) 50 mg/dL (Neg-Trace); RBC/HPF 0-3 HPF (0-3); Specific Gravity, Urine 1.028 (1.002-1.036); Squamous Epithelial None Seen HPF (0-3); Urobilinogen Normal mg/dL (Less than 2); WBC/HPF 0-3 HPF (0-3); pH, Urine 6.5 (5.0-9.0)
[2020-11-16 10:58] LABS: SARS-CoV-2 NAA Rapid Test DETECTED (NotDetected)
[2020-11-16] MEDS ORDERED: Albuterol Sulfate 2.5 mg/3 ml Neb NEB PRN (13:58)
[2020-11-16] MEDS ORDERED: Enoxaparin Sodium 40 MG/0.4 ML SYRINGE SC SCH ×2 (14:00→20:00)
[2020-11-16] MEDS ORDERED: Sodium Chloride 0.9% 1,000 ML IV SCH (16:30)
[2020-11-16 17:32] LABS: #Lymphocytes 0.6 thou/uL (1.20-3.40); #Neutrophils 6.2 thou/uL (1.40-6.50); %Basophils 0.1 % (0.0-1.0); %Eosinophils 0.1 % (0.0-10.0); %Lymphocytes 7.2 % (21.0-51.0); %Monocytes 12.5 % (0.0-10.0); %Neutrophils 80.1 % (42.0-75.0); Hemoglobin 10.4 g/dL (14.0-18.0); Mean Corpuscular HGB CONC 32.8 g/dL (32.0-36.0); Mean Corpuscular Hemoglobin 26.1 pg (27.0-31.0); Mean Corpuscular Volume 79.7 fL (78.0-98.0); RBC Distribution Width 17.1 % (11.5-14.5); Red Blood Cell (RBC) Count 3.99 mill/uL (4.70-6.10); White Blood Cell (WBC) Count 7.7 thou/uL (4.8-10.8)
[2020-11-16 17:45] LABS: Large Platelets SLIGHT; MDiff Complete? YES; Mean Platelet Volume 12.4 fL (7.4-10.4); Ovalocytes SLIGHT = 2-5 cells (100X) (0-1/hpf); Platelet Count 119 thou/uL (130-400); Platelet Morphology Comment Appears Decreased; Polychromasia SLIGHT = 2-3 cells (100X) (0-2/hpf); Tear Drops SLIGHT = 2-5 cells (100X) (0-1/hpf)
[2020-11-16] MEDS: Piperacillin/Tazobactam 3.375 GM in Sodium Chloride 0.9% 100 ML IVPB SCH (20:10)
[2020-11-16 21:55] LABS: #Lymphocytes 0.6 thou/uL (1.20-3.40); #Monocytes 0.9 thou/uL (0.11-0.59); #Neutrophils 7.2 thou/uL (1.40-6.50); %Basophils 0.1 % (0.0-1.0); %Eosinophils 0.1 % (0.0-10.0); %Monocytes 10.6 % (0.0-10.0); %Neutrophils 82.3 % (42.0-75.0); Hemoglobin 10.4 g/dL (14.0-18.0); Mean Corpuscular HGB CONC 32.7 g/dL (32.0-36.0); Mean Corpuscular Hemoglobin 25.9 pg (27.0-31.0); Mean Corpuscular Volume 79.3 fL (78.0-98.0); Platelet Count 124 thou/uL (130-400); Red Blood Cell (RBC) Count 4.03 mill/uL (4.70-6.10); White Blood Cell (WBC) Count 8.7 thou/uL (4.8-10.8)
[2020-11-17] MEDS: Piperacillin/Tazobactam 3.375 GM in Sodium Chloride 0.9% 100 ML IVPB SCH ×5 (00:12→23:54)
[2020-11-17 01:15] LABS: #Lymphocytes 0.5 thou/uL (1.20-3.40); #Monocytes 0.6 thou/uL (0.11-0.59); #Neutrophils 9.2 thou/uL (1.40-6.50); %Lymphocytes 4.7 % (21.0-51.0); %Monocytes 5.9 % (0.0-10.0); %Neutrophils 89.4 % (42.0-75.0); Hemoglobin 10.2 g/dL (14.0-18.0); Mean Corpuscular HGB CONC 31.3 g/dL (32.0-36.0); Mean Corpuscular Hemoglobin 24.6 pg (27.0-31.0); Mean Corpuscular Volume 78.7 fL (78.0-98.0); Mean Platelet Volume 12.5 fL (7.4-10.4); Platelet Count 132 thou/uL (130-400); RBC Distribution Width 17.2 % (11.5-14.5); Red Blood Cell (RBC) Count 4.16 mill/uL (4.70-6.10); White Blood Cell (WBC) Count 10.3 thou/uL (4.8-10.8)
[2020-11-17] MEDS: Ondansetron PF 4 MG/2 ML Vial IVP PRN (04:20)
[2020-11-17] MEDS ORDERED: Pantoprazole 40 MG VIAL IVP SCH ×3 (05:30→21:00)
[2020-11-17] MEDS: Sodium Chloride 0.9% 1,000 ML IV SCH ×3 (05:44→17:17)
[2020-11-17 06:35] LABS: Hemoglobin 9.9 g/dL (14.0-18.0); Mean Corpuscular HGB CONC 30.8 g/dL (32.0-36.0); Mean Corpuscular Hemoglobin 24.5 pg (27.0-31.0); Mean Corpuscular Volume 79.5 fL (78.0-98.0); Platelet Count 134 thou/uL (130-400); RBC Distribution Width 17.3 % (11.5-14.5); Red Blood Cell (RBC) Count 4.03 mill/uL (4.70-6.10); White Blood Cell (WBC) Count 13.9 thou/uL (4.8-10.8)
[2020-11-17 07:13] LABS: Mean Platelet Volume 10.4 fL (7.4-10.4)
[2020-11-17 08:11] LABS: Band 26 % (5-11); Hypochromia SLIGHT = 6-15 cells (100X) (0-5/hpf); MDiff Complete? YES; Monocytes 12 % (0-10); Neutrophil 62 % (42-75); Platelet Morphology Comment Appears Adequate; Polychromasia SLIGHT = 2-3 cells (100X) (0-2/hpf)
[2020-11-17] MEDS: Ascorbic Acid 500 mg Chewable Tablet PO SCH (08:38)
[2020-11-17] MEDS: Cholecalciferol 1,000 UNITS (25 MCG) TAB PO SCH (08:38)
[2020-11-17] MEDS: Zinc Sulfate 220 MG CAP PO SCH (08:39)
[2020-11-17] MEDS ORDERED: Pantoprazole 80 MG in Sodium Chloride 0.9% 100 ML IVPB SCH (08:45)
[2020-11-17] MEDS ORDERED: Dexamethasone 4 mg/ml Vial SLOW IVP SCH (09:00)
[2020-11-17] MEDS ORDERED: Enoxaparin Sodium 40 MG/0.4 ML SYRINGE SC SCH (09:00)
[2020-11-17 09:22] LABS: Hemoglobin A1c 5.2 % (4.0-6.0)
[2020-11-17] MEDS: Pantoprazole 80 MG, Admixture Fee 1 EACH in Sodium Chloride 0.9% 100 ML IVPB SCH ×2 (11:43→21:57)
[2020-11-17 12:13] VITALS: BMI 24.3
[2020-11-17] MEDS ORDERED: FLU VACC QS2020-21(6MOS UP)/PF 60 MCG/0.5 ML SYRINGE IM ONE (17:45)
[2020-11-18] MEDS: Sodium Chloride 0.9% 1,000 ML IV SCH ×3 (03:44→23:47)
[2020-11-18] MEDS: Piperacillin/Tazobactam 3.375 GM in Sodium Chloride 0.9% 100 ML IVPB SCH ×4 (05:19→23:47)
[2020-11-18 05:44] LABS: Anion Gap 11 mmol/L (10-20); BUN (Urea Nitrogen) 25 mg/dL (8.4-25.7); Calc. Creatinine Clearance 84 mL/min (70-130); Calcium 8.1 mg/dL (7.8-10.44); Carbon Dioxide 26 mmol/L (23-31); Chloride 113 mmol/L (98-107); Glucose 116 mg/dL (80-115); Magnesium 1.6 mg/dL (1.6-2.6); Potassium 3.5 mmol/L (3.5-5.1); Sodium 146 mmol/L (136-145)
[2020-11-18 05:51] LABS: #Lymphocytes 0.5 thou/uL (1.20-3.40); #Monocytes 0.6 thou/uL (0.11-0.59); #Neutrophils 6.5 thou/uL (1.40-6.50); %Lymphocytes 6.5 % (21.0-51.0); %Monocytes 8.5 % (0.0-10.0); %Neutrophils 85.1 % (42.0-75.0); Hemoglobin 7.7 g/dL (14.0-18.0); Large Platelets SLIGHT; MDiff Complete? YES; Mean Corpuscular HGB CONC 31.8 g/dL (32.0-36.0); Mean Corpuscular Hemoglobin 25.6 pg (27.0-31.0); Mean Corpuscular Volume 80.5 fL (78.0-98.0); Mean Platelet Volume 12.3 fL (7.4-10.4); Platelet Count 118 thou/uL (130-400); Platelet Morphology Comment Appears Decreased; Red Blood Cell (RBC) Count 3.01 mill/uL (4.70-6.10); White Blood Cell (WBC) Count 7.6 thou/uL (4.8-10.8)
[2020-11-18] MEDS: Ascorbic Acid 500 mg Chewable Tablet PO SCH (07:29)
[2020-11-18] MEDS: Zinc Sulfate 220 MG CAP PO SCH (07:30)
[2020-11-18] MEDS: Cholecalciferol 1,000 UNITS (25 MCG) TAB PO SCH (07:30)
[2020-11-18] MEDS: Pantoprazole 80 MG, Admixture Fee 1 EACH in Sodium Chloride 0.9% 100 ML IVPB SCH ×2 (08:50→14:41)
[2020-11-18] MEDS: Ondansetron PF 4 MG/2 ML Vial IVP PRN ×2 (09:05→20:51)
[2020-11-18] MEDS ORDERED: REMDESIVIR (EUA) 200 MG in Sodium Chloride 0.9% 250 ML 210 ML IV SCH (11:00)
[2020-11-18] MEDS ORDERED: Magnesium Sulfate 4 GM in Sodium Chloride 0.9% 250 ML 250 ML IVPB SCH (21:30)
[2020-11-18] MEDS ORDERED: Diltiazem 125 MG in Sodium Chloride 0.9% 100 ML IVPB SCH ×2 (22:15→23:59)
[2020-11-19 00:54] LABS: #Lymphocytes 0.4 thou/uL (1.20-3.40); #Monocytes 0.5 thou/uL (0.11-0.59); #Neutrophils 4.5 thou/uL (1.40-6.50); %Basophils 0.2 % (0.0-1.0); %Lymphocytes 7.9 % (21.0-51.0); %Monocytes 8.7 % (0.0-10.0); %Neutrophils 83.3 % (42.0-75.0); Hemoglobin 8.5 g/dL (14.0-18.0); Mean Corpuscular Hemoglobin 26.8 pg (27.0-31.0); Mean Corpuscular Volume 81.1 fL (78.0-98.0); Platelet Count 109 thou/uL (130-400); RBC Distribution Width 17.2 % (11.5-14.5); Red Blood Cell (RBC) Count 3.16 mill/uL (4.70-6.10); White Blood Cell (WBC) Count 5.4 thou/uL (4.8-10.8)
[2020-11-19] MEDS ORDERED: Metoprolol Tartrate 5 MG/5 ML VIAL ONE (02:47)
[2020-11-19 07:19] LABS: Anion Gap 15 mmol/L (10-20); BUN (Urea Nitrogen) 17 mg/dL (8.4-25.7); Calc. Creatinine Clearance 91 mL/min (70-130); Carbon Dioxide 25 mmol/L (23-31); Chloride 112 mmol/L (98-107); Glucose 108 mg/dL (80-115); Lactic Acid 1.3 mmol/L (0.5-2.2); Sodium 149 mmol/L (136-145)
[2020-11-19] MEDS: Piperacillin/Tazobactam 3.375 GM in Sodium Chloride 0.9% 100 ML IVPB SCH ×3 (07:19→17:46)
[2020-11-19 07:21] LABS: Potassium 2.7 mmol/L (3.5-5.1); Troponin I 0.022 ng/mL (< 0.028)
[2020-11-19] MEDS ORDERED: Diltiazem 125 MG in Sodium Chloride 0.9% 100 ML IVPB SCH (07:30)
[2020-11-19] MEDS ORDERED: Potassium Chloride 40 MEQ in Sodium Chloride 0.9% 250 ML 250 ML IVPB SCH ×2 (07:45→23:00)
[2020-11-19] MEDS: levETIRAcetam 500 mg/5 ml Oral Solution PER TUBE SCH ×2 (10:39→11:53)
[2020-11-19] MEDS: Zinc Sulfate 220 MG CAP PO SCH ×2 (10:40→11:53)
[2020-11-19] MEDS: Cholecalciferol 1,000 UNITS (25 MCG) TAB PO SCH ×2 (10:40→11:53)
[2020-11-19] MEDS: Ascorbic Acid 500 mg Chewable Tablet PO SCH ×2 (10:40→11:53)
[2020-11-19] MEDS: Doxazosin Mesylate 1 MG TAB PER TUBE SCH ×2 (10:40→11:53)
[2020-11-19] MEDS: Amlodipine 10 MG TAB PER TUBE SCH ×2 (10:40→11:53)
[2020-11-19 13:52] LABS: #Lymphocytes 0.5 thou/uL (1.20-3.40); #Monocytes 0.5 thou/uL (0.11-0.59); #Neutrophils 3.7 thou/uL (1.40-6.50); %Eosinophils 0.1 % (0.0-10.0); %Lymphocytes 11.4 % (21.0-51.0); %Monocytes 9.5 % (0.0-10.0); Mean Corpuscular HGB CONC 31.3 g/dL (32.0-36.0); Mean Corpuscular Hemoglobin 25.2 pg (27.0-31.0); Mean Corpuscular Volume 80.3 fL (78.0-98.0); Mean Platelet Volume 12.2 fL (7.4-10.4); Platelet Count 129 thou/uL (130-400); RBC Distribution Width 17.4 % (11.5-14.5); Red Blood Cell (RBC) Count 3.19 mill/uL (4.70-6.10); White Blood Cell (WBC) Count 4.7 thou/uL (4.8-10.8)
[2020-11-19] MEDS: Pantoprazole 80 MG, Admixture Fee 1 EACH in Sodium Chloride 0.9% 100 ML IVPB SCH ×2 (14:00→23:27)
[2020-11-19] MEDS: REMDESIVIR (EUA) 100 MG in Sodium Chloride 0.9% 250 ML 230 ML IV SCH (14:00)
[2020-11-19 14:14] LABS: Anion Gap 11 mmol/L (10-20); BUN (Urea Nitrogen) 19 mg/dL (8.4-25.7); Calc. Creatinine Clearance 88 mL/min (70-130); Carbon Dioxide 29 mmol/L (23-31); Chloride 112 mmol/L (98-107); Glucose 102 mg/dL (80-115); Magnesium 2.1 mg/dL (1.6-2.6); Potassium 3.6 mmol/L (3.5-5.1); Sodium 148 mmol/L (136-145)
[2020-11-19] MEDS ORDERED: Metoprolol Tartrate 25 MG TAB PO SCH (21:00)
[2020-11-19 21:38] LABS: Hemoglobin 8.1 g/dL (14.0-18.0)
[2020-11-19 22:02] LABS: Anion Gap 13 mmol/L (10-20); Carbon Dioxide 26 mmol/L (23-31); Chloride 111 mmol/L (98-107); Magnesium 1.9 mg/dL (1.6-2.6); Potassium 3.1 mmol/L (3.5-5.1); Sodium 147 mmol/L (136-145)
[2020-11-19 22:24] LABS: CKMB 0.7 ng/mL (0-6.6)
[2020-11-19] MEDS ORDERED: Potassium Chloride 40 MEQ in Premix Bag 1 BAG IVPB SCH (22:30)
[2020-11-19] MEDS ORDERED: Magnesium 2 GM/50 ML 2 GM in Premix Bag 1 BAG IVPB SCH (23:00)
[2020-11-20] MEDS: Piperacillin/Tazobactam 3.375 GM in Sodium Chloride 0.9% 100 ML IVPB SCH ×5 (01:47→23:39)
[2020-11-20 05:30] LABS: #Lymphocytes 0.6 thou/uL (1.20-3.40); #Monocytes 0.3 thou/uL (0.11-0.59); #Neutrophils 3.3 thou/uL (1.40-6.50); %Basophils 0.3 % (0.0-1.0); %Eosinophils 0.1 % (0.0-10.0); %Lymphocytes 13.5 % (21.0-51.0); %Monocytes 7.9 % (0.0-10.0); %Neutrophils 78.2 % (42.0-75.0); Mean Corpuscular HGB CONC 31.4 g/dL (32.0-36.0); Mean Corpuscular Hemoglobin 25.2 pg (27.0-31.0); Mean Corpuscular Volume 80.3 fL (78.0-98.0); Mean Platelet Volume 12.3 fL (7.4-10.4); Platelet Count 137 thou/uL (130-400); RBC Distribution Width 17.4 % (11.5-14.5); Red Blood Cell (RBC) Count 3.19 mill/uL (4.70-6.10); White Blood Cell (WBC) Count 4.2 thou/uL (4.8-10.8)
[2020-11-20 06:02] LABS: ALT (SGPT) 15 U/L (8-55); AST (SGOT) 22 U/L (5-34); Albumin 3.1 g/dL (3.4-4.8); Alkaline Phosphatase 64 U/L (40-110); Bilirubin, Direct 0.2 mg/dL (0.1-0.3); Bilirubin, Total 0.3 mg/dL (0.2-1.2); Magnesium 2.5 mg/dL (1.6-2.6)
[2020-11-20 06:04] LABS: Anion Gap 16 mmol/L (10-20); BUN (Urea Nitrogen) 17 mg/dL (8.4-25.7); Calc. Creatinine Clearance 92 mL/min (70-130); Calcium 8.2 mg/dL (7.8-10.44); Carbon Dioxide 22 mmol/L (23-31); Chloride 111 mmol/L (98-107); Glucose 120 mg/dL (80-115); Potassium 3.1 mmol/L (3.5-5.1); Sodium 146 mmol/L (136-145)
[2020-11-20] MEDS: Pantoprazole 80 MG, Admixture Fee 1 EACH in Sodium Chloride 0.9% 100 ML IVPB SCH ×2 (09:35→21:05)
[2020-11-20] MEDS: levETIRAcetam 500 mg/5 ml Oral Solution PER TUBE SCH (10:05)
[2020-11-20] MEDS: Ascorbic Acid 500 mg Chewable Tablet PO SCH (10:05)
[2020-11-20] MEDS: Amlodipine 10 MG TAB PER TUBE SCH (10:06)
[2020-11-20] MEDS: Zinc Sulfate 220 MG CAP PO SCH (10:06)
[2020-11-20] MEDS: Metoprolol Tartrate 25 MG TAB PO SCH ×2 (10:06→20:14)
[2020-11-20] MEDS: Cholecalciferol 1,000 UNITS (25 MCG) TAB PO SCH (10:06)
[2020-11-20] MEDS: Doxazosin Mesylate 1 MG TAB PER TUBE SCH (10:09)
[2020-11-20] MEDS: REMDESIVIR (EUA) 100 MG in Sodium Chloride 0.9% 250 ML 230 ML IV SCH (11:48)
[2020-11-21] MEDS: Piperacillin/Tazobactam 3.375 GM in Sodium Chloride 0.9% 100 ML IVPB SCH ×4 (05:30→23:21)
[2020-11-21 05:36] LABS: ALT (SGPT) 13 U/L (8-55); AST (SGOT) 20 U/L (5-34); Albumin 3.1 g/dL (3.4-4.8); Alkaline Phosphatase 66 U/L (40-110); Anion Gap 13 mmol/L (10-20); BUN (Urea Nitrogen) 16 mg/dL (8.4-25.7); Bilirubin, Direct 0.2 mg/dL (0.1-0.3); Bilirubin, Total 0.3 mg/dL (0.2-1.2); Calc. Creatinine Clearance 91 mL/min (70-130); Calcium 8.1 mg/dL (7.8-10.44); Carbon Dioxide 27 mmol/L (23-31); Chloride 109 mmol/L (98-107); Glucose 106 mg/dL (80-115); Magnesium 1.9 mg/dL (1.6-2.6); Protein, Total 6.2 g/dL (5.8-8.1); Sodium 146 mmol/L (136-145)
[2020-11-21 05:43] LABS: Potassium 2.9 mmol/L (3.5-5.1)
[2020-11-21] MEDS ORDERED: Electrolyte Replacement Protocol FS PRN (06:30)
[2020-11-21] MEDS ORDERED: Potassium Chloride 20 MEQ TAB PER TUBE SCH (08:00)
[2020-11-21] MEDS ORDERED: Magnesium 2 GM/50 ML 2 GM in Premix Bag 1 BAG IVPB SCH (09:00)
[2020-11-21] MEDS: levETIRAcetam 500 mg/5 ml Oral Solution PER TUBE SCH (11:02)
[2020-11-21] MEDS: Loratadine 5 MG/5 ML UDCUP PER TUBE SCH (11:02)
[2020-11-21] MEDS: Doxazosin Mesylate 1 MG TAB PER TUBE SCH (11:03)
[2020-11-21] MEDS: Zinc Sulfate 220 MG CAP PO SCH (11:03)
[2020-11-21] MEDS: Metoprolol Tartrate 25 MG TAB PO SCH ×2 (11:04→20:46)
[2020-11-21] MEDS: Ascorbic Acid 500 mg Chewable Tablet PO SCH (11:04)
[2020-11-21] MEDS: Amlodipine 10 MG TAB PER TUBE SCH (11:05)
[2020-11-21] MEDS: Cholecalciferol 1,000 UNITS (25 MCG) TAB PO SCH (11:05)
[2020-11-21] MEDS: Pantoprazole 80 MG, Admixture Fee 1 EACH in Sodium Chloride 0.9% 100 ML IVPB SCH ×2 (11:10→22:03)
[2020-11-21] MEDS: Potassium Bicarbonate/Cit Ac 20 MEQ TAB PER TUBE SCH ×3 (11:20→19:34)
[2020-11-21] MEDS ORDERED: hydrALAZINE 25 MG TAB PO PRN (15:37)
[2020-11-21] MEDS: REMDESIVIR (EUA) 100 MG in Sodium Chloride 0.9% 250 ML 230 ML IV SCH (15:58)
[2020-11-22 05:14] LABS: #Eosinphils 0.1 thou/uL (0.0-0.7); #Lymphocytes 0.7 thou/uL (1.20-3.40); #Monocytes 0.3 thou/uL (0.11-0.59); #Neutrophils 3.1 thou/uL (1.40-6.50); %Eosinophils 3.4 % (0.0-10.0); %Lymphocytes 15.7 % (21.0-51.0); %Monocytes 6.9 % (0.0-10.0); %Neutrophils 74.1 % (42.0-75.0); Hemoglobin 7.2 g/dL (14.0-18.0); Mean Corpuscular HGB CONC 31.2 g/dL (32.0-36.0); Mean Corpuscular Hemoglobin 25.1 pg (27.0-31.0); Mean Corpuscular Volume 80.4 fL (78.0-98.0); Mean Platelet Volume 11.5 fL (7.4-10.4); Platelet Count 136 thou/uL (130-400); RBC Distribution Width 17.2 % (11.5-14.5); Red Blood Cell (RBC) Count 2.87 mill/uL (4.70-6.10); White Blood Cell (WBC) Count 4.2 thou/uL (4.8-10.8)
[2020-11-22] MEDS: Piperacillin/Tazobactam 3.375 GM in Sodium Chloride 0.9% 100 ML IVPB SCH ×3 (05:26→17:43)
[2020-11-22 05:38] LABS: ALT (SGPT) 12 U/L (8-55); AST (SGOT) 17 U/L (5-34); Albumin 2.9 g/dL (3.4-4.8); Alkaline Phosphatase 62 U/L (40-110); Anion Gap 13 mmol/L (10-20); BUN (Urea Nitrogen) 18 mg/dL (8.4-25.7); Bilirubin, Direct 0.1 mg/dL (0.1-0.3); Bilirubin, Total 0.2 mg/dL (0.2-1.2); Calc. Creatinine Clearance 98 mL/min (70-130); Calcium 7.7 mg/dL (7.8-10.44); Carbon Dioxide 29 mmol/L (23-31); Chloride 107 mmol/L (98-107); Glucose 111 mg/dL (80-115); Potassium 3.3 mmol/L (3.5-5.1); Protein, Total 5.7 g/dL (5.8-8.1); Sodium 146 mmol/L (136-145)
[2020-11-22] MEDS ORDERED: Potassium Bicarbonate/Cit Ac 20 MEQ TAB PER TUBE SCH (08:00)
[2020-11-22] MEDS ORDERED: Magnesium 2 GM/50 ML 2 GM in Premix Bag 1 BAG IVPB SCH (08:00)
[2020-11-22] MEDS: levETIRAcetam 500 mg/5 ml Oral Solution PER TUBE SCH (08:17)
[2020-11-22] MEDS: Metoprolol Tartrate 25 MG TAB PO SCH ×2 (08:17→20:46)
[2020-11-22] MEDS: Amlodipine 10 MG TAB PER TUBE SCH (08:18)
[2020-11-22] MEDS: Ascorbic Acid 500 mg Chewable Tablet PO SCH (08:18)
[2020-11-22] MEDS: Cholecalciferol 1,000 UNITS (25 MCG) TAB PO SCH (08:19)
[2020-11-22] MEDS: Zinc Sulfate 220 MG CAP PO SCH (08:19)
[2020-11-22] MEDS: Loratadine 5 MG/5 ML UDCUP PER TUBE SCH (08:19)
[2020-11-22] MEDS: Potassium Bicarbonate/Cit Ac 20 MEQ TAB PER TUBE SCH ×2 (11:38→16:33)
[2020-11-22] MEDS: Doxazosin Mesylate 1 MG TAB PER TUBE SCH (11:44)
[2020-11-22 12:16] LABS: Potassium 3.6 mmol/L (3.5-5.1)
[2020-11-22] MEDS: Pantoprazole 80 MG, Admixture Fee 1 EACH in Sodium Chloride 0.9% 100 ML IVPB SCH (12:24)
[2020-11-22] MEDS: REMDESIVIR (EUA) 100 MG in Sodium Chloride 0.9% 250 ML 230 ML IV SCH (12:24)
[2020-11-22] MEDS ORDERED: Acetaminophen 325 MG TAB PO PRN (17:26)
[2020-11-23] MEDS: Piperacillin/Tazobactam 3.375 GM in Sodium Chloride 0.9% 100 ML IVPB SCH ×4 (01:50→17:06)
[2020-11-23] MEDS: Pantoprazole 80 MG, Admixture Fee 1 EACH in Sodium Chloride 0.9% 100 ML IVPB SCH (04:50)
[2020-11-23 05:29] LABS: #Eosinphils 0.4 thou/uL (0.0-0.7); #Lymphocytes 0.7 thou/uL (1.20-3.40); #Monocytes 0.3 thou/uL (0.11-0.59); #Neutrophils 4.2 thou/uL (1.40-6.50); %Basophils 0.8 % (0.0-1.0); %Monocytes 4.9 % (0.0-10.0); %Neutrophils 74.3 % (42.0-75.0); Hemoglobin 8.8 g/dL (14.0-18.0); Mean Corpuscular HGB CONC 31.5 g/dL (32.0-36.0); Mean Corpuscular Hemoglobin 25.9 pg (27.0-31.0); Mean Corpuscular Volume 82.3 fL (78.0-98.0); Mean Platelet Volume 11.3 fL (7.4-10.4); Platelet Count 141 thou/uL (130-400); RBC Distribution Width 16.9 % (11.5-14.5); Red Blood Cell (RBC) Count 3.38 mill/uL (4.70-6.10); White Blood Cell (WBC) Count 5.7 thou/uL (4.8-10.8)
[2020-11-23 05:47] LABS: Anion Gap 11 mmol/L (10-20); BUN (Urea Nitrogen) 17 mg/dL (8.4-25.7); Calc. Creatinine Clearance 93 mL/min (70-130); Calcium 8.1 mg/dL (7.8-10.44); Carbon Dioxide 29 mmol/L (23-31); Chloride 106 mmol/L (98-107); Glucose 146 mg/dL (80-115); Potassium 3.6 mmol/L (3.5-5.1); Sodium 142 mmol/L (136-145)
[2020-11-23] MEDS ORDERED: Magnesium 2 GM/50 ML 2 GM in Premix Bag 1 BAG IVPB SCH (07:45)
[2020-11-23] MEDS: Loratadine 5 MG/5 ML UDCUP PER TUBE SCH (07:59)
[2020-11-23] MEDS: Doxazosin Mesylate 1 MG TAB PER TUBE SCH (07:59)
[2020-11-23] MEDS: levETIRAcetam 500 mg/5 ml Oral Solution PER TUBE SCH (08:00)
[2020-11-23] MEDS: Ascorbic Acid 500 mg Chewable Tablet PO SCH (08:01)
[2020-11-23] MEDS: Zinc Sulfate 220 MG CAP PO SCH (08:01)
[2020-11-23] MEDS: Metoprolol Tartrate 25 MG TAB PO SCH ×2 (08:02→20:43)
[2020-11-23] MEDS: Cholecalciferol 1,000 UNITS (25 MCG) TAB PO SCH (08:02)
[2020-11-23] MEDS: Amlodipine 10 MG TAB PER TUBE SCH (08:25)
[2020-11-23] MEDS: Sodium Chloride 0.9% 1,000 ML IV SCH (19:00)
[2020-11-23] MEDS: Cefepime 2 GM in Sodium Chloride 0.9% 100 ML IVPB SCH (20:43)
[2020-11-23] MEDS: Vancomycin 1 GM in Premix Bag 1 BAG IVPB SCH (21:33)
[2020-11-23] MEDS: metroNIDAZOLE 500 MG in Premix Bag 1 BAG IVPB SCH (22:54)
[2020-11-24] MEDS: Pantoprazole 80 MG, Admixture Fee 1 EACH in Sodium Chloride 0.9% 100 ML IVPB SCH ×2 (05:26→17:17)
[2020-11-24] MEDS: Cefepime 2 GM in Sodium Chloride 0.9% 100 ML IVPB SCH ×3 (05:35→22:54)
[2020-11-24] MEDS: metroNIDAZOLE 500 MG in Premix Bag 1 BAG IVPB SCH ×2 (06:07→15:00)
[2020-11-24] MEDS: Sodium Chloride 0.9% 1,000 ML IV SCH ×2 (06:08→22:57)
[2020-11-24 06:24] LABS: #Eosinphils 0.5 thou/uL (0.0-0.7); #Lymphocytes 0.8 thou/uL (1.20-3.40); #Monocytes 0.3 thou/uL (0.11-0.59); #Neutrophils 3.4 thou/uL (1.40-6.50); %Eosinophils 10.7 % (0.0-10.0); %Lymphocytes 15.4 % (21.0-51.0); %Monocytes 5.7 % (0.0-10.0); %Neutrophils 68.2 % (42.0-75.0); Hemoglobin 8.4 g/dL (14.0-18.0); Mean Corpuscular HGB CONC 32.3 g/dL (32.0-36.0); Mean Corpuscular Hemoglobin 26.4 pg (27.0-31.0); Mean Corpuscular Volume 81.6 fL (78.0-98.0); Platelet Count 156 thou/uL (130-400); RBC Distribution Width 17.3 % (11.5-14.5); Red Blood Cell (RBC) Count 3.18 mill/uL (4.70-6.10)
[2020-11-24 06:39] LABS: Anion Gap 11 mmol/L (10-20); BUN (Urea Nitrogen) 13 mg/dL (8.4-25.7); Calc. Creatinine Clearance 97 mL/min (70-130); Carbon Dioxide 27 mmol/L (23-31); Chloride 106 mmol/L (98-107); Glucose 116 mg/dL (80-115); Magnesium 1.8 mg/dL (1.6-2.6); Potassium 3.5 mmol/L (3.5-5.1); Sodium 140 mmol/L (136-145)
[2020-11-24] MEDS ORDERED: Magnesium 2 GM/50 ML 2 GM in Premix Bag 1 BAG IVPB SCH (07:00)
[2020-11-24] MEDS ORDERED: Potassium Chloride 20 MEQ TAB PO SCH (07:00)
[2020-11-24] MEDS ORDERED: Potassium Bicarbonate/Cit Ac 20 MEQ TAB PER TUBE SCH (07:15)
[2020-11-24] MEDS: levETIRAcetam 500 mg/5 ml Oral Solution PER TUBE SCH (07:46)
[2020-11-24] MEDS: Loratadine 5 MG/5 ML UDCUP PER TUBE SCH (07:46)
[2020-11-24] MEDS: Doxazosin Mesylate 1 MG TAB PER TUBE SCH (07:47)
[2020-11-24] MEDS: Ascorbic Acid 500 mg Chewable Tablet PO SCH (07:47)
[2020-11-24] MEDS: Zinc Sulfate 220 MG CAP PO SCH (07:48)
[2020-11-24] MEDS: Metoprolol Tartrate 25 MG TAB PO SCH ×2 (07:48→22:54)
[2020-11-24] MEDS: Amlodipine 10 MG TAB PER TUBE SCH (07:48)
[2020-11-24] MEDS: Cholecalciferol 1,000 UNITS (25 MCG) TAB PO SCH (07:48)
[2020-11-24] MEDS: Vancomycin 1 GM in Premix Bag 1 BAG IVPB SCH ×2 (07:55→22:55)
[2020-11-24] MEDS: Scopolamine 1.5 mg/72 hour Patch TD SCH (22:55)
[2020-11-24] MEDS: Pantoprazole 40 MG VIAL IVP SCH (22:56)
[2020-11-24] MEDS: Heparin 5,000 UNITS/ML VIAL SC SCH (22:56)
[2020-11-25] MEDS: Cefepime 2 GM in Sodium Chloride 0.9% 100 ML IVPB SCH ×3 (05:28→22:11)
[2020-11-25] MEDS: metroNIDAZOLE 500 MG in Premix Bag 1 BAG IVPB SCH ×4 (05:29→23:17)
[2020-11-25 05:38] LABS: #Eosinphils 0.4 thou/uL (0.0-0.7); #Lymphocytes 0.6 thou/uL (1.20-3.40); #Monocytes 0.4 thou/uL (0.11-0.59); #Neutrophils 3.6 thou/uL (1.40-6.50); %Basophils 0.2 % (0.0-1.0); %Eosinophils 8.2 % (0.0-10.0); %Lymphocytes 12.4 % (21.0-51.0); %Monocytes 7.5 % (0.0-10.0); %Neutrophils 71.7 % (42.0-75.0); Hemoglobin 8.4 g/dL (14.0-18.0); Mean Corpuscular Hemoglobin 25.1 pg (27.0-31.0); Mean Corpuscular Volume 80.8 fL (78.0-98.0); Mean Platelet Volume 10.9 fL (7.4-10.4); Platelet Count 164 thou/uL (130-400); RBC Distribution Width 17.3 % (11.5-14.5); Red Blood Cell (RBC) Count 3.33 mill/uL (4.70-6.10); White Blood Cell (WBC) Count 4.9 thou/uL (4.8-10.8)
[2020-11-25 05:53] LABS: Anion Gap 12 mmol/L (10-20); BUN (Urea Nitrogen) 10 mg/dL (8.4-25.7); Calc. Creatinine Clearance 102 mL/min (70-130); Calcium 7.9 mg/dL (7.8-10.44); Carbon Dioxide 24 mmol/L (23-31); Chloride 104 mmol/L (98-107); Glucose 92 mg/dL (80-115); Potassium 3.6 mmol/L (3.5-5.1); Sodium 136 mmol/L (136-145)
[2020-11-25 08:14] LABS: Vancomycin, Trough 16.6 ug/mL
[2020-11-25] MEDS: Vancomycin 1 GM in Premix Bag 1 BAG IVPB SCH ×2 (10:03→22:13)
[2020-11-25] MEDS: levETIRAcetam 500 mg/5 ml Oral Solution PER TUBE SCH (10:03)
[2020-11-25] MEDS: Loratadine 5 MG/5 ML UDCUP PER TUBE SCH (10:03)
[2020-11-25] MEDS: Zinc Sulfate 220 MG CAP PO SCH (10:04)
[2020-11-25] MEDS: Metoprolol Tartrate 25 MG TAB PO SCH ×2 (10:04→22:12)
[2020-11-25] MEDS: Doxazosin Mesylate 1 MG TAB PER TUBE SCH (10:04)
[2020-11-25] MEDS: Cholecalciferol 1,000 UNITS (25 MCG) TAB PO SCH (10:04)
[2020-11-25] MEDS: Heparin 5,000 UNITS/ML VIAL SC SCH ×2 (10:04→22:11)
[2020-11-25] MEDS: Amlodipine 10 MG TAB PER TUBE SCH (10:05)
[2020-11-25] MEDS: Ascorbic Acid 500 mg Chewable Tablet PO SCH (10:05)
[2020-11-25] MEDS: Pantoprazole 40 MG VIAL IVP SCH ×2 (10:11→22:11)
[2020-11-25] MEDS: Sodium Chloride 0.9% (PF) 10 ML VIAL FS PRN (10:11)
[2020-11-25] MEDS: Sodium Chloride 0.9% 1,000 ML IV SCH (10:12)
[2020-11-25] MEDS ORDERED: Iopamidol-370 76% 500 ML 1 ML ONE (10:35)
[2020-11-25] MEDS: Admixture Fee 1 EACH in Dextrose 70% in Water 71.43 ML, Sterile Water Injection 645.24 ... IV SCH (22:29)
[2020-11-26] MEDS: Sodium Chloride 0.9% 1,000 ML IV SCH (04:30)
[2020-11-26] MEDS: Cefepime 2 GM in Sodium Chloride 0.9% 100 ML IVPB SCH ×4 (04:30→20:23)
[2020-11-26] MEDS: metroNIDAZOLE 500 MG in Premix Bag 1 BAG IVPB SCH ×3 (05:46→22:52)
[2020-11-26] MEDS ORDERED: Sodium Chloride 0.65% Nasal 44 ML BOT EA NARE PRN (08:11)
[2020-11-26] MEDS ORDERED: Cepastat Lozenges 1 LOZ PO PRN (08:11)
[2020-11-26] MEDS ORDERED: Calcium Carbonate 500 MG ChewTAB PER TUBE PRN (08:11)
[2020-11-26] MEDS ORDERED: Senokot S 8.6-50 MG TAB PER TUBE PRN (08:11)
[2020-11-26] MEDS ORDERED: GUAIFENESIN SF SOLN 200 MG/10 ML UDCUP PER TUBE PRN (08:11)
[2020-11-26] MEDS ORDERED: Loperamide HCl 2 MG CAP PER TUBE PRN (08:11)
[2020-11-26] MEDS ORDERED: Bisacodyl 10 MG SUPP PR PRN (08:11)
[2020-11-26] MEDS ORDERED: hydrALAZINE 20 MG/ML VIAL SLOW IVP PRN (08:11)
[2020-11-26] MEDS ORDERED: Loratadine 10 MG TAB FS PRN (08:11)
[2020-11-26] MEDS ORDERED: Metoclopramide HCl 10 MG/2 ML VIAL IVP PRN (08:11)
[2020-11-26] MEDS ORDERED: Potassium Chloride 10 MEQ in Premix Bag 1 BAG IVPB SCH (08:15)
[2020-11-26] MEDS ORDERED: Magnesium 2 GM/50 ML 2 GM in Premix Bag 1 BAG IVPB SCH (08:30)
[2020-11-26] MEDS: Pantoprazole 40 MG VIAL IVP SCH ×2 (09:19→20:24)
[2020-11-26] MEDS: Heparin 5,000 UNITS/ML VIAL SC SCH ×2 (09:19→20:23)
[2020-11-26] MEDS: Cholecalciferol 1,000 UNITS (25 MCG) TAB PO SCH (11:56)
[2020-11-26] MEDS: Ascorbic Acid 500 mg Chewable Tablet PO SCH (11:56)
[2020-11-26] MEDS: Metoprolol Tartrate 25 MG TAB PO SCH ×2 (11:56→20:24)
[2020-11-26] MEDS: Amlodipine 10 MG TAB PER TUBE SCH (11:56)
[2020-11-26] MEDS: levETIRAcetam 500 mg/5 ml Oral Solution PER TUBE SCH (11:56)
[2020-11-26] MEDS: Docusate Sodium 100 MG/10 ML UDCUP PER TUBE SCH (11:56)
[2020-11-26] MEDS: Vancomycin 1 GM in Premix Bag 1 BAG IVPB SCH ×2 (11:56→21:30)
[2020-11-26] MEDS: Zinc Sulfate 220 MG CAP PO SCH (11:56)
[2020-11-26] MEDS: Doxazosin Mesylate 1 MG TAB PER TUBE SCH (11:56)
[2020-11-26] MEDS: Admixture Fee 1 EACH in Dextrose 70% in Water 71.43 ML, Sterile Water Injection 645.24 ... IV SCH (21:31)
[2020-11-27] MEDS: Cefepime 2 GM in Sodium Chloride 0.9% 100 ML IVPB SCH ×3 (04:33→20:03)
[2020-11-27 05:19] LABS: #Eosinphils 0.1 thou/uL (0.0-0.7); #Lymphocytes 0.4 thou/uL (1.20-3.40); #Monocytes 0.4 thou/uL (0.11-0.59); #Neutrophils 2.6 thou/uL (1.40-6.50); %Eosinophils 2.1 % (0.0-10.0); %Lymphocytes 12.3 % (21.0-51.0); %Monocytes 12.1 % (0.0-10.0); %Neutrophils 73.5 % (42.0-75.0); Hemoglobin 8.9 g/dL (14.0-18.0); Mean Corpuscular HGB CONC 32.1 g/dL (32.0-36.0); Mean Corpuscular Hemoglobin 26.2 pg (27.0-31.0); Mean Corpuscular Volume 81.7 fL (78.0-98.0); Mean Platelet Volume 11.2 fL (7.4-10.4); Platelet Count 161 thou/uL (130-400); RBC Distribution Width 17.5 % (11.5-14.5); Red Blood Cell (RBC) Count 3.41 mill/uL (4.70-6.10); White Blood Cell (WBC) Count 3.6 thou/uL (4.8-10.8)
[2020-11-27] MEDS: metroNIDAZOLE 500 MG in Premix Bag 1 BAG IVPB SCH ×3 (05:25→23:10)
[2020-11-27 05:38] LABS: ALT (SGPT) 41 U/L (8-55); AST (SGOT) 60 U/L (5-34); Albumin 2.8 g/dL (3.4-4.8); Alkaline Phosphatase 75 U/L (40-110); Anion Gap 12 mmol/L (10-20); BUN (Urea Nitrogen) 11 mg/dL (8.4-25.7); Bilirubin, Total 0.4 mg/dL (0.2-1.2); Calc. Creatinine Clearance 96 mL/min (70-130); Calcium 8.3 mg/dL (7.8-10.44); Carbon Dioxide 23 mmol/L (23-31); Chloride 105 mmol/L (98-107); Globulin 3.3 g/dL (2.4-3.5); Glucose 114 mg/dL (80-115); Magnesium 1.9 mg/dL (1.6-2.6); Potassium 3.3 mmol/L (3.5-5.1); Protein, Total 6.1 g/dL (5.8-8.1); Sodium 137 mmol/L (136-145)
[2020-11-27 05:46] LABS: Phosphorus 1.8 mg/dL (2.3-4.7)
[2020-11-27] MEDS ORDERED: Potassium Chloride 20 MEQ in Premix Bag 1 BAG IVPB SCH (06:00)
[2020-11-27] MEDS ORDERED: Potassium Phosphate 30 MMOL in Sodium Chloride 0.9% 500 ML IVPB SCH ×2 (06:00→09:30)
[2020-11-27] MEDS ORDERED: Magnesium 2 GM/50 ML 2 GM in Premix Bag 1 BAG IVPB SCH (06:00)
[2020-11-27 09:24] LABS: Vancomycin, Trough 21.8 ug/mL
[2020-11-27] MEDS: Cholecalciferol 1,000 UNITS (25 MCG) TAB PO SCH (09:26)
[2020-11-27] MEDS: Amlodipine 10 MG TAB PER TUBE SCH (09:26)
[2020-11-27] MEDS: Zinc Sulfate 220 MG CAP PO SCH (09:26)
[2020-11-27] MEDS: Ascorbic Acid 500 mg Chewable Tablet PO SCH (09:26)
[2020-11-27] MEDS: Docusate Sodium 100 MG/10 ML UDCUP PER TUBE SCH (09:27)
[2020-11-27] MEDS: Sodium Chloride 0.9% (PF) 10 ML VIAL FS PRN (09:27)
[2020-11-27] MEDS: levETIRAcetam 500 mg/5 ml Oral Solution PER TUBE SCH (09:27)
[2020-11-27] MEDS: Metoprolol Tartrate 25 MG TAB PO SCH ×2 (09:27→21:36)
[2020-11-27] MEDS: Doxazosin Mesylate 1 MG TAB PER TUBE SCH (09:28)
[2020-11-27] MEDS: Pantoprazole 40 MG VIAL IVP SCH ×2 (09:28→20:04)
[2020-11-27] MEDS: Heparin 5,000 UNITS/ML VIAL SC SCH ×2 (09:32→20:05)
[2020-11-27] MEDS: Vancomycin 1 GM in Premix Bag 1 BAG IVPB SCH ×3 (11:00→21:07)
[2020-11-27] MEDS: Scopolamine 1.5 mg/72 hour Patch TD SCH (20:05)
[2020-11-28] MEDS: Cefepime 2 GM in Sodium Chloride 0.9% 100 ML IVPB SCH (04:22)
[2020-11-28 04:41] LABS: #Eosinphils 0.1 thou/uL (0.0-0.7); #Lymphocytes 0.4 thou/uL (1.20-3.40); #Monocytes 0.4 thou/uL (0.11-0.59); #Neutrophils 2.6 thou/uL (1.40-6.50); %Basophils 0.4 % (0.0-1.0); %Eosinophils 2.2 % (0.0-10.0); %Monocytes 12.3 % (0.0-10.0); %Neutrophils 73.2 % (42.0-75.0); Hemoglobin 8.2 g/dL (14.0-18.0); Mean Corpuscular Hemoglobin 26.3 pg (27.0-31.0); Mean Platelet Volume 10.5 fL (7.4-10.4); Platelet Count 186 thou/uL (130-400); RBC Distribution Width 17.8 % (11.5-14.5); Red Blood Cell (RBC) Count 3.14 mill/uL (4.70-6.10); White Blood Cell (WBC) Count 3.5 thou/uL (4.8-10.8)
[2020-11-28] MEDS: metroNIDAZOLE 500 MG in Premix Bag 1 BAG IVPB SCH (05:02)
[2020-11-28 05:09] LABS: Anion Gap 9 mmol/L (10-20); BUN (Urea Nitrogen) 13 mg/dL (8.4-25.7); Calc. Creatinine Clearance 101 mL/min (70-130); Calcium 8.1 mg/dL (7.8-10.44); Carbon Dioxide 26 mmol/L (23-31); Chloride 105 mmol/L (98-107); Glucose 101 mg/dL (80-115); Phosphorus 2.4 mg/dL (2.3-4.7); Potassium 3.4 mmol/L (3.5-5.1); Sodium 137 mmol/L (136-145)
[2020-11-28] MEDS: Metoprolol Tartrate 25 MG TAB PO SCH ×2 (08:01→21:54)
[2020-11-28] MEDS: Ascorbic Acid 500 mg Chewable Tablet PO SCH (08:01)
[2020-11-28] MEDS: levETIRAcetam 500 mg/5 ml Oral Solution PER TUBE SCH (08:01)
[2020-11-28] MEDS: Zinc Sulfate 220 MG CAP PO SCH (08:01)
[2020-11-28] MEDS: Amlodipine 10 MG TAB PER TUBE SCH (08:01)
[2020-11-28] MEDS: Heparin 5,000 UNITS/ML VIAL SC SCH ×2 (08:02→21:54)
[2020-11-28] MEDS: Docusate Sodium 100 MG/10 ML UDCUP PER TUBE SCH (08:02)
[2020-11-28] MEDS: Sodium Chloride 0.9% (PF) 10 ML VIAL FS PRN (08:02)
[2020-11-28] MEDS: Doxazosin Mesylate 1 MG TAB PER TUBE SCH (08:02)
[2020-11-28] MEDS: Pantoprazole 40 MG VIAL IVP SCH (08:02)
[2020-11-28] MEDS: Cholecalciferol 1,000 UNITS (25 MCG) TAB PO SCH (08:02)
[2020-11-28] MEDS: Vancomycin 1 GM in Premix Bag 1 BAG IVPB SCH (08:03)
[2020-11-28] MEDS ORDERED: Potassium Chloride 20 MEQ TAB PER TUBE SCH (09:00)
[2020-11-28] MEDS: Pantoprazole 40 MG GRANULES PACKET PER TUBE SCH (09:52)
[2020-11-28] MEDS: Amoxicillin/Potassium Clav 875 MG TAB PER TUBE SCH ×2 (09:59→21:54)
[2020-11-29] MEDS: Ascorbic Acid 500 mg Chewable Tablet PO SCH (09:38)
[2020-11-29] MEDS: Cholecalciferol 1,000 UNITS (25 MCG) TAB PO SCH (09:38)
[2020-11-29] MEDS: Amoxicillin/Potassium Clav 875 MG TAB PER TUBE SCH ×2 (09:38→20:29)
[2020-11-29] MEDS: Metoprolol Tartrate 25 MG TAB PO SCH ×2 (09:38→20:29)
[2020-11-29] MEDS: Pantoprazole 40 MG GRANULES PACKET PER TUBE SCH (09:38)
[2020-11-29] MEDS: Zinc Sulfate 220 MG CAP PO SCH (09:38)
[2020-11-29] MEDS: Docusate Sodium 100 MG/10 ML UDCUP PER TUBE SCH (09:39)
[2020-11-29] MEDS: Doxazosin Mesylate 1 MG TAB PER TUBE SCH (09:39)
[2020-11-29] MEDS: levETIRAcetam 500 mg/5 ml Oral Solution PER TUBE SCH (09:39)
[2020-11-29] MEDS: Amlodipine 10 MG TAB PER TUBE SCH (09:39)
[2020-11-29] MEDS: Heparin 5,000 UNITS/ML VIAL SC SCH ×2 (09:40→20:29)
[2020-11-30] MEDS: Zinc Sulfate 220 MG CAP PO SCH (09:51)
[2020-11-30] MEDS: Amoxicillin/Potassium Clav 875 MG TAB PER TUBE SCH ×2 (09:51→20:43)
[2020-11-30] MEDS: Cholecalciferol 1,000 UNITS (25 MCG) TAB PO SCH (09:51)
[2020-11-30] MEDS: Ascorbic Acid 500 mg Chewable Tablet PO SCH (09:51)
[2020-11-30] MEDS: levETIRAcetam 500 mg/5 ml Oral Solution PER TUBE SCH (09:51)
[2020-11-30] MEDS: Docusate Sodium 100 MG/10 ML UDCUP PER TUBE SCH (09:51)
[2020-11-30] MEDS: Doxazosin Mesylate 1 MG TAB PER TUBE SCH (09:52)
[2020-11-30] MEDS: Pantoprazole 40 MG GRANULES PACKET PER TUBE SCH (09:52)
[2020-11-30] MEDS: Heparin 5,000 UNITS/ML VIAL SC SCH ×2 (09:52→20:46)
[2020-11-30] MEDS: Amlodipine 10 MG TAB PER TUBE SCH (09:52)
[2020-11-30] MEDS: Metoprolol Tartrate 25 MG TAB PO SCH ×2 (09:52→20:43)
[2020-11-30] MEDS: Scopolamine 1.5 mg/72 hour Patch TD SCH (20:43)
[2020-12-01] MEDS: Amoxicillin/Potassium Clav 875 MG TAB PER TUBE SCH (20:40)
[2020-12-01] MEDS: Metoprolol Tartrate 25 MG TAB PO SCH (20:40)
[2020-12-01] MEDS: Heparin 5,000 UNITS/ML VIAL SC SCH (20:40)
[2020-12-02 04:33] LABS: #Eosinphils 0.1 thou/uL (0.0-0.7); #Lymphocytes 0.8 thou/uL (1.20-3.40); #Monocytes 0.4 thou/uL (0.11-0.59); #Neutrophils 2.5 thou/uL (1.40-6.50); %Basophils 0.6 % (0.0-1.0); %Eosinophils 3.4 % (0.0-10.0); %Lymphocytes 19.7 % (21.0-51.0); %Neutrophils 66.3 % (42.0-75.0); Hemoglobin 8.1 g/dL (14.0-18.0); Mean Corpuscular Hemoglobin 26.2 pg (27.0-31.0); Mean Corpuscular Volume 81.9 fL (78.0-98.0); Mean Platelet Volume 10.3 fL (7.4-10.4); Platelet Count 228 thou/uL (130-400); RBC Distribution Width 17.3 % (11.5-14.5); Red Blood Cell (RBC) Count 3.09 mill/uL (4.70-6.10); White Blood Cell (WBC) Count 3.8 thou/uL (4.8-10.8)
[2020-12-02 05:04] LABS: ALT (SGPT) 57 U/L (8-55); AST (SGOT) 30 U/L (5-34); Albumin 2.7 g/dL (3.4-4.8); Alkaline Phosphatase 74 U/L (40-110); Anion Gap 9 mmol/L (10-20); BUN (Urea Nitrogen) 14 mg/dL (8.4-25.7); Bilirubin, Total 0.3 mg/dL (0.2-1.2); Calc. Creatinine Clearance 96 mL/min (70-130); Calcium 8.8 mg/dL (7.8-10.44); Carbon Dioxide 32 mmol/L (23-31); Chloride 100 mmol/L (98-107); Globulin 3.3 g/dL (2.4-3.5); Glucose 126 mg/dL (80-115); Magnesium 1.9 mg/dL (1.6-2.6); Phosphorus 3.3 mg/dL (2.3-4.7); Potassium 3.9 mmol/L (3.5-5.1); Sodium 137 mmol/L (136-145)
[2020-12-02] MEDS: Amoxicillin/Potassium Clav 875 MG TAB PER TUBE SCH ×3 (10:51→21:18)
[2020-12-02] MEDS: Ascorbic Acid 500 mg Chewable Tablet PO SCH ×2 (10:51→11:05)
[2020-12-02] MEDS: Amlodipine 10 MG TAB PER TUBE SCH ×2 (10:51→11:05)
[2020-12-02] MEDS: Metoprolol Tartrate 25 MG TAB PO SCH ×3 (10:52→21:18)
[2020-12-02] MEDS: Heparin 5,000 UNITS/ML VIAL SC SCH ×3 (10:52→21:19)
[2020-12-02] MEDS: Cholecalciferol 1,000 UNITS (25 MCG) TAB PO SCH ×2 (10:52→11:06)
[2020-12-02] MEDS: levETIRAcetam 500 mg/5 ml Oral Solution PER TUBE SCH ×2 (10:52→11:04)
[2020-12-02] MEDS: Docusate Sodium 100 MG/10 ML UDCUP PER TUBE SCH ×2 (10:52→11:04)
[2020-12-02] MEDS: Doxazosin Mesylate 1 MG TAB PER TUBE SCH ×2 (10:52→11:05)
[2020-12-02] MEDS: Pantoprazole 40 MG GRANULES PACKET PER TUBE SCH ×2 (10:53→11:05)
[2020-12-02] MEDS: Zinc Sulfate 220 MG CAP PO SCH ×2 (10:53→11:04)
[2020-12-03] MEDS: Amlodipine 10 MG TAB PER TUBE SCH (09:02)
[2020-12-03] MEDS: Docusate Sodium 100 MG/10 ML UDCUP PER TUBE SCH (09:03)
[2020-12-03] MEDS: levETIRAcetam 500 mg/5 ml Oral Solution PER TUBE SCH (09:03)
[2020-12-03] MEDS: Amoxicillin/Potassium Clav 875 MG TAB PER TUBE SCH ×2 (09:03→20:44)
[2020-12-03] MEDS: Cholecalciferol 1,000 UNITS (25 MCG) TAB PO SCH (09:03)
[2020-12-03] MEDS: Doxazosin Mesylate 1 MG TAB PER TUBE SCH (09:03)
[2020-12-03] MEDS: Metoprolol Tartrate 25 MG TAB PO SCH ×2 (09:03→20:44)
[2020-12-03] MEDS: Ascorbic Acid 500 mg Chewable Tablet PO SCH (09:03)
[2020-12-03] MEDS: Zinc Sulfate 220 MG CAP PO SCH (09:04)
[2020-12-03] MEDS: Pantoprazole 40 MG GRANULES PACKET PER TUBE SCH (09:04)
[2020-12-03] MEDS: Heparin 5,000 UNITS/ML VIAL SC SCH ×2 (09:06→20:44)
[2020-12-03] MEDS: Scopolamine 1.5 mg/72 hour Patch TD SCH (20:53)
[2020-12-04 05:14] LABS: #Eosinphils 0.1 thou/uL (0.0-0.7); #Lymphocytes 0.9 thou/uL (1.20-3.40); #Monocytes 0.3 thou/uL (0.11-0.59); #Neutrophils 2.7 thou/uL (1.40-6.50); %Basophils 0.6 % (0.0-1.0); %Eosinophils 2.2 % (0.0-10.0); %Lymphocytes 21.4 % (21.0-51.0); %Monocytes 8.3 % (0.0-10.0); %Neutrophils 67.6 % (42.0-75.0); Hemoglobin 8.6 g/dL (14.0-18.0); Mean Corpuscular HGB CONC 31.7 g/dL (32.0-36.0); Mean Corpuscular Hemoglobin 25.8 pg (27.0-31.0); Mean Corpuscular Volume 81.5 fL (78.0-98.0); Mean Platelet Volume 10.1 fL (7.4-10.4); Platelet Count 257 thou/uL (130-400); RBC Distribution Width 17.4 % (11.5-14.5); Red Blood Cell (RBC) Count 3.32 mill/uL (4.70-6.10)
[2020-12-04 05:33] LABS: Anion Gap 13 mmol/L (10-20); BUN (Urea Nitrogen) 12 mg/dL (8.4-25.7); Calc. Creatinine Clearance 100 mL/min (70-130); Calcium 8.8 mg/dL (7.8-10.44); Carbon Dioxide 25 mmol/L (23-31); Chloride 103 mmol/L (98-107); Glucose 90 mg/dL (80-115); Magnesium 1.8 mg/dL (1.6-2.6); Sodium 137 mmol/L (136-145)
[2020-12-04] MEDS: Amlodipine 10 MG TAB PER TUBE SCH (09:08)
[2020-12-04] MEDS: Amoxicillin/Potassium Clav 875 MG TAB PER TUBE SCH (09:08)
[2020-12-04] MEDS: Doxazosin Mesylate 1 MG TAB PER TUBE SCH (09:09)
[2020-12-04] MEDS: Ascorbic Acid 500 mg Chewable Tablet PO SCH (09:09)
[2020-12-04] MEDS: Cholecalciferol 1,000 UNITS (25 MCG) TAB PO SCH (09:09)
[2020-12-04] MEDS: levETIRAcetam 500 mg/5 ml Oral Solution PER TUBE SCH (09:09)
[2020-12-04] MEDS: Docusate Sodium 100 MG/10 ML UDCUP PER TUBE SCH (09:09)
[2020-12-04] MEDS: Heparin 5,000 UNITS/ML VIAL SC SCH (09:09)
[2020-12-04] MEDS: Pantoprazole 40 MG GRANULES PACKET PER TUBE SCH (09:10)
[2020-12-04] MEDS: Zinc Sulfate 220 MG CAP PO SCH (09:10)
[2020-12-04] MEDS: Metoprolol Tartrate 25 MG TAB PO SCH (09:10)
[2020-12-04 17:31] VITALS: BP 109/63; TEMP 97.9
== END 2020-12-04 17:30 | DRG 871 ==
LOC: ERS 07:28 → OBSVTOIN 12:03 → 2SW 12:03
PROVIDERS: ADMIT Internal Medicine; ATTEND Internal Medicine
PROC: 8E0ZXY6 Isolation (ICD-10-PCS; principal; 2020-11-16)
PROC: XW033E5 Introduction of Remdesivir Anti-infective into Peripheral Vein, Percutaneous Approach, New Technology Group 5 (ICD-10-PCS; 2020-11-19)
DX: A41.89 Other specified sepsis (principal); U07.1 COVID-19; J12.82 Pneumonia due to coronavirus disease 2019; J69.0 Pneumonitis due to inhalation of food and vomit; G93.41 Metabolic encephalopathy; J96.01 Acute respiratory failure with hypoxia; R53.2 Functional quadriplegia; I47.2 Ventricular tachycardia; K92.0 Hematemesis; I69.351 Hemiplegia and hemiparesis following cerebral infarction affecting right dominant side; D62 Acute posthemorrhagic anemia; Z66 Do not resuscitate; M48.10 Ankylosing hyperostosis [Forestier], site unspecified; E11.9 Type 2 diabetes mellitus without complications; K21.00 Gastro-esophageal reflux disease with esophagitis, without bleeding; J44.9 Chronic obstructive pulmonary disease, unspecified; F32.9 Major depressive disorder, single episode, unspecified; F01.50 Vascular dementia, unspecified severity, without behavioral disturbance, psychotic disturbance, mood disturbance, and anxiety; F41.9 Anxiety disorder, unspecified; D50.9 Iron deficiency anemia, unspecified; G40.909 Epilepsy, unspecified, not intractable, without status epilepticus; I10 Essential (primary) hypertension; E87.6 Hypokalemia; I48.0 Paroxysmal atrial fibrillation; I69.891 Dysphagia following other cerebrovascular disease; Z88.5 Allergy status to narcotic agent; Z93.1 Gastrostomy status; Z79.899 Other long term (current) drug therapy; Z79.84 Long term (current) use of oral hypoglycemic drugs; Z87.891 Personal history of nicotine dependence; I69.398 Other sequelae of cerebral infarction; E83.39 Other disorders of phosphorus metabolism; K43.9 Ventral hernia without obstruction or gangrene; R13.10 Dysphagia, unspecified; I69.320 Aphasia following cerebral infarction; I69.391 Dysphagia following cerebral infarction
CPT/HCPCS: 0240U; 36415; 36416; 36430; 51702; 71045; 71260; 74177; 80048; 80053; 80076; 80202; 81003; 81015; 82270; 82553; 82728; 82805; 83036; 83605; 83690; 83735; 83880; 84100; 84484; 85025; 85379; 85610; 85730; 86140; 86850; 86900; 86901; 87040; 87324; 87449; 93005; 93010; 94760; 96361; 96365; 96366; 96367; 96375; A4217; C9113; J0692; J1100; J1644; J1650; J2405; J2543; J3370; J3475; J3480; J3490; J7030; J7050; P9016; Q9967

== ENCOUNTER 2021-02-05 05:59 | Emergency (ER) | payer MEDICARE, MEDICAID ==
[2021-02-05] MEDS ORDERED: GASTROGRAFIN 30 ML BOT ONE (12:22)
== END 2021-02-05 07:01 | disposition home or self-care (01) ==
LOC: ERS 05:59
DX: Z43.1 Encounter for attention to gastrostomy (principal); K43.9 Ventral hernia without obstruction or gangrene; E11.9 Type 2 diabetes mellitus without complications; K21.9 Gastro-esophageal reflux disease without esophagitis; D50.9 Iron deficiency anemia, unspecified; I10 Essential (primary) hypertension; G40.909 Epilepsy, unspecified, not intractable, without status epilepticus; J44.9 Chronic obstructive pulmonary disease, unspecified; F03.90 Unspecified dementia, unspecified severity, without behavioral disturbance, psychotic disturbance, mood disturbance, and anxiety; Z79.899 Other long term (current) drug therapy; Z86.73 Personal history of transient ischemic attack (TIA), and cerebral infarction without residual deficits; Z79.84 Long term (current) use of oral hypoglycemic drugs
CPT/HCPCS: 43762; 74018; Q9963

== ENCOUNTER 2021-02-15 00:02 | Inpatient (IN) | payer MEDICARE, MEDICAID ==
[2021-02-15 00:52] LABS: #Lymphocytes 0.7 thou/uL (1.20-3.40); #Monocytes 0.9 thou/uL (0.11-0.59); #Neutrophils 12.4 thou/uL (1.40-6.50); %Basophils 0.1 % (0.0-1.0); %Lymphocytes 5.3 % (21.0-51.0); %Monocytes 6.5 % (0.0-10.0); %Neutrophils 88.2 % (42.0-75.0); Hemoglobin 11.1 g/dL (14.0-18.0); Mean Corpuscular HGB CONC 32.8 g/dL (32.0-36.0); Mean Corpuscular Hemoglobin 27.8 pg (27.0-31.0); Mean Corpuscular Volume 84.5 fL (78.0-98.0); Mean Platelet Volume 11.5 fL (7.4-10.4); Platelet Count 176 thou/uL (130-400); RBC Distribution Width 17.5 % (11.5-14.5); Red Blood Cell (RBC) Count 4.01 mill/uL (4.70-6.10); White Blood Cell (WBC) Count 14.1 thou/uL (4.8-10.8)
[2021-02-15 01:08] LABS: INR-International Normal Ratio 1.1; PTT 37.9 sec (22.9-36.1); Prothrombin Time 14.4 sec (12.0-14.7)
[2021-02-15 01:12] LABS: ALT (SGPT) 14 U/L (8-55); AST (SGOT) 12 U/L (5-34); Albumin 3.5 g/dL (3.4-4.8); Alkaline Phosphatase 91 U/L (40-110); Anion Gap 15 mmol/L (10-20); BUN (Urea Nitrogen) 31 mg/dL (8.4-25.7); Bilirubin, Total 0.6 mg/dL (0.2-1.2); Calc. Creatinine Clearance 0 mL/min (70-130); Calcium 9.3 mg/dL (7.8-10.44); Carbon Dioxide 27 mmol/L (23-31); Chloride 101 mmol/L (98-107); Globulin 3.4 g/dL (2.4-3.5); Glucose 142 mg/dL (80-115); Potassium 4.2 mmol/L (3.5-5.1); Protein, Total 6.9 g/dL (5.8-8.1); Sodium 139 mmol/L (136-145)
[2021-02-15] MEDS ORDERED: Ondansetron PF 4 MG/2 ML Vial ONE (01:13)
[2021-02-15] MEDS ORDERED: Ondansetron PF 4 MG/2 ML Vial IVP PRN (03:29)
[2021-02-15] MEDS ORDERED: Dextrose 50% Abboject 50 ML SYRINGE SLOW IVP PRN (03:29)
[2021-02-15] MEDS ORDERED: Acetaminophen 325 MG TAB PO PRN (03:29)
[2021-02-15] MEDS ORDERED: Dextrose 5% in Water 1,000 ML IV PRN (03:29)
[2021-02-15] MEDS ORDERED: HumaLOG 300 UNITS/3 ML VIAL SC PRN (03:29)
[2021-02-15] MEDS ORDERED: Pantoprazole 40 MG VIAL ONE (03:38)
[2021-02-15] MEDS ORDERED: Sodium Chloride 0.9% (PF) 10 ML VIAL FS PRN (03:45)
[2021-02-15] MEDS ORDERED: Pantoprazole 40 MG VIAL IVP SCH (04:00)
[2021-02-15 05:02] VITALS: BMI 26.4
[2021-02-15] MEDS: Sodium Chloride 0.9% 1,000 ML IV SCH ×2 (05:31→16:08)
[2021-02-15 05:50] LABS: #Monocytes 0.7 thou/uL (0.11-0.59); #Neutrophils 10.5 thou/uL (1.40-6.50); %Basophils 0.1 % (0.0-1.0); %Lymphocytes 8.2 % (21.0-51.0); %Monocytes 5.4 % (0.0-10.0); %Neutrophils 86.4 % (42.0-75.0); Hemoglobin 9.4 g/dL (14.0-18.0); Mean Corpuscular HGB CONC 33.1 g/dL (32.0-36.0); Mean Corpuscular Hemoglobin 28.2 pg (27.0-31.0); Mean Corpuscular Volume 85.2 fL (78.0-98.0); Mean Platelet Volume 11.9 fL (7.4-10.4); Platelet Count 172 thou/uL (130-400); RBC Distribution Width 17.6 % (11.5-14.5); Red Blood Cell (RBC) Count 3.34 mill/uL (4.70-6.10); White Blood Cell (WBC) Count 12.2 thou/uL (4.8-10.8)
[2021-02-15 06:08] LABS: Anion Gap 15 mmol/L (10-20); BUN (Urea Nitrogen) 40 mg/dL (8.4-25.7); Calc. Creatinine Clearance 82 mL/min (70-130); Calcium 8.3 mg/dL (7.8-10.44); Carbon Dioxide 22 mmol/L (23-31); Chloride 105 mmol/L (98-107); Glucose 133 mg/dL (80-115); Potassium 4.1 mmol/L (3.5-5.1); Sodium 138 mmol/L (136-145)
[2021-02-15] MEDS ORDERED: Acetaminophen 650 MG/20.3 ML UDCUP PER TUBE PRN (07:27)
[2021-02-15 08:20] LABS: SARS-CoV-2 NAA Rapid Test Not Detected (NotDetected)
[2021-02-15] MEDS: Escitalopram Oxalate 10 mg Tablet PER TUBE SCH (09:23)
[2021-02-15] MEDS: levETIRAcetam 500 MG TAB PO SCH (09:24)
[2021-02-15] MEDS: Doxazosin Mesylate 1 MG TAB PER TUBE SCH (09:24)
[2021-02-15] MEDS ORDERED: Iopamidol-370 76% 500 ML 1 ML ONE (11:14)
[2021-02-15 11:43] LABS: Bacteria/HPF None Seen HPF (None Seen); Bilirubin Negative (Negative); Blood, Urine Negative (Negative); Clarity Clear (Clear); Glucose, Urine (Dipstick) Normal (Negative); Ketone, Urine 10 mg/dL (Negative); Leukocyte Negative Leu/uL (Negative); Nitrite Negative (Negative); Protein, Urine (Dipstick) 10 mg/dL (Neg-Trace); RBC/HPF 0-3 HPF (0-3); Squamous Epithelial 0-3 HPF (0-3); Urobilinogen Normal mg/dL (Less than 2); WBC/HPF 0-3 HPF (0-3); pH, Urine 5.5 (5.0-9.0)
[2021-02-15 11:44] LABS: Specific Gravity, Urine 1.048 (1.002-1.036)
[2021-02-15 11:45] LABS: Urine Culture Reflex No No
[2021-02-15] MEDS ORDERED: Sodium Chloride 0.9% 500 ML IV SCH (12:00)
[2021-02-15] MEDS: Pantoprazole 80 MG in Sodium Chloride 0.9% 100 ML IVPB SCH (14:44)
[2021-02-15 14:59] LABS: Hemoglobin 7.2 g/dL (14.0-18.0)
[2021-02-16 00:08] LABS: Hemoglobin 6.3 g/dL (14.0-18.0)
[2021-02-16] MEDS: Sodium Chloride 0.9% 1,000 ML IV SCH ×2 (05:05→21:11)
[2021-02-16 07:27] LABS: #Lymphocytes 1.1 thou/uL (1.20-3.40); #Monocytes 0.9 thou/uL (0.11-0.59); %Basophils 0.2 % (0.0-1.0); %Eosinophils 0.1 % (0.0-10.0); %Lymphocytes 11.6 % (21.0-51.0); %Monocytes 10.2 % (0.0-10.0); %Neutrophils 77.8 % (42.0-75.0); Hemoglobin 8.1 g/dL (14.0-18.0); Mean Corpuscular HGB CONC 32.4 g/dL (32.0-36.0); Mean Corpuscular Hemoglobin 28.4 pg (27.0-31.0); Mean Corpuscular Volume 87.8 fL (78.0-98.0); Mean Platelet Volume 11.7 fL (7.4-10.4); Platelet Count 131 thou/uL (130-400); RBC Distribution Width 16.7 % (11.5-14.5); Red Blood Cell (RBC) Count 2.84 mill/uL (4.70-6.10)
[2021-02-16] MEDS: Diltiazem 125 MG in Sodium Chloride 0.9% 100 ML IVPB SCH ×2 (07:33→17:35)
[2021-02-16] MEDS: levETIRAcetam 500 MG TAB PO SCH (07:42)
[2021-02-16] MEDS: Escitalopram Oxalate 10 mg Tablet PER TUBE SCH (07:42)
[2021-02-16 07:45] LABS: Anion Gap 9 mmol/L (10-20); BUN (Urea Nitrogen) 55 mg/dL (8.4-25.7); Calc. Creatinine Clearance 95 mL/min (70-130); Calcium 8.6 mg/dL (7.8-10.44); Carbon Dioxide 27 mmol/L (23-31); Chloride 113 mmol/L (98-107); Glucose 130 mg/dL (80-115); Potassium 3.8 mmol/L (3.5-5.1); Sodium 145 mmol/L (136-145)
[2021-02-16] MEDS: Doxazosin Mesylate 1 MG TAB PER TUBE SCH (08:03)
[2021-02-16 16:42] LABS: Hemoglobin 8.7 g/dL (14.0-18.0)
[2021-02-16] MEDS: Pantoprazole 80 MG in Sodium Chloride 0.9% 100 ML IVPB SCH ×2 (17:35)
[2021-02-17] MEDS: Diltiazem 125 MG in Sodium Chloride 0.9% 100 ML IVPB SCH (04:34)
[2021-02-17] MEDS: Pantoprazole 80 MG in Sodium Chloride 0.9% 100 ML IVPB SCH ×2 (04:35→14:00)
[2021-02-17] MEDS: Sodium Chloride 0.9% 1,000 ML IV SCH ×2 (04:35→17:52)
[2021-02-17 05:10] LABS: Eosinophils 1 % (0-10); Hemoglobin 8.3 g/dL (14.0-18.0); Lymphocytes 15 % (21-51); MDiff Complete? YES; Mean Corpuscular HGB CONC 33.7 g/dL (32.0-36.0); Mean Corpuscular Hemoglobin 29.4 pg (27.0-31.0); Mean Corpuscular Volume 87.3 fL (78.0-98.0); Mean Platelet Volume 11.3 fL (7.4-10.4); Metamyelocyte 1 % (0-0); Monocytes 9 % (0-10); Neutrophil 74 % (42-75); Platelet Count 115 thou/uL (130-400); Platelet Morphology Comment Appears Decreased; RBC Distribution Width 16.5 % (11.5-14.5); Red Blood Cell (RBC) Count 2.83 mill/uL (4.70-6.10); White Blood Cell (WBC) Count 7.9 thou/uL (4.8-10.8)
[2021-02-17 05:21] LABS: Anion Gap 8 mmol/L (10-20); BUN (Urea Nitrogen) 25 mg/dL (8.4-25.7); Calc. Creatinine Clearance 101 mL/min (70-130); Calcium 8.1 mg/dL (7.8-10.44); Carbon Dioxide 26 mmol/L (23-31); Chloride 110 mmol/L (98-107); Glucose 112 mg/dL (80-115); Magnesium 1.6 mg/dL (1.6-2.6); Potassium 3.2 mmol/L (3.5-5.1); Sodium 141 mmol/L (136-145)
[2021-02-17] MEDS: levETIRAcetam 500 MG TAB PO SCH (09:42)
[2021-02-17] MEDS: Doxazosin Mesylate 1 MG TAB PER TUBE SCH (09:43)
[2021-02-17] MEDS: Escitalopram Oxalate 10 mg Tablet PER TUBE SCH (09:43)
[2021-02-17] MEDS ORDERED: Electrolyte Replacement Protocol 1 EACH FS SCH (12:45)
[2021-02-17] MEDS ORDERED: Electrolyte Replacement Protocol FS PRN (13:00)
[2021-02-17] MEDS ORDERED: Potassium Bicarbonate/Cit Ac 20 MEQ TAB PER TUBE SCH (14:15)
[2021-02-17] MEDS ORDERED: Magnesium 2 GM/50 ML 2 GM in Premix Bag 1 BAG IVPB SCH (14:15)
[2021-02-18] MEDS: Pantoprazole 80 MG in Sodium Chloride 0.9% 100 ML IVPB SCH ×2 (00:06→10:10)
[2021-02-18 04:24] LABS: Anion Gap 7 mmol/L (10-20); BUN (Urea Nitrogen) 15 mg/dL (8.4-25.7); Calc. Creatinine Clearance 104 mL/min (70-130); Calcium 7.9 mg/dL (7.8-10.44); Carbon Dioxide 29 mmol/L (23-31); Chloride 107 mmol/L (98-107); Glucose 97 mg/dL (80-115); Potassium 3.6 mmol/L (3.5-5.1); Sodium 139 mmol/L (136-145)
[2021-02-18] MEDS ORDERED: Magnesium 2 GM/50 ML 2 GM in Premix Bag 1 BAG IVPB SCH (06:15)
[2021-02-18] MEDS: Sodium Chloride 0.9% 1,000 ML IV SCH (06:28)
[2021-02-18] MEDS: levETIRAcetam 500 MG TAB PO SCH (09:49)
[2021-02-18] MEDS: Escitalopram Oxalate 10 mg Tablet PER TUBE SCH (09:49)
[2021-02-18] MEDS: Doxazosin Mesylate 1 MG TAB PER TUBE SCH (09:52)
[2021-02-18] MEDS ORDERED: levETIRAcetam 500 MG TAB PO SCH (10:15)
[2021-02-18 10:26] LABS: #Eosinphils 0.2 thou/uL (0.0-0.7); #Lymphocytes 0.8 thou/uL (1.20-3.40); #Monocytes 0.5 thou/uL (0.11-0.59); %Basophils 0.1 % (0.0-1.0); %Eosinophils 3.5 % (0.0-10.0); %Lymphocytes 15.2 % (21.0-51.0); %Monocytes 8.6 % (0.0-10.0); %Neutrophils 72.6 % (42.0-75.0); Mean Corpuscular HGB CONC 33.5 g/dL (32.0-36.0); Mean Corpuscular Hemoglobin 29.4 pg (27.0-31.0); Mean Corpuscular Volume 87.9 fL (78.0-98.0); Platelet Count 116 thou/uL (130-400); RBC Distribution Width 16.3 % (11.5-14.5); Red Blood Cell (RBC) Count 2.71 mill/uL (4.70-6.10); White Blood Cell (WBC) Count 5.5 thou/uL (4.8-10.8)
[2021-02-18] MEDS ORDERED: Sodium Chloride 0.9% 1,000 ML IV SCH (15:00)
[2021-02-18] MEDS: Metoprolol Tartrate 25 MG TAB PO SCH ×2 (16:21→20:07)
[2021-02-18] MEDS: Pantoprazole 40 MG VIAL IVP SCH (20:07)
[2021-02-19] MEDS: levETIRAcetam 500 MG TAB PO SCH ×2 (08:56→23:24)
[2021-02-19] MEDS: Escitalopram Oxalate 10 mg Tablet PER TUBE SCH (08:56)
[2021-02-19] MEDS: Metoprolol Tartrate 25 MG TAB PO SCH ×2 (08:56→23:24)
[2021-02-19] MEDS: Pantoprazole 40 MG VIAL IVP SCH (08:57)
[2021-02-19] MEDS: Doxazosin Mesylate 1 MG TAB PER TUBE SCH (09:08)
[2021-02-19 09:17] LABS: Anion Gap 8 mmol/L (10-20); BUN (Urea Nitrogen) 12 mg/dL (8.4-25.7); Calc. Creatinine Clearance 97 mL/min (70-130); Calcium 8.7 mg/dL (7.8-10.44); Carbon Dioxide 30 mmol/L (23-31); Chloride 104 mmol/L (98-107); Glucose 117 mg/dL (80-115); Magnesium 1.9 mg/dL (1.6-2.6); Potassium 3.7 mmol/L (3.5-5.1); Sodium 138 mmol/L (136-145)
[2021-02-19] MEDS ORDERED: Magnesium 2 GM/50 ML 2 GM in Premix Bag 1 BAG IVPB SCH (10:45)
[2021-02-20 06:00] LABS: Anion Gap 6 mmol/L (10-20); BUN (Urea Nitrogen) 15 mg/dL (8.4-25.7); Calc. Creatinine Clearance 99 mL/min (70-130); Calcium 9.1 mg/dL (7.8-10.44); Carbon Dioxide 34 mmol/L (23-31); Chloride 101 mmol/L (98-107); Glucose 101 mg/dL (80-115); Magnesium 1.9 mg/dL (1.6-2.6); Potassium 3.7 mmol/L (3.5-5.1); Sodium 137 mmol/L (136-145)
[2021-02-20] MEDS ORDERED: Magnesium 2 GM/50 ML 2 GM in Premix Bag 1 BAG IVPB SCH (06:30)
[2021-02-20] MEDS: levETIRAcetam 500 MG TAB PO SCH (08:16)
[2021-02-20] MEDS: Doxazosin Mesylate 1 MG TAB PER TUBE SCH (08:16)
[2021-02-20] MEDS: Metoprolol Tartrate 25 MG TAB PO SCH (08:16)
[2021-02-20] MEDS: Escitalopram Oxalate 10 mg Tablet PER TUBE SCH (08:16)
[2021-02-20 11:09] VITALS: BP 152/72; TEMP 98.7
== END 2021-02-20 11:25 | DRG 381 ==
LOC: ERS 00:02 → 2NO 03:41
PROVIDERS: ADMIT Internal Medicine; ATTEND Internal Medicine
PROC: 30233N1 Transfusion of Nonautologous Red Blood Cells into Peripheral Vein, Percutaneous Approach (ICD-10-PCS; principal; 2021-02-16)
DX: K22.11 Ulcer of esophagus with bleeding (principal); I69.951 Hemiplegia and hemiparesis following unspecified cerebrovascular disease affecting right dominant side; D62 Acute posthemorrhagic anemia; I48.92 Unspecified atrial flutter; Z20.822 Contact with and (suspected) exposure to COVID-19; E11.9 Type 2 diabetes mellitus without complications; K21.9 Gastro-esophageal reflux disease without esophagitis; D50.9 Iron deficiency anemia, unspecified; I10 Essential (primary) hypertension; G40.909 Epilepsy, unspecified, not intractable, without status epilepticus; F01.50 Vascular dementia, unspecified severity, without behavioral disturbance, psychotic disturbance, mood disturbance, and anxiety; J44.9 Chronic obstructive pulmonary disease, unspecified; F41.9 Anxiety disorder, unspecified; F32.9 Major depressive disorder, single episode, unspecified; I48.0 Paroxysmal atrial fibrillation; R13.12 Dysphagia, oropharyngeal phase; N40.0 Benign prostatic hyperplasia without lower urinary tract symptoms; D72.829 Elevated white blood cell count, unspecified; I69.920 Aphasia following unspecified cerebrovascular disease; Z79.84 Long term (current) use of oral hypoglycemic drugs; Z88.5 Allergy status to narcotic agent; Z79.899 Other long term (current) drug therapy; I69.991 Dysphagia following unspecified cerebrovascular disease; Z98.890 Other specified postprocedural states
CPT/HCPCS: 36415; 36416; 36430; 74018; 74177; 80048; 80053; 81001; 83735; 84443; 85025; 85610; 85730; 86850; 86900; 86901; 93005; 93010; 96374; 96375; C9113; J2405; J3475; J3490; P9016; Q9967; U0002

== ENCOUNTER 2021-06-18 11:50 | Inpatient (IN) | payer MEDICARE, MEDICAID ==
[2021-06-18 12:50] LABS: #Lymphocytes 0.7 thou/uL (1.20-3.40); #Monocytes 0.6 thou/uL (0.11-0.59); #Neutrophils 11.8 thou/uL (1.40-6.50); %Eosinophils 0.3 % (0.0-10.0); %Lymphocytes 5.1 % (21.0-51.0); %Monocytes 4.6 % (0.0-10.0); Hemoglobin 13.4 g/dL (14.0-18.0); Mean Corpuscular HGB CONC 34.3 g/dL (32.0-36.0); Mean Corpuscular Hemoglobin 29.3 pg (27.0-31.0); Mean Corpuscular Volume 85.2 fL (78.0-98.0); Platelet Count 151 thou/uL (130-400); RBC Distribution Width 16.3 % (11.5-14.5); Red Blood Cell (RBC) Count 4.58 mill/uL (4.70-6.10); White Blood Cell (WBC) Count 13.1 thou/uL (4.8-10.8)
[2021-06-18 13:01] LABS: Anisocytosis SLIGHT = 6-15 cells (100X) (0-5/hpf); Large Platelets SLIGHT; MDiff Complete? YES; Platelet Morphology Comment Appears Adequate; Polychromasia SLIGHT = 2-3 cells (100X) (0-2/hpf); Prothrombin Time 13.1 sec (12.0-14.7)
[2021-06-18 13:02] LABS: PTT 34.4 sec (22.9-36.1)
[2021-06-18 13:09] LABS: ALT (SGPT) 19 U/L (8-55); AST (SGOT) 15 U/L (5-34); Albumin 3.9 g/dL (3.4-4.8); Alkaline Phosphatase 108 U/L (40-110); Anion Gap 13 mmol/L (10-20); BUN (Urea Nitrogen) 24 mg/dL (8.4-25.7); Bilirubin, Total 0.6 mg/dL (0.2-1.2); Calc. Creatinine Clearance 0 mL/min (70-130); Carbon Dioxide 31 mmol/L (23-31); Chloride 99 mmol/L (98-107); Globulin 3.9 g/dL (2.4-3.5); Glucose 124 mg/dL (80-115); Lipase 23 U/L (8-78); Potassium 3.9 mmol/L (3.5-5.1); Protein, Total 7.8 g/dL (5.8-8.1); Sodium 139 mmol/L (136-145)
[2021-06-18] MEDS ORDERED: Iopamidol-370 76% 500 ML 1 ML ONE (13:25)
[2021-06-18 13:27] LABS: Bacteria/HPF None Seen HPF (None Seen); Bilirubin Negative (Negative); Blood, Urine 1+ (Negative); Clarity Clear (Clear); Glucose, Urine (Dipstick) Normal (Negative); Ketone, Urine Negative (Negative); Leukocyte Negative Leu/uL (Negative); Nitrite Negative (Negative); Protein, Urine (Dipstick) 10 mg/dL (Neg-Trace); RBC/HPF Greater than 50 HPF (0-3); Specific Gravity, Urine 1.021 (1.002-1.036); Squamous Epithelial None Seen HPF (0-3); Urobilinogen Normal mg/dL (Less than 2); WBC/HPF 0-3 HPF (0-3)
[2021-06-18] MEDS ORDERED: Pantoprazole 40 MG VIAL ONE (14:42)
[2021-06-18] MEDS ORDERED: Pantoprazole 80 MG, Admixture Fee 1 EACH in Sodium Chloride 0.9% 100 ML IVPB SCH (15:30)
[2021-06-18 17:47] LABS: SARS-CoV-2 NAA Rapid Test DETECTED (NotDetected)
[2021-06-19] MEDS ORDERED: Guaifenesin DM 100-10/5 ML UDCUP PO PRN (00:29)
[2021-06-19] MEDS ORDERED: Ondansetron PF 4 MG/2 ML Vial IVP PRN (00:29)
[2021-06-19] MEDS ORDERED: Dexamethasone 4 mg/ml Vial SLOW IVP SCH ×2 (00:45→09:00)
[2021-06-19 02:35] VITALS: BMI 22.1
[2021-06-19] MEDS ORDERED: Dextrose 50% Abboject 50 ML SYRINGE SLOW IVP PRN (02:35)
[2021-06-19] MEDS ORDERED: Dextrose 5% in Water 1,000 ML IV PRN (02:35)
[2021-06-19] MEDS ORDERED: HumaLOG 300 UNITS/3 ML VIAL SC PRN ×2 (02:35)
[2021-06-19] MEDS ORDERED: Dexamethasone 4 mg/ml Vial ONE ×2 (02:39→07:55)
[2021-06-19 06:43] LABS: #Lymphocytes 0.3 thou/uL (1.20-3.40); #Monocytes 0.1 thou/uL (0.11-0.59); #Neutrophils 8.9 thou/uL (1.40-6.50); %Basophils 0.5 % (0.0-1.0); %Eosinophils 0.1 % (0.0-10.0); %Lymphocytes 3.2 % (21.0-51.0); %Monocytes 0.7 % (0.0-10.0); %Neutrophils 95.5 % (42.0-75.0); Hemoglobin 12.8 g/dL (14.0-18.0); Mean Corpuscular HGB CONC 34.1 g/dL (32.0-36.0); Mean Corpuscular Hemoglobin 29.2 pg (27.0-31.0); Mean Corpuscular Volume 85.7 fL (78.0-98.0); Mean Platelet Volume 11.8 fL (7.4-10.4); Platelet Count 125 thou/uL (130-400); RBC Distribution Width 16.3 % (11.5-14.5); Red Blood Cell (RBC) Count 4.37 mill/uL (4.70-6.10); White Blood Cell (WBC) Count 9.4 thou/uL (4.8-10.8)
[2021-06-19 06:56] LABS: Hemoglobin A1c 5.3 % (4.0-6.0)
[2021-06-19 07:09] LABS: ALT (SGPT) 15 U/L (8-55); AST (SGOT) 14 U/L (5-34); Albumin 3.8 g/dL (3.4-4.8); Alkaline Phosphatase 107 U/L (40-110); Anion Gap 14 mmol/L (10-20); BUN (Urea Nitrogen) 20 mg/dL (8.4-25.7); Bilirubin, Total 0.9 mg/dL (0.2-1.2); Calc. Creatinine Clearance 80 mL/min (70-130); Calcium 9.6 mg/dL (7.8-10.44); Carbon Dioxide 25 mmol/L (23-31); Chloride 104 mmol/L (98-107); Globulin 3.3 g/dL (2.4-3.5); Glucose 118 mg/dL (80-115); Potassium 4.1 mmol/L (3.5-5.1); Protein, Total 7.1 g/dL (5.8-8.1); Sodium 139 mmol/L (136-145)
[2021-06-19] MEDS ORDERED: Metoprolol Tartrate 25 MG TAB ONE (07:54)
[2021-06-19 08:12] LABS: Glucose 110 mg/dL (80-115)
[2021-06-19] MEDS: Amlodipine 10 MG TAB PER TUBE SCH (08:23)
[2021-06-19] MEDS: levETIRAcetam 500 mg/5 ml Oral Solution PER TUBE SCH (08:25)
[2021-06-19] MEDS: Doxazosin Mesylate 1 MG TAB PER TUBE SCH (08:25)
[2021-06-19] MEDS ORDERED: Metoprolol Tartrate 25 MG TAB PO SCH (09:00)
[2021-06-19 13:25] LABS: Glucose 152 mg/dL (80-115)
[2021-06-19 17:32] LABS: Glucose 147 mg/dL (80-115)
[2021-06-19] MEDS ORDERED: Sodium Chloride 0.9% (PF) 10 ML VIAL FS PRN (19:45)
[2021-06-19] MEDS: Atorvastatin Calcium 20 MG TAB PER TUBE SCH (20:56)
[2021-06-19] MEDS: Pantoprazole 40 MG VIAL IVP SCH (20:56)
[2021-06-19] MEDS: Metoprolol Tartrate 25 MG TAB PER TUBE SCH (20:56)
[2021-06-20] MEDS: Amlodipine 10 MG TAB PER TUBE SCH (10:14)
[2021-06-20] MEDS: Pantoprazole 40 MG VIAL IVP SCH ×2 (10:14→22:33)
[2021-06-20] MEDS: Metoprolol Tartrate 25 MG TAB PER TUBE SCH ×2 (10:15→22:21)
[2021-06-20] MEDS: Doxazosin Mesylate 1 MG TAB PER TUBE SCH (10:18)
[2021-06-20] MEDS: levETIRAcetam 500 mg/5 ml Oral Solution PER TUBE SCH (10:18)
[2021-06-20] MEDS: Atorvastatin Calcium 20 MG TAB PER TUBE SCH (22:22)
[2021-06-21 06:22] LABS: Eosinophils 1 % (0-10); Hemoglobin 12.3 g/dL (14.0-18.0); Lymphocytes 14 % (21-51); MDiff Complete? YES; Mean Corpuscular HGB CONC 34.1 g/dL (32.0-36.0); Mean Corpuscular Hemoglobin 29.3 pg (27.0-31.0); Mean Corpuscular Volume 85.9 fL (78.0-98.0); Monocytes 6 % (0-10); Neutrophil 79 % (42-75); Platelet Count 136 thou/uL (130-400); Platelet Morphology Comment Appears Adequate; RBC Distribution Width 16.5 % (11.5-14.5); Red Blood Cell (RBC) Count 4.18 mill/uL (4.70-6.10); White Blood Cell (WBC) Count 6.8 thou/uL (4.8-10.8)
[2021-06-21] MEDS: levETIRAcetam 500 mg/5 ml Oral Solution PER TUBE SCH (09:53)
[2021-06-21] MEDS: Doxazosin Mesylate 1 MG TAB PER TUBE SCH (09:53)
[2021-06-21] MEDS: Amlodipine 10 MG TAB PER TUBE SCH (09:54)
[2021-06-21] MEDS: Pantoprazole 40 MG VIAL IVP SCH ×2 (09:54→20:55)
[2021-06-21] MEDS: Metoprolol Tartrate 25 MG TAB PER TUBE SCH ×2 (09:54→20:55)
[2021-06-21] MEDS: Atorvastatin Calcium 20 MG TAB PER TUBE SCH (20:55)
[2021-06-22 06:34] LABS: #Eosinphils 0.1 thou/uL (0.0-0.7); #Lymphocytes 1.4 thou/uL (1.20-3.40); #Monocytes 0.9 thou/uL (0.11-0.59); #Neutrophils 5.2 thou/uL (1.40-6.50); %Basophils 0.2 % (0.0-1.0); %Eosinophils 1.6 % (0.0-10.0); %Lymphocytes 18.2 % (21.0-51.0); %Monocytes 11.3 % (0.0-10.0); %Neutrophils 68.7 % (42.0-75.0); Hemoglobin 12.2 g/dL (14.0-18.0); Mean Corpuscular HGB CONC 34.2 g/dL (32.0-36.0); Mean Corpuscular Hemoglobin 29.4 pg (27.0-31.0); Mean Corpuscular Volume 86.1 fL (78.0-98.0); Mean Platelet Volume 11.7 fL (7.4-10.4); Platelet Count 145 thou/uL (130-400); RBC Distribution Width 16.4 % (11.5-14.5); Red Blood Cell (RBC) Count 4.14 mill/uL (4.70-6.10); White Blood Cell (WBC) Count 7.6 thou/uL (4.8-10.8)
[2021-06-22] MEDS: Pantoprazole 40 MG GRANULES PACKET PER TUBE SCH ×2 (08:56→21:29)
[2021-06-22] MEDS: Metoprolol Tartrate 25 MG TAB PER TUBE SCH ×2 (08:56→21:29)
[2021-06-22] MEDS: Doxazosin Mesylate 1 MG TAB PER TUBE SCH (08:56)
[2021-06-22] MEDS: Amlodipine 10 MG TAB PER TUBE SCH (08:56)
[2021-06-22] MEDS: levETIRAcetam 500 mg/5 ml Oral Solution PER TUBE SCH (08:56)
[2021-06-22] MEDS: Atorvastatin Calcium 20 MG TAB PER TUBE SCH (21:29)
[2021-06-23] MEDS: Amlodipine 10 MG TAB PER TUBE SCH (08:24)
[2021-06-23] MEDS: Pantoprazole 40 MG GRANULES PACKET PER TUBE SCH ×2 (08:25→20:10)
[2021-06-23] MEDS: Metoprolol Tartrate 25 MG TAB PER TUBE SCH ×2 (08:25→20:10)
[2021-06-23] MEDS: Doxazosin Mesylate 1 MG TAB PER TUBE SCH (08:27)
[2021-06-23] MEDS: levETIRAcetam 500 mg/5 ml Oral Solution PER TUBE SCH (08:27)
[2021-06-23] MEDS: Atorvastatin Calcium 20 MG TAB PER TUBE SCH (20:09)
[2021-06-23] MEDS: Guaifenesin DM 100-10/5 ML UDCUP PER TUBE PRN (20:10)
[2021-06-24] MEDS: Doxazosin Mesylate 1 MG TAB PER TUBE SCH (08:22)
[2021-06-24] MEDS: Pantoprazole 40 MG GRANULES PACKET PER TUBE SCH ×2 (08:22→20:54)
[2021-06-24] MEDS: Metoprolol Tartrate 25 MG TAB PER TUBE SCH ×2 (08:22→20:54)
[2021-06-24] MEDS: Amlodipine 10 MG TAB PER TUBE SCH (08:22)
[2021-06-24] MEDS: levETIRAcetam 500 mg/5 ml Oral Solution PER TUBE SCH (08:22)
[2021-06-24] MEDS: Atorvastatin Calcium 20 MG TAB PER TUBE SCH (20:54)
[2021-06-25] MEDS: levETIRAcetam 500 mg/5 ml Oral Solution PER TUBE SCH (08:36)
[2021-06-25] MEDS: Metoprolol Tartrate 25 MG TAB PER TUBE SCH ×2 (08:36→20:37)
[2021-06-25] MEDS: Pantoprazole 40 MG GRANULES PACKET PER TUBE SCH ×2 (08:36→20:37)
[2021-06-25] MEDS: Amlodipine 10 MG TAB PER TUBE SCH (08:37)
[2021-06-25] MEDS: Doxazosin Mesylate 1 MG TAB PER TUBE SCH (08:37)
[2021-06-25] MEDS: Atorvastatin Calcium 20 MG TAB PER TUBE SCH (20:37)
[2021-06-25] MEDS: Guaifenesin DM 100-10/5 ML UDCUP PER TUBE PRN (20:37)
[2021-06-26] MEDS: levETIRAcetam 500 mg/5 ml Oral Solution PER TUBE SCH (08:06)
[2021-06-26] MEDS: Pantoprazole 40 MG GRANULES PACKET PER TUBE SCH ×2 (08:06→20:47)
[2021-06-26] MEDS: Amlodipine 10 MG TAB PER TUBE SCH (08:06)
[2021-06-26] MEDS: Metoprolol Tartrate 25 MG TAB PER TUBE SCH ×2 (08:06→20:47)
[2021-06-26] MEDS: Doxazosin Mesylate 1 MG TAB PER TUBE SCH (08:06)
[2021-06-26] MEDS: Atorvastatin Calcium 20 MG TAB PER TUBE SCH (20:47)
[2021-06-27] MEDS: Pantoprazole 40 MG GRANULES PACKET PER TUBE SCH ×2 (08:54→21:43)
[2021-06-27] MEDS: levETIRAcetam 500 mg/5 ml Oral Solution PER TUBE SCH (08:54)
[2021-06-27] MEDS: Doxazosin Mesylate 1 MG TAB PER TUBE SCH (08:54)
[2021-06-27] MEDS: Metoprolol Tartrate 25 MG TAB PER TUBE SCH ×2 (08:54→21:43)
[2021-06-27] MEDS: Amlodipine 10 MG TAB PER TUBE SCH (08:54)
[2021-06-27] MEDS: Atorvastatin Calcium 20 MG TAB PER TUBE SCH (21:43)
[2021-06-28] MEDS: Pantoprazole 40 MG GRANULES PACKET PER TUBE SCH ×2 (08:49→20:55)
[2021-06-28] MEDS: Amlodipine 10 MG TAB PER TUBE SCH (08:49)
[2021-06-28] MEDS: Metoprolol Tartrate 25 MG TAB PER TUBE SCH ×2 (08:49→20:54)
[2021-06-28] MEDS: levETIRAcetam 500 mg/5 ml Oral Solution PER TUBE SCH (08:49)
[2021-06-28] MEDS: Doxazosin Mesylate 1 MG TAB PER TUBE SCH (08:49)
[2021-06-28] MEDS: Atorvastatin Calcium 20 MG TAB PER TUBE SCH (20:54)
[2021-06-29 07:45] VITALS: BP 122/71; TEMP 98.1
[2021-06-29 08:29] LABS: #Eosinphils 0.2 thou/uL (0.0-0.7); #Monocytes 0.7 thou/uL (0.11-0.59); #Neutrophils 4.4 thou/uL (1.40-6.50); %Basophils 0.8 % (0.0-1.0); %Eosinophils 2.7 % (0.0-10.0); %Lymphocytes 16.4 % (21.0-51.0); %Monocytes 10.8 % (0.0-10.0); %Neutrophils 69.3 % (42.0-75.0); Mean Corpuscular HGB CONC 33.6 g/dL (32.0-36.0); Mean Corpuscular Hemoglobin 29.3 pg (27.0-31.0); Mean Corpuscular Volume 87.3 fL (78.0-98.0); Mean Platelet Volume 12.7 fL (7.4-10.4); Platelet Count 141 thou/uL (130-400); RBC Distribution Width 16.2 % (11.5-14.5); Red Blood Cell (RBC) Count 4.11 mill/uL (4.70-6.10); White Blood Cell (WBC) Count 6.3 thou/uL (4.8-10.8)
[2021-06-29 08:42] LABS: Anion Gap 11 mmol/L (10-20); BUN (Urea Nitrogen) 27 mg/dL (8.4-25.7); Calc. Creatinine Clearance 85 mL/min (70-130); Calcium 9.3 mg/dL (7.8-10.44); Carbon Dioxide 30 mmol/L (23-31); Chloride 102 mmol/L (98-107); Glucose 84 mg/dL (80-115); Potassium 4.2 mmol/L (3.5-5.1); Sodium 139 mmol/L (136-145)
[2021-06-29] MEDS: Amlodipine 10 MG TAB PER TUBE SCH (08:44)
[2021-06-29] MEDS: Doxazosin Mesylate 1 MG TAB PER TUBE SCH (08:44)
[2021-06-29] MEDS: Metoprolol Tartrate 25 MG TAB PER TUBE SCH (08:44)
[2021-06-29] MEDS: levETIRAcetam 500 mg/5 ml Oral Solution PER TUBE SCH (08:44)
[2021-06-29] MEDS: Pantoprazole 40 MG GRANULES PACKET PER TUBE SCH (08:45)
== END 2021-06-29 17:17 | DRG 368 ==
LOC: ERS 11:50 → ERHOLD 15:20 → T4-B 06-19 15:10 → OBSVTOIN 06-19 18:49
PROVIDERS: ADMIT Family Medicine; ATTEND Internal Medicine
PROC: 8E0ZXY6 Isolation (ICD-10-PCS; principal; 2021-06-19)
DX: K21.01 Gastro-esophageal reflux disease with esophagitis, with bleeding (principal); K22.11 Ulcer of esophagus with bleeding; U07.1 COVID-19; E46 Unspecified protein-calorie malnutrition; E11.9 Type 2 diabetes mellitus without complications; K21.9 Gastro-esophageal reflux disease without esophagitis; I10 Essential (primary) hypertension; F01.50 Vascular dementia, unspecified severity, without behavioral disturbance, psychotic disturbance, mood disturbance, and anxiety; F41.9 Anxiety disorder, unspecified; R13.12 Dysphagia, oropharyngeal phase; F32.9 Major depressive disorder, single episode, unspecified; N40.0 Benign prostatic hyperplasia without lower urinary tract symptoms; I48.91 Unspecified atrial fibrillation; K43.9 Ventral hernia without obstruction or gangrene; G40.909 Epilepsy, unspecified, not intractable, without status epilepticus; J44.9 Chronic obstructive pulmonary disease, unspecified; Z88.5 Allergy status to narcotic agent; Z79.899 Other long term (current) drug therapy; Z86.73 Personal history of transient ischemic attack (TIA), and cerebral infarction without residual deficits; Z93.1 Gastrostomy status; Z68.22 Body mass index [BMI] 22.0-22.9, adult; Z83.3 Family history of diabetes mellitus; Z82.49 Family history of ischemic heart disease and other diseases of the circulatory system
CPT/HCPCS: 36415; 36416; 51701; 71045; 74177; 80048; 80053; 81003; 81015; 83036; 83605; 83690; 85025; 85610; 85730; 86850; 86900; 86901; 87040; 87086; 96365; 96366; 96375; 96376; C9113; G0378; J1100; J3490; Q9967; U0002

== ENCOUNTER 2021-07-21 07:43 | Inpatient (IN) | payer MEDICARE, MEDICAID ==
[2021-07-21 08:46] LABS: #Eosinphils 0.1 thou/uL (0.0-0.7); #Lymphocytes 0.7 thou/uL (1.20-3.40); #Monocytes 0.5 thou/uL (0.11-0.59); #Neutrophils 8.3 thou/uL (1.40-6.50); %Basophils 0.2 % (0.0-1.0); %Lymphocytes 7.7 % (21.0-51.0); %Monocytes 4.7 % (0.0-10.0); %Neutrophils 86.4 % (42.0-75.0); Mean Corpuscular HGB CONC 34.1 g/dL (32.0-36.0); Mean Corpuscular Hemoglobin 29.3 pg (27.0-31.0); Mean Corpuscular Volume 86.1 fL (78.0-98.0); Mean Platelet Volume 10.3 fL (7.4-10.4); Platelet Count 183 thou/uL (130-400); RBC Distribution Width 14.6 % (11.5-14.5); Red Blood Cell (RBC) Count 4.77 mill/uL (4.70-6.10); White Blood Cell (WBC) Count 9.6 thou/uL (4.8-10.8)
[2021-07-21 09:03] LABS: Prothrombin Time 13.4 sec (12.0-14.7)
[2021-07-21 09:04] LABS: PTT 39.9 sec (22.9-36.1)
[2021-07-21 09:08] LABS: ALT (SGPT) 27 U/L (8-55); AST (SGOT) 20 U/L (5-34); Albumin 4.1 g/dL (3.4-4.8); Alkaline Phosphatase 107 U/L (40-110); Anion Gap 15 mmol/L (10-20); BUN (Urea Nitrogen) 22 mg/dL (8.4-25.7); Bilirubin, Total 0.6 mg/dL (0.2-1.2); Calc. Creatinine Clearance 0 mL/min (70-130); Calcium 10.3 mg/dL (7.8-10.44); Carbon Dioxide 30 mmol/L (23-31); Chloride 97 mmol/L (98-107); Globulin 3.5 g/dL (2.4-3.5); Glucose 149 mg/dL (80-115); Lipase 29 U/L (8-78); Potassium 3.6 mmol/L (3.5-5.1); Protein, Total 7.6 g/dL (5.8-8.1); Sodium 138 mmol/L (136-145)
[2021-07-21] MEDS ORDERED: Octreotide Acetate 1,250 MCG in Sodium Chloride 0.9% 250 ML 250 ML IVPB SCH (09:15)
[2021-07-21] MEDS ORDERED: Pantoprazole 40 MG VIAL ONE (10:00)
[2021-07-21] MEDS ORDERED: Iopamidol-370 76% 500 ML 1 ML ONE (10:39)
[2021-07-21] MEDS ORDERED: Acetaminophen 650 MG Suppository PR PRN (12:53)
[2021-07-21] MEDS ORDERED: Senokot S 8.6-50 MG TAB PO PRN (12:53)
[2021-07-21] MEDS ORDERED: Dextrose 50% Abboject 50 ML SYRINGE SLOW IVP PRN (13:05)
[2021-07-21] MEDS ORDERED: HumaLOG 300 UNITS/3 ML VIAL SC PRN (13:05)
[2021-07-21] MEDS ORDERED: Dextrose 5% in Water 1,000 ML IV PRN (13:05)
[2021-07-21 14:04] VITALS: BMI 22.6
[2021-07-21 14:20] LABS: Platelet Count 170 thou/uL (130-400)
[2021-07-21] MEDS: Sodium Chloride 0.9% 1,000 ML IV SCH (14:29)
[2021-07-21 18:07] LABS: Hemoglobin 12.7 g/dL (14.0-18.0); Platelet Count 165 thou/uL (130-400)
[2021-07-21 18:30] LABS: SARS-CoV-2 PCR by NAA Not Detected (NotDetected)
[2021-07-21] MEDS: Albuterol Sulfate 2.5 mg/3 ml Neb NEB SCH ×2 (19:16→23:36)
[2021-07-21 21:14] LABS: Hemoglobin 12.6 g/dL (14.0-18.0)
[2021-07-21] MEDS: Atorvastatin Calcium 20 MG TAB PER TUBE SCH (21:23)
[2021-07-21] MEDS: Pantoprazole 80 MG, Admixture Fee 1 EACH in Sodium Chloride 0.9% 100 ML IVPB SCH (21:25)
[2021-07-22] MEDS: Sodium Chloride 0.9% 1,000 ML IV SCH ×3 (00:34→19:35)
[2021-07-22 05:02] LABS: #Lymphocytes 0.9 thou/uL (1.20-3.40); #Monocytes 0.7 thou/uL (0.11-0.59); #Neutrophils 6.2 thou/uL (1.40-6.50); %Basophils 0.3 % (0.0-1.0); %Eosinophils 0.6 % (0.0-10.0); %Lymphocytes 11.6 % (21.0-51.0); %Monocytes 9.2 % (0.0-10.0); %Neutrophils 78.4 % (42.0-75.0); Hemoglobin 11.6 g/dL (14.0-18.0); Mean Corpuscular HGB CONC 33.4 g/dL (32.0-36.0); Mean Corpuscular Hemoglobin 29.5 pg (27.0-31.0); Mean Corpuscular Volume 88.5 fL (78.0-98.0); Platelet Count 163 thou/uL (130-400); RBC Distribution Width 14.7 % (11.5-14.5); Red Blood Cell (RBC) Count 3.92 mill/uL (4.70-6.10); White Blood Cell (WBC) Count 7.9 thou/uL (4.8-10.8)
[2021-07-22 05:22] LABS: ALT (SGPT) 20 U/L (8-55); AST (SGOT) 13 U/L (5-34); Albumin 3.4 g/dL (3.4-4.8); Alkaline Phosphatase 96 U/L (40-110); Anion Gap 8 mmol/L (10-20); BUN (Urea Nitrogen) 20 mg/dL (8.4-25.7); Bilirubin, Total 0.7 mg/dL (0.2-1.2); Calc. Creatinine Clearance 85 mL/min (70-130); Calcium 9.1 mg/dL (7.8-10.44); Carbon Dioxide 31 mmol/L (23-31); Chloride 105 mmol/L (98-107); Globulin 2.8 g/dL (2.4-3.5); Glucose 161 mg/dL (80-115); Potassium 3.9 mmol/L (3.5-5.1); Protein, Total 6.2 g/dL (5.8-8.1); Sodium 140 mmol/L (136-145)
[2021-07-22] MEDS: Pantoprazole 80 MG, Admixture Fee 1 EACH in Sodium Chloride 0.9% 100 ML IVPB SCH (05:31)
[2021-07-22 06:06] LABS: Bacteria/HPF None Seen HPF (None Seen); Bilirubin Negative (Negative); Blood, Urine Negative (Negative); Clarity Clear (Clear); Glucose, Urine (Dipstick) Normal (Negative); Ketone, Urine Trace mg/dL (Negative); Leukocyte Negative Leu/uL (Negative); Nitrite Negative (Negative); Protein, Urine (Dipstick) 10 mg/dL (Neg-Trace); RBC/HPF 0-3 HPF (0-3); Specific Gravity, Urine 1.033 (1.002-1.036); Squamous Epithelial 0-3 HPF (0-3); Urobilinogen Normal mg/dL (Less than 2); WBC/HPF 0-3 HPF (0-3); pH, Urine 7.5 (5.0-9.0)
[2021-07-22 06:08] LABS: Urine Culture Reflex No No
[2021-07-22] MEDS: Albuterol Sulfate 2.5 mg/3 ml Neb NEB SCH ×3 (07:09→18:32)
[2021-07-22] MEDS ORDERED: levETIRAcetam 100 mg/ml Oral Solution PER TUBE SCH (09:00)
[2021-07-22] MEDS: Amlodipine 10 MG TAB PER TUBE SCH (09:47)
[2021-07-22] MEDS: levETIRAcetam 500 mg/5 ml Oral Solution PER TUBE SCH (09:47)
[2021-07-22] MEDS: Doxazosin Mesylate 1 MG TAB PER TUBE SCH (09:48)
[2021-07-22] MEDS ORDERED: FLU VACC QS2021-22(65YR UP)/PF 240 MCG/0.7 ML SYRINGE IM ONE (15:45)
[2021-07-22] MEDS: Atorvastatin Calcium 20 MG TAB PER TUBE SCH (20:30)
[2021-07-23] MEDS: Pantoprazole 80 MG, Admixture Fee 1 EACH in Sodium Chloride 0.9% 100 ML IVPB SCH (00:12)
[2021-07-23] MEDS: Albuterol Sulfate 2.5 mg/3 ml Neb NEB SCH ×4 (00:20→18:20)
[2021-07-23 05:55] LABS: Anion Gap 14 mmol/L (10-20); BUN (Urea Nitrogen) 12 mg/dL (8.4-25.7); Calc. Creatinine Clearance 99 mL/min (70-130); Calcium 8.4 mg/dL (7.8-10.44); Carbon Dioxide 19 mmol/L (23-31); Chloride 106 mmol/L (98-107); Glucose 118 mg/dL (80-115); Sodium 135 mmol/L (136-145)
[2021-07-23] MEDS: Sodium Chloride 0.9% 1,000 ML IV SCH ×2 (06:32→15:20)
[2021-07-23] MEDS ORDERED: Fentanyl 100 MCG/2 ML VIAL ONE (09:28)
[2021-07-23] MEDS: Doxazosin Mesylate 1 MG TAB PER TUBE SCH (10:55)
[2021-07-23] MEDS: levETIRAcetam 500 mg/5 ml Oral Solution PER TUBE SCH (10:55)
[2021-07-23] MEDS: Amlodipine 10 MG TAB PER TUBE SCH (10:55)
[2021-07-23 16:34] LABS: #Eosinphils 0.1 thou/uL (0.0-0.7); #Lymphocytes 0.6 thou/uL (1.20-3.40); #Monocytes 0.5 thou/uL (0.11-0.59); #Neutrophils 4.7 thou/uL (1.40-6.50); %Basophils 0.4 % (0.0-1.0); %Eosinophils 2.3 % (0.0-10.0); %Lymphocytes 10.3 % (21.0-51.0); Hemoglobin 11.7 g/dL (14.0-18.0); Mean Corpuscular HGB CONC 33.9 g/dL (32.0-36.0); Mean Corpuscular Hemoglobin 29.7 pg (27.0-31.0); Mean Corpuscular Volume 87.5 fL (78.0-98.0); Mean Platelet Volume 10.3 fL (7.4-10.4); Platelet Count 156 thou/uL (130-400); RBC Distribution Width 14.3 % (11.5-14.5); Red Blood Cell (RBC) Count 3.93 mill/uL (4.70-6.10)
[2021-07-23] MEDS: Atorvastatin Calcium 20 MG TAB PER TUBE SCH (20:46)
[2021-07-24] MEDS: Albuterol Sulfate 2.5 mg/3 ml Neb NEB SCH ×4 (00:08→18:54)
[2021-07-24] MEDS: Sodium Chloride 0.9% 1,000 ML IV SCH ×2 (01:08→17:33)
[2021-07-24] MEDS: Pantoprazole 80 MG, Admixture Fee 1 EACH in Sodium Chloride 0.9% 100 ML IVPB SCH (06:02)
[2021-07-24] MEDS: levETIRAcetam 500 mg/5 ml Oral Solution PER TUBE SCH (09:07)
[2021-07-24] MEDS: Amlodipine 10 MG TAB PER TUBE SCH (09:08)
[2021-07-24] MEDS: Doxazosin Mesylate 1 MG TAB PER TUBE SCH (09:08)
[2021-07-24] MEDS ORDERED: Sodium Chloride 0.9% (PF) 10 ML VIAL FS PRN (12:15)
[2021-07-24] MEDS ORDERED: PROPOFOL 200 MG/20 ML VIAL ONE (13:25)
[2021-07-24] MEDS ORDERED: Sodium Bicarbonate Tab 325 MG TAB PER TUBE PRN (16:00)
[2021-07-24] MEDS ORDERED: Pancrelipase DR 12,000 1 CAP FS PRN (16:00)
[2021-07-24] MEDS ORDERED: Pantoprazole 40 MG VIAL IVP SCH (21:00)
[2021-07-24] MEDS: Atorvastatin Calcium 20 MG TAB PER TUBE SCH (21:31)
[2021-07-25] MEDS: Albuterol Sulfate 2.5 mg/3 ml Neb NEB SCH ×4 (00:34→19:23)
[2021-07-25] MEDS: levETIRAcetam 500 mg/5 ml Oral Solution PER TUBE SCH (09:04)
[2021-07-25] MEDS: Amlodipine 10 MG TAB PER TUBE SCH (09:04)
[2021-07-25] MEDS: Doxazosin Mesylate 1 MG TAB PER TUBE SCH (09:04)
[2021-07-25] MEDS: Pantoprazole 40 MG GRANULES PACKET PER TUBE SCH (09:04)
[2021-07-25] MEDS ORDERED: Electrolyte Replacement Protocol 1 EACH FS SCH (10:45)
[2021-07-25 11:21] LABS: #Eosinphils 0.2 thou/uL (0.0-0.7); #Lymphocytes 0.7 thou/uL (1.20-3.40); #Monocytes 0.6 thou/uL (0.11-0.59); #Neutrophils 4.9 thou/uL (1.40-6.50); %Basophils 0.5 % (0.0-1.0); %Eosinophils 3.1 % (0.0-10.0); %Lymphocytes 10.6 % (21.0-51.0); %Monocytes 9.5 % (0.0-10.0); %Neutrophils 76.3 % (42.0-75.0); Hemoglobin 12.2 g/dL (14.0-18.0); Mean Corpuscular HGB CONC 33.9 g/dL (32.0-36.0); Mean Corpuscular Hemoglobin 29.8 pg (27.0-31.0); Mean Corpuscular Volume 87.8 fL (78.0-98.0); Mean Platelet Volume 10.3 fL (7.4-10.4); Platelet Count 161 thou/uL (130-400); RBC Distribution Width 14.2 % (11.5-14.5); Red Blood Cell (RBC) Count 4.09 mill/uL (4.70-6.10); White Blood Cell (WBC) Count 6.4 thou/uL (4.8-10.8)
[2021-07-25 11:39] LABS: Anion Gap 9 mmol/L (10-20); BUN (Urea Nitrogen) 13 mg/dL (8.4-25.7); Calc. Creatinine Clearance 95 mL/min (70-130); Calcium 9.2 mg/dL (7.8-10.44); Carbon Dioxide 27 mmol/L (23-31); Chloride 104 mmol/L (98-107); Glucose 113 mg/dL (80-115); Magnesium 1.6 mg/dL (1.6-2.6); Phosphorus 2.1 mg/dL (2.3-4.7); Potassium 3.2 mmol/L (3.5-5.1); Sodium 137 mmol/L (136-145)
[2021-07-25] MEDS ORDERED: Magnesium 2 GM/50 ML 2 GM in Premix Bag 1 BAG IVPB SCH (12:45)
[2021-07-25] MEDS ORDERED: Potassium Chloride 20 MEQ TAB PO SCH (13:00)
[2021-07-25] MEDS: PHOS-NAK 1 PKT PACK PER TUBE SCH (16:35)
[2021-07-25] MEDS: Atorvastatin Calcium 20 MG TAB PER TUBE SCH (21:27)
[2021-07-26] MEDS: Albuterol Sulfate 2.5 mg/3 ml Neb NEB SCH ×2 (01:07→14:28)
[2021-07-26 06:49] LABS: Phosphorus 2.7 mg/dL (2.3-4.7)
[2021-07-26] MEDS: levETIRAcetam 500 mg/5 ml Oral Solution PER TUBE SCH (08:57)
[2021-07-26] MEDS: Doxazosin Mesylate 1 MG TAB PER TUBE SCH (08:57)
[2021-07-26] MEDS: Pantoprazole 40 MG GRANULES PACKET PER TUBE SCH (08:57)
[2021-07-26] MEDS: PHOS-NAK 1 PKT PACK PER TUBE SCH (08:57)
[2021-07-26] MEDS: Amlodipine 10 MG TAB PER TUBE SCH (08:57)
[2021-07-26 09:54] LABS: Anion Gap 15 mmol/L (10-20); BUN (Urea Nitrogen) 19 mg/dL (8.4-25.7); Calc. Creatinine Clearance 96 mL/min (70-130); Carbon Dioxide 25 mmol/L (23-31); Chloride 103 mmol/L (98-107); Glucose 81 mg/dL (80-115); Magnesium 1.9 mg/dL (1.6-2.6); Potassium 3.5 mmol/L (3.5-5.1); Sodium 139 mmol/L (136-145)
[2021-07-26 11:36] VITALS: TEMP 98.4
[2021-07-26 11:37] VITALS: BP 138/80
[2021-07-26] MEDS ORDERED: Magnesium 2 GM/50 ML 2 GM in Premix Bag 1 BAG IVPB SCH (12:15)
[2021-07-26] MEDS ORDERED: Potassium Chloride 20 MEQ TAB PO SCH (12:30)
== END 2021-07-26 15:10 | DRG 369 ==
LOC: ERS 07:43 → 2NO 12:00
PROVIDERS: ADMIT Internal Medicine; ATTEND Internal Medicine
PROC: 0DJ08ZZ Inspection of Upper Intestinal Tract, Via Natural or Artificial Opening Endoscopic (ICD-10-PCS; principal; 2021-07-24)
DX: K21.01 Gastro-esophageal reflux disease with esophagitis, with bleeding (principal); D62 Acute posthemorrhagic anemia; E87.2 Acidosis; E87.1 Hypo-osmolality and hyponatremia; I69.351 Hemiplegia and hemiparesis following cerebral infarction affecting right dominant side; Z20.822 Contact with and (suspected) exposure to COVID-19; E86.0 Dehydration; E11.9 Type 2 diabetes mellitus without complications; I10 Essential (primary) hypertension; N40.0 Benign prostatic hyperplasia without lower urinary tract symptoms; K44.9 Diaphragmatic hernia without obstruction or gangrene; E87.6 Hypokalemia; J44.9 Chronic obstructive pulmonary disease, unspecified; G40.909 Epilepsy, unspecified, not intractable, without status epilepticus; N32.89 Other specified disorders of bladder; F01.50 Vascular dementia, unspecified severity, without behavioral disturbance, psychotic disturbance, mood disturbance, and anxiety; K43.9 Ventral hernia without obstruction or gangrene; F41.9 Anxiety disorder, unspecified; F32.A Depression, unspecified; D50.9 Iron deficiency anemia, unspecified; R13.12 Dysphagia, oropharyngeal phase; Z87.11 Personal history of peptic ulcer disease; Z88.5 Allergy status to narcotic agent; Z79.899 Other long term (current) drug therapy; Z79.84 Long term (current) use of oral hypoglycemic drugs; I69.320 Aphasia following cerebral infarction; I69.391 Dysphagia following cerebral infarction; Z93.1 Gastrostomy status
CPT/HCPCS: 36415; 36416; 71045; 74022; 74177; 80048; 80053; 81001; 83605; 83690; 83735; 84100; 84484; 85025; 85610; 85730; 86900; 86901; 93005; 94640; C9113; J2354; J3010; J3475; J3490; J7050; J7611; Q9967; U0003; U0005

== ENCOUNTER 2021-07-31 09:34 | Inpatient (IN) | payer MEDICARE, MEDICAID ==
[2021-07-31] MEDS ORDERED: Iopamidol-370 76% 500 ML 1 ML ONE (09:41)
[2021-07-31] MEDS ORDERED: Cefepime 2 GM VIAL ONE (09:51)
[2021-07-31] MEDS ORDERED: Vancomycin 1 GM/200 ML BAG ONE (09:51)
[2021-07-31 10:38] LABS: Hemoglobin 13.1 g/dL (14.0-18.0); Mean Corpuscular HGB CONC 33.5 g/dL (32.0-36.0); Mean Corpuscular Hemoglobin 29.5 pg (27.0-31.0); Mean Platelet Volume 11.6 fL (7.4-10.4); Platelet Count 156 thou/uL (130-400); RBC Distribution Width 14.5 % (11.5-14.5); Red Blood Cell (RBC) Count 4.46 mill/uL (4.70-6.10); White Blood Cell (WBC) Count 18.9 thou/uL (4.8-10.8)
[2021-07-31] MEDS ORDERED: Ondansetron PF 4 MG/2 ML Vial ONE (10:38)
[2021-07-31 10:55] LABS: Band 14 % (5-11); Eosinophils 1 % (0-10); Lymphocytes 4 % (21-51); MDiff Complete? YES; Neutrophil 80 % (42-75); Platelet Morphology Comment Appears Adequate; RBC Morphology Normal; Reactive Lymphocytes 1 % (0-10)
[2021-07-31 10:58] LABS: ALT (SGPT) 22 U/L (8-55); AST (SGOT) 19 U/L (5-34); Albumin 3.8 g/dL (3.4-4.8); Alkaline Phosphatase 96 U/L (40-110); Anion Gap 20 mmol/L (10-20); BUN (Urea Nitrogen) 27 mg/dL (8.4-25.7); Bilirubin, Total 0.8 mg/dL (0.2-1.2); Calc. Creatinine Clearance 0 mL/min (70-130); Calcium 9.7 mg/dL (7.8-10.44); Carbon Dioxide 26 mmol/L (23-31); Chloride 98 mmol/L (98-107); Globulin 3.5 g/dL (2.4-3.5); Glucose 163 mg/dL (80-115); Lipase 32 U/L (8-78); Potassium 4.5 mmol/L (3.5-5.1); Protein, Total 7.3 g/dL (5.8-8.1); Sodium 139 mmol/L (136-145)
[2021-07-31 11:23] LABS: Bacteria/HPF None Seen HPF (None Seen); Bilirubin Negative (Negative); Blood, Urine Negative (Negative); Clarity Clear (Clear); Glucose, Urine (Dipstick) Normal (Negative); Ketone, Urine 40 mg/dL (Negative); Leukocyte Negative Leu/uL (Negative); Nitrite Negative (Negative); Protein, Urine (Dipstick) 50 mg/dL (Neg-Trace); RBC/HPF 0-3 HPF (0-3); Specific Gravity, Urine 1.023 (1.002-1.036); Squamous Epithelial None Seen HPF (0-3); WBC/HPF 0-3 HPF (0-3)
[2021-07-31] MEDS ORDERED: Ketorolac Tromethamine 30 MG/ML VIAL ONE (11:59)
[2021-07-31] MEDS ORDERED: Pantoprazole 40 MG VIAL ONE (12:19)
[2021-07-31] MEDS ORDERED: Pantoprazole 80 MG, Admixture Fee 1 EACH in Sodium Chloride 0.9% 100 ML IVPB SCH (12:30)
[2021-07-31 13:32] LABS: Lactic Acid 2.4 mmol/L (0.5-2.2)
[2021-07-31] MEDS ORDERED: Ondansetron PF 4 MG/2 ML Vial IVP PRN (14:49)
[2021-07-31] MEDS ORDERED: Acetaminophen 325 MG TAB PO PRN (14:49)
[2021-07-31] MEDS ORDERED: Enoxaparin Sodium 40 MG/0.4 ML SYRINGE SC SCH (15:00)
[2021-07-31] MEDS: Sodium Chloride 0.9% 1,000 ML IV SCH (17:28)
[2021-07-31] MEDS ORDERED: FLU VACC QS2021-22(65YR UP)/PF 240 MCG/0.7 ML SYRINGE IM ONE (18:00)
[2021-07-31] MEDS: Vancomycin 1.5 GRAM/300 ML BAG 1.5 GM in Premix Bag 1 BAG IVPB SCH (20:06)
[2021-07-31] MEDS: Cefepime 2 GM in Sodium Chloride 0.9% 100 ML IVPB SCH (22:12)
[2021-08-01 01:39] LABS: SARS-CoV-2 PCR by NAA Not Detected (NotDetected)
[2021-08-01] MEDS: Sodium Chloride 0.9% 1,000 ML IV SCH ×3 (02:59→21:35)
[2021-08-01 05:03] LABS: Band 13 % (5-11); Hemoglobin 10.3 g/dL (14.0-18.0); Lymphocytes 3 % (21-51); MDiff Complete? YES; Mean Corpuscular HGB CONC 32.5 g/dL (32.0-36.0); Mean Corpuscular Hemoglobin 29.3 pg (27.0-31.0); Mean Corpuscular Volume 90.2 fL (78.0-98.0); Mean Platelet Volume 11.4 fL (7.4-10.4); Monocytes 4 % (0-10); Neutrophil 80 % (42-75); Platelet Count 149 thou/uL (130-400); Platelet Morphology Comment Appears Adequate; RBC Distribution Width 14.5 % (11.5-14.5); Red Blood Cell (RBC) Count 3.53 mill/uL (4.70-6.10)
[2021-08-01 05:15] LABS: ALT (SGPT) 12 U/L (8-55); AST (SGOT) 10 U/L (5-34); Albumin 2.9 g/dL (3.4-4.8); Alkaline Phosphatase 73 U/L (40-110); Anion Gap 11 mmol/L (10-20); BUN (Urea Nitrogen) 23 mg/dL (8.4-25.7); Bilirubin, Total 0.6 mg/dL (0.2-1.2); Calc. Creatinine Clearance 102 mL/min (70-130); Calcium 8.5 mg/dL (7.8-10.44); Carbon Dioxide 23 mmol/L (23-31); Chloride 107 mmol/L (98-107); Globulin 2.4 g/dL (2.4-3.5); Glucose 97 mg/dL (80-115); Potassium 3.6 mmol/L (3.5-5.1); Protein, Total 5.3 g/dL (5.8-8.1); Sodium 137 mmol/L (136-145)
[2021-08-01] MEDS: Cefepime 2 GM in Sodium Chloride 0.9% 100 ML IVPB SCH ×3 (05:34→23:35)
[2021-08-01] MEDS ORDERED: Enoxaparin Sodium 40 MG/0.4 ML SYRINGE SC SCH (09:00)
[2021-08-01] MEDS: Pantoprazole 40 MG VIAL IVP SCH (09:39)
[2021-08-01] MEDS: Vancomycin 1.5 GRAM/300 ML BAG 1.5 GM in Premix Bag 1 BAG IVPB SCH ×2 (10:39→21:34)
[2021-08-01] MEDS ORDERED: HumaLOG 300 UNITS/3 ML VIAL SC PRN (15:21)
[2021-08-01] MEDS ORDERED: Dextrose 5% in Water 1,000 ML IV PRN (15:21)
[2021-08-01] MEDS ORDERED: Dextrose 50% Abboject 50 ML SYRINGE SLOW IVP PRN (15:21)
[2021-08-01 15:51] LABS: Hemoglobin 11.5 g/dL (14.0-18.0)
[2021-08-01 20:26] LABS: Hemoglobin 11.6 g/dL (14.0-18.0)
[2021-08-02 05:03] LABS: #Eosinphils 0.1 thou/uL (0.0-0.7); #Lymphocytes 0.8 thou/uL (1.20-3.40); #Monocytes 0.7 thou/uL (0.11-0.59); #Neutrophils 12.3 thou/uL (1.40-6.50); %Basophils 0.1 % (0.0-1.0); %Eosinophils 0.5 % (0.0-10.0); %Lymphocytes 5.5 % (21.0-51.0); %Monocytes 5.1 % (0.0-10.0); %Neutrophils 88.9 % (42.0-75.0); Hemoglobin 10.7 g/dL (14.0-18.0); Mean Corpuscular HGB CONC 32.1 g/dL (32.0-36.0); Mean Corpuscular Hemoglobin 28.6 pg (27.0-31.0); Mean Corpuscular Volume 88.9 fL (78.0-98.0); Mean Platelet Volume 11.3 fL (7.4-10.4); Platelet Count 144 thou/uL (130-400); RBC Distribution Width 14.3 % (11.5-14.5); Red Blood Cell (RBC) Count 3.75 mill/uL (4.70-6.10); White Blood Cell (WBC) Count 13.9 thou/uL (4.8-10.8)
[2021-08-02] MEDS: Sodium Chloride 0.9% 1,000 ML IV SCH ×3 (05:12→16:11)
[2021-08-02] MEDS: Cefepime 2 GM in Sodium Chloride 0.9% 100 ML IVPB SCH ×3 (05:53→23:41)
[2021-08-02] MEDS: Pantoprazole 40 MG VIAL IVP SCH (08:56)
[2021-08-02] MEDS: Vancomycin 1.5 GRAM/300 ML BAG 1.5 GM in Premix Bag 1 BAG IVPB SCH ×2 (08:56→21:07)
[2021-08-02] MEDS: chlorproMAZINE HCl 50 MG/2 ML AMP SLOW IVP PRN ×2 (10:16→17:58)
[2021-08-03] MEDS: Sodium Chloride 0.9% 1,000 ML IV SCH ×4 (01:41→18:57)
[2021-08-03] MEDS: chlorproMAZINE HCl 50 MG/2 ML AMP SLOW IVP PRN ×2 (01:43→13:46)
[2021-08-03 05:23] LABS: #Eosinphils 0.3 thou/uL (0.0-0.7); #Lymphocytes 0.5 thou/uL (1.20-3.40); #Monocytes 0.4 thou/uL (0.11-0.59); #Neutrophils 6.6 thou/uL (1.40-6.50); %Basophils 0.2 % (0.0-1.0); %Eosinophils 3.2 % (0.0-10.0); %Lymphocytes 6.9 % (21.0-51.0); %Monocytes 5.4 % (0.0-10.0); %Neutrophils 84.2 % (42.0-75.0); Hemoglobin 9.4 g/dL (14.0-18.0); Mean Corpuscular HGB CONC 32.3 g/dL (32.0-36.0); Mean Corpuscular Hemoglobin 28.8 pg (27.0-31.0); Mean Platelet Volume 11.1 fL (7.4-10.4); Platelet Count 148 thou/uL (130-400); RBC Distribution Width 14.3 % (11.5-14.5); Red Blood Cell (RBC) Count 3.27 mill/uL (4.70-6.10); White Blood Cell (WBC) Count 7.8 thou/uL (4.8-10.8)
[2021-08-03] MEDS: Cefepime 2 GM in Sodium Chloride 0.9% 100 ML IVPB SCH ×3 (05:39→22:28)
[2021-08-03] MEDS: Pantoprazole 40 MG VIAL IVP SCH (08:30)
[2021-08-04] MEDS: Sodium Chloride 0.9% 1,000 ML IV SCH ×3 (04:12→22:04)
[2021-08-04] MEDS: Cefepime 2 GM in Sodium Chloride 0.9% 100 ML IVPB SCH (06:01)
[2021-08-04 08:51] LABS: #Eosinphils 0.2 thou/uL (0.0-0.7); #Lymphocytes 0.6 thou/uL (1.20-3.40); #Monocytes 0.3 thou/uL (0.11-0.59); #Neutrophils 4.8 thou/uL (1.40-6.50); %Basophils 0.2 % (0.0-1.0); %Eosinophils 3.6 % (0.0-10.0); %Lymphocytes 9.4 % (21.0-51.0); %Monocytes 5.2 % (0.0-10.0); %Neutrophils 81.6 % (42.0-75.0); Hemoglobin 10.4 g/dL (14.0-18.0); Mean Corpuscular HGB CONC 34.6 g/dL (32.0-36.0); Mean Corpuscular Hemoglobin 30.5 pg (27.0-31.0); Mean Corpuscular Volume 88.2 fL (78.0-98.0); Mean Platelet Volume 10.6 fL (7.4-10.4); Platelet Count 156 thou/uL (130-400); Red Blood Cell (RBC) Count 3.39 mill/uL (4.70-6.10); White Blood Cell (WBC) Count 5.9 thou/uL (4.8-10.8)
[2021-08-04 09:11] LABS: Anion Gap 9 mmol/L (10-20); BUN (Urea Nitrogen) 15 mg/dL (8.4-25.7); Calc. Creatinine Clearance 118 mL/min (70-130); Calcium 8.4 mg/dL (7.8-10.44); Carbon Dioxide 31 mmol/L (23-31); Chloride 104 mmol/L (98-107); Glucose 115 mg/dL (80-115); Potassium 3.3 mmol/L (3.5-5.1); Sodium 141 mmol/L (136-145)
[2021-08-04] MEDS: Pantoprazole 40 MG VIAL IVP SCH (09:34)
[2021-08-04] MEDS ORDERED: Scopolamine 1.5 mg/72 hour Patch TD SCH (12:00)
[2021-08-04] MEDS ORDERED: Famotidine 20 MG TAB PER TUBE SCH (21:00)
[2021-08-04] MEDS ORDERED: Atorvastatin Calcium 20 MG TAB PER TUBE SCH (21:00)
[2021-08-04] MEDS: Cefdinir 300 MG CAP PO SCH (22:05)
[2021-08-04] MEDS: Amlodipine 10 MG TAB PER TUBE SCH (22:05)
[2021-08-05 05:14] LABS: #Eosinphils 0.2 thou/uL (0.0-0.7); #Lymphocytes 0.7 thou/uL (1.20-3.40); #Monocytes 0.7 thou/uL (0.11-0.59); #Neutrophils 4.5 thou/uL (1.40-6.50); %Basophils 0.4 % (0.0-1.0); %Eosinophils 2.9 % (0.0-10.0); %Lymphocytes 11.9 % (21.0-51.0); %Monocytes 10.8 % (0.0-10.0); Hemoglobin 10.2 g/dL (14.0-18.0); Mean Corpuscular HGB CONC 34.5 g/dL (32.0-36.0); Mean Corpuscular Hemoglobin 30.5 pg (27.0-31.0); Mean Corpuscular Volume 88.3 fL (78.0-98.0); Mean Platelet Volume 10.4 fL (7.4-10.4); Platelet Count 163 thou/uL (130-400); RBC Distribution Width 14.1 % (11.5-14.5); Red Blood Cell (RBC) Count 3.34 mill/uL (4.70-6.10); White Blood Cell (WBC) Count 6.1 thou/uL (4.8-10.8)
[2021-08-05] MEDS: Sodium Chloride 0.9% 1,000 ML IV SCH ×2 (05:28→11:36)
[2021-08-05 05:37] LABS: Anion Gap 10 mmol/L (10-20); BUN (Urea Nitrogen) 12 mg/dL (8.4-25.7); Calc. Creatinine Clearance 120 mL/min (70-130); Calcium 8.5 mg/dL (7.8-10.44); Carbon Dioxide 30 mmol/L (23-31); Chloride 101 mmol/L (98-107); Glucose 110 mg/dL (80-115); Potassium 3.3 mmol/L (3.5-5.1); Sodium 138 mmol/L (136-145)
[2021-08-05] MEDS ORDERED: Potassium Chloride 20 MEQ TAB PO SCH (07:45)
[2021-08-05] MEDS ORDERED: metFORMIN 500 MG TAB PER TUBE SCH (08:00)
[2021-08-05] MEDS ORDERED: Famotidine 20 MG TAB PER TUBE SCH (09:00)
[2021-08-05] MEDS ORDERED: levETIRAcetam 500 mg/5 ml Oral Solution PER TUBE SCH (09:00)
[2021-08-05] MEDS ORDERED: Ascorbic Acid 500 mg Chewable Tablet PO SCH (09:00)
[2021-08-05] MEDS ORDERED: Doxazosin Mesylate 1 MG TAB PER TUBE SCH (09:00)
[2021-08-05] MEDS ORDERED: Zinc Sulfate 220 MG CAP PER TUBE SCH (09:00)
[2021-08-05] MEDS: Amlodipine 10 MG TAB PER TUBE SCH (09:12)
[2021-08-05] MEDS: Cefdinir 300 MG CAP PO SCH (09:13)
[2021-08-05 13:19] VITALS: BP 128/72; TEMP 98.2
== END 2021-08-05 15:45 | DRG 871 ==
LOC: ERS 09:34 → 2NO 16:37
PROVIDERS: ADMIT Internal Medicine; ATTEND Internal Medicine
DX: A41.9 Sepsis, unspecified organism (principal); R65.21 Severe sepsis with septic shock; J15.9 Unspecified bacterial pneumonia; K92.0 Hematemesis; Z20.822 Contact with and (suspected) exposure to COVID-19; I10 Essential (primary) hypertension; E11.9 Type 2 diabetes mellitus without complications; R13.10 Dysphagia, unspecified; N40.0 Benign prostatic hyperplasia without lower urinary tract symptoms; D50.9 Iron deficiency anemia, unspecified; I48.0 Paroxysmal atrial fibrillation; K21.9 Gastro-esophageal reflux disease without esophagitis; J44.9 Chronic obstructive pulmonary disease, unspecified; G40.909 Epilepsy, unspecified, not intractable, without status epilepticus; F01.50 Vascular dementia, unspecified severity, without behavioral disturbance, psychotic disturbance, mood disturbance, and anxiety; F41.9 Anxiety disorder, unspecified; F32.A Depression, unspecified; Z93.1 Gastrostomy status; Z88.5 Allergy status to narcotic agent; Z79.84 Long term (current) use of oral hypoglycemic drugs; Z79.899 Other long term (current) drug therapy; I69.920 Aphasia following unspecified cerebrovascular disease; I69.991 Dysphagia following unspecified cerebrovascular disease
CPT/HCPCS: 36415; 36416; 51701; 71045; 71275; 80048; 80053; 81003; 81015; 82274; 83605; 83690; 84484; 85025; 86850; 86900; 86901; 87040; 87077; 87086; 87149; 93005; 93306; 96365; 96366; 96367; 96375; 96376; C9113; J0692; J1650; J1885; J1956; J2405; J3230; J3370; J3490; J7050; Q9967; U0003; U0005